=== PATIENT | female | born 1945 | race Caucasian/White ===

== ENCOUNTER 2019-09-16 10:27 | Emergency (ER) | payer MEDICARE ==
[~2019-09-16] VITALS: Ht 157.5 cm; Wt 59.1 kg
[2019-09-16 11:07] LABS: BASOPHILS % (AUTO) 0.6 % (0-1); EOSINOPHILS % (AUTO) 0.3 % (0-6); HEMATOCRIT 36.7 % (35.0-45.0); HEMOGLOBIN 12.6 g/dl (12.0-16.0); LYMPHOCYTES % (AUTO) 20.8 % (21-51); MEAN CORPUSCULAR HEMOGLOBIN 32.3 PG (27.0-31.0); MEAN CORPUSCULAR HGB CONC 34.3 g/dL (33.0-36.5); MEAN CORPUSCULAR VOLUME 94.1 FL (78-98); MEAN PLATELET VOLUME 8.9 FL (7.4-10.4); MONOCYTES # (AUTO) 0.7 X10'3 (0-0.9); NEUTROPHILS # (AUTO) 3.2 X10'3 (1.8-7.7); NEUTROPHILS % (AUTO) 64.3 % (42-75); PLATELET COUNT 299 X10'3 (140-440); RED CELL DISTRIBUTION WIDTH 14.9 % (11.5-14.5)
--- NOTE | 2019-09-16 11:15 | NUR ---
SPOKE WITH AVNI LIZAMA, CLINICIAN FOR [facility] REGARDING PT'S 5150. STATED THAT THE FACILITY CARE TAKERS HAVE NOTICED A DECLINE IN THE PT'S WELL BEING OVER THE PAST MTH, PT IS REFUSING TO BATHE, SLEEP IN HER BED, WILL NOT CHANGE HER CLOTHING FOR THE PAST MONTH. MS LIZAMA STATES THAT SHE HAD A MEETING WITH HER CONSERVATOR, FAMILY, STAFF AND IT WAS FELT THAT "PT NEEDED A HIGHTER LEVEL OF CARE". IT WAS MENTIONED THAT PT HAD A UTI OVER A MTH AGO AND WAS TX WITH ABX, A RECHECK WITH HER PMD WAS DONE LAST MTH FOR THE SAME UTI. NO FURTHER VISITS TO THE PT'S PMD HAS BEEN MADE AND IT WAS STATED THAT PT IS EXHIBITING SIMILAR BEHAVIORS NOW WHEN SHE HAD THE PAST UTI.
--- NOTE | 2019-09-16 11:15 | NUR ---
pt is a smoker. gem than a pack a day. pt refused smoking cessation and offered patch.
[2019-09-16 11:19] LABS: ALANINE AMINOTRANSFERASE 24 U/L (12-78); ALBUMIN 3.2 G/DL (3.4-5.0); ALBUMIN/GLOBULIN RATIO 0.7 (1.1-1.5); ALKALINE PHOSPHATASE 69 IU/L (46-116); ANION GAP 5 (8-16); ASPARTATE AMINO TRANSFERASE 18 U/L (10-37); BILIRUBIN,TOTAL 0.3 MG/DL (0.1-1.0); BLOOD UREA NITROGEN 10 MG/DL (7-18); BUN/CREATININE RATIO 17.5 (6.6-38.0); CALCIUM 9.1 MG/DL (8.5-10.1); CHLORIDE 96 MMOL/L (99-107); CREATININE 0.57 MG/DL (0.40-0.90); GLUCOSE 93 MG/DL (70-104); POTASSIUM 3.6 MMOL/L (3.5-5.1); SODIUM 131 MMOL/L (135-145); TOTAL CARBON DIOXIDE 30.3 MMOL/L (24-32); TOTAL PROTEIN 7.6 G/DL (6.4-8.2); eGFR > 90 ML/MIN
[2019-09-16 11:20] VITALS: BP 153/122
[2019-09-16 11:30] LABS: CLARITY,URINE CLEAR (Clear); COLOR,URINE YELLOW (Yellow); GLUCOSE, URINE NEGATIVE (Neg); KETONES,URINE NEGATIVE (Neg); LEUKOCYTE ESTERASE ,URINE NEGATIVE (Neg); NITRITES, URINE NEGATIVE (Neg); OCCULT BLOOD,URINE SMALL (Neg); PH,URINE 7.5 (4.8-8.0); PROTEIN,URINE NEGATIVE (Neg); UROBILINOGEN,URINE 0.2 E.U/dL (0.2-1.0)
[2019-09-16 11:31] LABS: ETHANOL < 0.010 GM/DL (0.0-0.010)
[2019-09-16 11:31] LABS: URINE AMPHETAMINE SCREEN NEGATIVE (Neg); URINE BARBITUATE SCREEN NEGATIVE (Neg); URINE BENZODIAZEPINES SCREEN NEGATIVE (Neg); URINE CANNABINOID SCREEN NEGATIVE (Neg); URINE COCAINE SCREEN NEGATIVE (Neg); URINE METHADONE SCREEN NEGATIVE (Neg); URINE OPIATE SCREEN NEGATIVE (Neg); URINE PHENCYCLIDINE SCREEN NEGATIVE (Neg)
[2019-09-16 11:35] LABS: MUCUS STRANDS MODERATE /LPF (Neg); SQUAMOUS EPITHELIAL CELL,UR MODERATE /LPF (FEW); UA COLLECTION TYPE CLN CATCH MIDSTREAM
[2019-09-16 11:36] LABS: BACTERIA,URINE FEW /HPF (Neg); WBC,URINE 0-4 /HPF (0-4)
--- NOTE | 2019-09-16 12:00 | NUR ---
pt recieved a sandwich, juice, cheese, and milk. pt requested a new brief.
[2019-09-16] MEDS ORDERED: OXYB5TAB16 PO (12:43)
[2019-09-16] MEDS ORDERED: RISP2TAB3 PO (12:43)
[2019-09-16] MEDS ORDERED: LURA40TA3 PO (12:43)
[2019-09-16] MEDS ORDERED: LURA120T PO (12:43)
[2019-09-16] MEDS ORDERED: BENZ1TAB7 PO (12:43)
[2019-09-16] MEDS ORDERED: DIVA-74 PO (12:43)
--- NOTE | 2019-09-16 13:14 | NUR ---
PACKET FAXED TO [facility]
--- NOTE | 2019-09-16 13:34 | NUR ---
Recieved conservator paperwook. Placed in chart.
--- NOTE | 2019-09-16 14:05 | NUR ---
pt eat a whole tray for lunch in addition to the snack earlier
--- NOTE | 2019-09-16 15:02 | NUR ---
Called [facility]. I was informed all calls should be made to public guardian not them. Medications were administered at 0730 this am.
[2019-09-16] MEDS ORDERED: benztropine 1mg tablet PO SCH (15:30)
[2019-09-16] MEDS ORDERED: OLANZapine 2.5MG tablet PO SCH (15:35)
--- NOTE | 2019-09-16 15:38 | NUR ---
SPOKE TO SAMIR SWANN ON THE [facility] FLOOR. PT IS GETTING INCREASINGLY MORE AGITATED. HUE GROSSMAN ORDERED ZYPREXA 5 MG ONCE WHICH MAY BE REPEATED IN ONE HOUR IF INEFFECTIVE. Spoke to IVAN Rodriguez on [facility]. Pt is accepted up on the floor. Michael reports that he spoke to Public Guardian who states that Pt's bed will be held for one month.
[2019-09-16] MEDS ORDERED: oxybutynin 5mg tablet PO SCH (16:00)
[2019-09-16] MEDS ORDERED: lurasidone 20mg tablet PO SCH (16:00)
[2019-09-16] MEDS ORDERED: risperiDONE 2mg tablet PO SCH (20:00)
[2019-09-16] MEDS ORDERED: divalproex sodium 250mg tablet PO SCH (20:00)
[2019-09-17] MEDS ORDERED: lurasidone 60mg tablet PO SCH (07:30)
== END 2019-09-16 16:39 ==
LOC: ER 10:27
DX: F88 Other disorders of psychological development (principal); R62.7 Adult failure to thrive; I10 Essential (primary) hypertension; Z88.0 Allergy status to penicillin; Z88.8 Allergy status to other drugs, medicaments and biological substances; Z79.899 Other long term (current) drug therapy
CPT/HCPCS: 36415; 80053; 80305; 80320; 81001; 84443; 85025; 99285

== ENCOUNTER 2019-09-16 15:50 | Inpatient (IN) | payer MEDICARE, MEDICAID ==
[~2019-09-16] VITALS: Ht 152.4 cm; Wt 60.2 kg
[~2019-09-16 15:50] MED LIST: BENZ1TAB7 PO; DIVA-74 PO; LURA120T PO; LURA40TA3 PO; OXYB5TAB16 PO; RISP2TAB3 PO
[2019-09-16] MEDS ORDERED: acetaminophen 325mg tablet PO PRN ×2 (16:35)
[2019-09-16] MEDS ORDERED: LORazepam 1 MG tablet PO PRN (16:35)
[2019-09-16] MEDS ORDERED: NICOTINE POLACRILEX 2 MG LOZENGE BC PRN (16:35)
[2019-09-16] MEDS ORDERED: mag hydrox/Alum hydrox/simeth 30ml oral suspension PO PRN (16:35)
[2019-09-16] MEDS ORDERED: loperamide 2mg capsule PO PRN (16:35)
[2019-09-16] MEDS ORDERED: magnesium hydroxide 30ml (MOM) UD suspension PO PRN (16:35)
--- NOTE | 2019-09-16 18:16 | NUR ---
NURSING ADMIT NOTE Patient resides at [facility] and is LPS Conserved. As reported from B/C over the past month patients health has been declining. She has been refusing to go on outings, refusing to bath, eat, and refusing to sleep in her bed. Patient reported that her brain is not working right. Patient placed on 5150 for GD on 09/16/19 and brought to [facility]. Patient admitted to unit 1650, brought up by Apolinar Rodriguez. This RN and RN Shabnam Campos attempted to do a skin check and get patient into shower. Patient refused both and requested to be taken to her room. Patient demanded her belongings and was fixated on her coke bottle that she had to have to drink water. Patient escorted to her room. MRSA swab collected and taken to the lab. Med rec completed.
[2019-09-16 20:00] VITALS: BP 119/66
[2019-09-16 21:54] VITALS: BP 119/66
[2019-09-16] MEDS: divalproex sodium 250mg tablet PO SCH (21:59)
[2019-09-16] MEDS: risperiDONE 2mg tablet PO SCH (22:00)
[2019-09-16] MEDS: benztropine 1mg tablet PO SCH (22:00)
--- NOTE | 2019-09-17 00:05 | NUR ---
Nurse note: Patient allowed staff to get vitals signs this shift and do a physical assessment, but towards the end of the assessment became irritable and declined rest of assessment. Patient stated "Are you fucking kidding me, I just want to sleep." and asked staff to leave. She refused to answer questions, refused 2 RN Skin Assessment and refused to sign paperwork. She remained irritable and asked staff to leave her alone so she could sleep. She remained in her room in bed refusing to work with staff the remainder of the shift.
[2019-09-17 08:00] VITALS: BP 154/73
[2019-09-17] MEDS ORDERED: lurasidone 60mg tablet PO SCH (08:00)
[2019-09-17] MEDS: nicotine 21mg patch - 24 hr TD SCH (08:00)
[2019-09-17] MEDS: benztropine 1mg tablet PO SCH ×2 (08:13→20:00)
[2019-09-17] MEDS: divalproex sodium 250mg tablet PO SCH ×2 (08:13→20:00)
[2019-09-17] MEDS: oxybutynin 5mg tablet PO SCH (08:14)
[2019-09-17] MEDS: risperiDONE 2mg tablet PO SCH ×2 (08:14→20:00)
[2019-09-17] MEDS: lurasidone 20mg tablet PO SCH (08:15)
--- NOTE | 2019-09-17 13:15 | NUR ---
Met with Adriane to complete Psychosocial Assessment. She reported she has been living at [facility] and wants to return there. She identified that she has been paranoid and has not wanted to go on outings. Per 5150 evaluation, Adriane had been reusing to bathe, refusing to sleep in her bed, wore the same clothes for the past month, only eating one meal a day and has lost 10 lbs since March. She has also been refusing to go on outings. Adriane has a long history of conservatorship and has been at [facility] since 2016 without any hospitalizations. DELMA Roldan Addendum: 09/17/19 at 1321 by Miriam Quigley Amended: Links added.
--- NOTE | 2019-09-17 13:21 | NUR ---
DISCHARGE PLANNING Called [facility] office to inquire if Ct is able to return to [facility] upon discharge. TRENT Marina, reported Ct is able to return to [facility] once she is stabilized. DELMA Roldan
--- NOTE | 2019-09-17 17:17 | NUR ---
Nursing Progress Note Legal hold:LPS Client on voluntary/involuntary status for . Report received from Charity with use of SBAR Why are they here: Lives at [facility], decompensated. Assessment What has happened this shift: The patient was up at change of shift. Upset that routine is different her regarding meals and medication times. She was able to adapt today to new environment without much trouble. Interacted with others. Paranoid about medications, "they don't look like my meds." S/I, H/I:[] A/VH: [] Sleep:[] ADL's:[] Group attendance:[] Were meds taken:[] Any med S/E[] Mental Status Exam Appearance: disheveled, wearing a wig, makeup messy Eye contact: direct Behavior: paranoid, argumentative Speech:clear Mood:labile Affect: constricted Thought process: delusional Thought Content: medications Cognition: alert Insight: impaired Judgment: impaired Interventions PRN's used:None Therapeutic interventions:[] Restraints/seclusion/emergency medication:[] Justification of Continued Inpatient Treatment:[]
--- NOTE | 2019-09-18 01:20 | NUR ---
Nursing Progress Note Legal hold:LPS Client on voluntary/involuntary status for . Report received from Kilo with use of SBAR Why are they here: 73 year old female with history of schizophrenia. [facility] Patient was brought from [facility] because she her health has been steadily declining over the past six weeks and clinician at this facility established that patient needed a higher level of care. Worsening paranoid delusions. Patient has lost weight, is not engaging in any activities outside of her home, is refusing to wash her clothing, or take showers. She becomes irritable when confronted about her hygiene. She has been having decreased energy levels. Patient is not able to take care of basic needs by herself, [facility] evaluated the patient and placed her on a 5150 hold for gravely disabled. Assessment What has happened this shift: Patient is observed sitting in in chair outside of tv room during shift change. When this writer editor introduced self to patient, she seemed a little agitated and stated that she did not want to have physical assessment done. " I just want my night time meds because they knock me out anyway". Later on patient resumed to her room and allowed this writer editor to perform 1:1 physical assessment. Was very cooperative and even smiling, stating that she loves nurses and trust everybody here. Took all her medications without any issues. Pt remained isolative in her room most of the evening and slept for most of the night. S/I, H/I: Denies A/VH: Denies Sleep: See sleep assessment ADL's: Independent with some prompting Group attendance: None during fast food shift supervisor Were meds taken: Yes Any med S/E: None noted or observed Mental Status Exam Appearance: disheveled, wearing a wig, makeup messy Eye contact: direct Behavior: paranoid, Speech:clear Mood:labile Affect: constricted Thought process: delusional Thought Content: medications Cognition: alert and oriented x3 Insight: impaired Judgment: impaired Interventions PRN's used:None Therapeutic interventions: 1:1 therapeutic assessment, maintained safe therapeutic milieu, provided active listening with positive reinforcement, provided medication administration/education/monitoring as needed; Q15 safety checks. Restraints/seclusion/emergency medication: None Justification of Continued Inpatient Treatment: Patient is gravely disabled and is unable to take care of basic needs. Continued therapeutic support and medication management needed to provide stabilization, prevent decompensation, improve coping mechanisms decreasing risk to patient and re-admittance
[2019-09-18] MEDS: nicotine 21mg patch - 24 hr TD SCH (08:00)
[2019-09-18 08:12] LABS: CHOL/HDL RATIO 2.8 (0.00-4.99); CHOLESTEROL 144 MG/DL (0-200); HDL CHOLESTEROL 51 MG/DL (35-60); LDL CHOLESTEROL 88 MG/DL (50-100); TRIGLYCERIDES 64 MG/DL (20-135)
[2019-09-18] MEDS: oxybutynin 5mg tablet PO SCH (08:19)
[2019-09-18] MEDS: divalproex sodium 250mg tablet PO SCH ×2 (08:19→19:47)
[2019-09-18] MEDS: benztropine 1mg tablet PO SCH ×2 (08:19→19:47)
[2019-09-18] MEDS: lurasidone 20mg tablet PO SCH (08:19)
[2019-09-18] MEDS: risperiDONE 2mg tablet PO SCH ×2 (08:19→19:47)
--- NOTE | 2019-09-18 11:47 | NUR ---
Malnutrition Consult: Pt BMI low for age at 19.4. Pt has no reliable weight hx to determine for weight loss. BLE edema, +1 trace. PO intake 75-100%, meeting nutrient needs. Patient appears to have good appetite. Last BM 09/17. Pt does not have minimum of 2 criteria for malnutrition. Will continue to monitor. Addendum: 09/18/19 at 1148 by Wing Layton SABILLON Amended: Links added. Addendum: 09/18/19 at [address] RD agree with cad intern note
--- NOTE | 2019-09-18 16:52 | NUR ---
Nursing Progress Note Legal hold:LPS Client on voluntary/involuntary status for . Report received from ARPIT Roe with use of SBAR Why are they here: 73 year old female with history of schizophrenia. Lives at [facility]. Patient was brought from [facility] because she her health has been steadily declining over the past six weeks and clinician at this facility established that patient needed a higher level of care. Worsening paranoid delusions. Patient has lost weight, is not engaging in any activities outside of her home, is refusing to wash her clothing, or take showers. She becomes irritable when confronted about her hygiene. She has been having decreased energy levels. Patient is not able to take care of basic needs by herself, [facility] evaluated the patient and placed her on a 5150 hold for gravely disabled. Assessment What has happened this shift: The patient was asleep at change of shift. She was up in the group room before breakfast. Paranoid thoughts regarding staff, the water faucet and her roommate at about 1600. She became agitated and loud and could not be consoled. Tried to give prn Ativan but patient was too suspicious. she was told she would have to clam down and stop yelling which she was able to do. Reported feeling tired. No other issues. S/I, H/I: Denies A/VH: Denies Sleep: None ADL's: Independent with some prompting Group attendance: yes Were meds taken: Yes Any med S/E: None noted or observed Mental Status Exam Appearance: disheveled, wearing a wig, makeup messy Eye contact: direct Behavior: paranoid, Speech:clear Mood:labile Affect: constricted Thought process: delusional Thought Content: medications, staff, roommate, water faucet Cognition: alert Insight: impaired Judgment: impaired Interventions PRN's used:None Therapeutic interventions: 1:1 therapeutic assessment, maintained safe therapeutic milieu, provided active listening with positive reinforcement, provided medication administration/education/monitoring as needed; Q15 safety checks. Restraints/seclusion/emergency medication: None Justification of Continued Inpatient Treatment: Patient is gravely disabled and is unable to take care of basic needs. Continued therapeutic support and medication management needed to provide stabilization, prevent decompensation, improve coping mechanisms decreasing risk to patient and re-admittance
[2019-09-18] MEDS: lurasidone 60mg tablet PO SCH (17:58)
--- NOTE | 2019-09-18 19:29 | NUR ---
Nursing note: Pt refused all vital signs Addendum: 09/18/19 at 1930 by Isabel Nicole RN Amended: Links added.
--- NOTE | 2019-09-19 01:40 | NUR ---
Nursing Progress Note Legal hold:LPS Client on voluntary/involuntary status for . Report received from ARPIT Boateng with use of SBAR Why are they here: 73 year old female with history of schizophrenia. Lives at [facility], decompensated. Patient was brought from [facility] because she her health has been steadily declining over the past six weeks and clinician at this facility established that patient needed a higher level of care. Worsening paranoid delusions. Patient has lost weight, is not engaging in any activities outside of her home, is refusing to wash her clothing, or take showers. She becomes irritable when confronted about her hygiene. She has been having decreased energy levels. Patient is not able to take care of basic needs by herself, [facility] evaluated the patient and placed her on a 5150 hold for gravely disabled. Assessment What has happened this shift: Pt was observed sitting in chair outside of TV room during shift change. Guarded and agitated when this software writer introduce self. She was upset at first, not wanting to talk at all to this software writer but having a conversation with self. Reluctant to care but allowed this software writer to perform 1:1 physial assessment and took all her medications without any issues. Patient did refuse all vital signs. She kept repeating that she took a shower and stated that she wanted to go back to [facility]. She became very agitated later on, arguing with roommate because she did not want to go to sleep or turn the light off. She was also upset because she didn't have the right size of clothing. Tried to give patient Ativan but patient refused. After telling patient that if she didn't cooperate and calm down, she would have to be given a shot. She eventually agreed to lay down. Remained in her room for most of the night. Internally occupied. S/I, H/I: Denies A/VH: Denies Sleep: None ADL's: Independent with some prompting Group attendance: none during rn shift mgr Were meds taken: Yes Any med S/E: None noted or observed Mental Status Exam Appearance: disheveled, wearing a wig, makeup messy Eye contact: direct Behavior: paranoid, agitated, uncooperative Speech:clear, mumbled Mood:labile Affect: constricted Thought process: delusional Thought Content: medications, staff, roommate, water faucet Cognition: alert Insight: impaired Judgment: impaired Interventions PRN's used:None Therapeutic interventions: 1:1 therapeutic assessment, maintained safe therapeutic milieu, provided active listening with positive reinforcement, provided medication administration/education/monitoring as needed; Q15 safety checks. Restraints/seclusion/emergency medication: None Justification of Continued Inpatient Treatment: Patient is gravely disabled and is unable to take care of basic needs. Continued therapeutic support and medication management needed to provide stabilization, prevent decompensation, improve coping mechanisms decreasing risk to patient and re-admittance
[2019-09-19 08:00] VITALS: BP 170/84
[2019-09-19] MEDS: nicotine 21mg patch - 24 hr TD SCH (08:00)
[2019-09-19] MEDS: divalproex sodium 250mg tablet PO SCH ×2 (08:18→20:00)
[2019-09-19] MEDS: lurasidone 20mg tablet PO SCH (08:18)
[2019-09-19] MEDS: benztropine 1mg tablet PO SCH ×2 (08:18→21:44)
[2019-09-19] MEDS: risperiDONE 2mg tablet PO SCH ×2 (08:19→21:45)
[2019-09-19] MEDS: oxybutynin 5mg tablet PO SCH (08:19)
[2019-09-19 15:00] VITALS: BP 142/79
--- NOTE | 2019-09-19 15:01 | NUR ---
Nursing Progress Note Legal hold:LPS Client on voluntary/involuntary status for . Report received from ARPIT Roe with use of SBAR Why are they here: 73 year old female with history of schizophrenia. [facility] Patient was brought from [facility] because she her health has been steadily declining over the past six weeks and clinician at this facility established that patient needed a higher level of care. Worsening paranoid delusions. Patient has lost weight, is not engaging in any activities outside of her home, is refusing to wash her clothing, or take showers. She becomes irritable when confronted about her hygiene. She has been having decreased energy levels. Patient is not able to take care of basic needs by herself, [facility] evaluated the patient and placed her on a 5150 hold for gravely disabled. Assessment What has happened this shift: The patient was asleep at change of shift. She was up in the group room before breakfast. Paranoid thoughts regarding staff, and her roommate in the late morning. Yelling at roommate, calling her names and annoying her while in the bathroom. She was not redirectable. The roommate will have a new bed assignment. Patient slept in the afternoon. S/I, H/I: Denies A/VH: Denies Sleep: None ADL's: needs prompting Group attendance: no Were meds taken: Yes Any med S/E: None noted or observed Mental Status Exam Appearance: disheveled, wearing a wig, makeup messy Eye contact: direct Behavior: paranoid, Speech:clear Mood:labile Affect: constricted Thought process: delusional Thought Content: medications, staff, roommate Cognition: alert Insight: impaired Judgment: impaired Interventions PRN's used:None Therapeutic interventions: 1:1 therapeutic assessment, maintained safe therapeutic milieu, provided active listening with positive reinforcement, provided medication administration/education/monitoring as needed; Q15 safety checks. Restraints/seclusion/emergency medication: None Justification of Continued Inpatient Treatment: Patient is gravely disabled and is unable to take care of basic needs. Continued therapeutic support and medication management needed to provide stabilization, prevent decompensation, improve coping mechanisms decreasing risk to patient and re-admittance
[2019-09-19] MEDS: lurasidone 60mg tablet PO SCH (17:24)
[2019-09-19] MEDS: propranolol 10mg tablet PO SCH (21:43)
[2019-09-19] MEDS: risperiDONE 0.25mg tablet PO SCH (21:45)
--- NOTE | 2019-09-20 00:36 | NUR ---
Nursing Progress Note Legal hold:LPS Client on voluntary/involuntary status for . Report received from ARPIT Boateng with use of SBAR Why are they here: 73 year old female with history of schizophrenia. [facility] Patient was brought from [facility] because she her health has been steadily declining over the past six weeks and clinician at this facility established that patient needed a higher level of care. Worsening paranoid delusions. Patient has lost weight, is not engaging in any activities outside of her home, is refusing to wash her clothing, or take showers. She becomes irritable when confronted about her hygiene. She has been having decreased energy levels. Patient is not able to take care of basic needs by herself, [facility] evaluated the patient and placed her on a 5150 hold for gravely disabled. Assessment What has happened this shift: The patient sitting in group room at start of shift. When approached yelled "leave me alone" Did not answer any questions. Pt is verbally responding to internal stimuli. Refused VS. Refused to take medications on first approach. Second try pt refused again "I don't take medications at night" Patiently explained each medication to pt and finally she did take them. S/I, H/I: Denies A/VH: Denies Sleep: asleep at this time ADL's: refused Were meds taken: Yes Any med S/E: None noted or observed Mental Status Exam Appearance: disheveled, wearing a wig, makeup messy Eye contact: direct Behavior: paranoid, Speech:clear Mood:labile Affect: constricted Thought process: delusional Thought Content: medications, staff, roommate Cognition: alert Insight: impaired Judgment: impaired Interventions PRN's used:None Therapeutic interventions: 1:1 therapeutic assessment, maintained safe therapeutic milieu, provided active listening with positive reinforcement, provided medication administration/education/monitoring as needed; Q15 safety checks. Restraints/seclusion/emergency medication: None Justification of Continued Inpatient Treatment: Patient is gravely disabled and is unable to take care of basic needs. Continued therapeutic support and medication management needed to provide stabilization, prevent decompensation, improve coping mechanisms decreasing risk to patient and re-admittance
[2019-09-20] MEDS: nicotine 21mg patch - 24 hr TD SCH (08:00)
[2019-09-20] MEDS: propranolol 10mg tablet PO SCH ×4 (08:00→20:25)
[2019-09-20] MEDS: lurasidone 20mg tablet PO SCH (08:29)
[2019-09-20] MEDS: benztropine 1mg tablet PO SCH ×2 (08:30→20:25)
[2019-09-20] MEDS: risperiDONE 0.25mg tablet PO SCH ×2 (08:30→20:25)
[2019-09-20] MEDS: divalproex sodium 250mg tablet PO SCH (08:31)
[2019-09-20] MEDS: oxybutynin 5mg tablet PO SCH (08:31)
[2019-09-20] MEDS: risperiDONE 2mg tablet PO SCH ×2 (08:32→20:25)
--- NOTE | 2019-09-20 15:22 | NUR ---
Nursing Progress Note Legal hold:LPS Client on voluntary/involuntary status for . Report received from ARPIT Roe with use of SBAR Why are they here: 73 year old female with history of schizophrenia. [facility] Patient was brought from [facility] because she her health has been steadily declining over the past six weeks and clinician at this facility established that patient needed a higher level of care. Worsening paranoid delusions. Patient has lost weight, is not engaging in any activities outside of her home, is refusing to wash her clothing, or take showers. She becomes irritable when confronted about her hygiene. She has been having decreased energy levels. Patient is not able to take care of basic needs by herself, [facility] evaluated the patient and placed her on a 5150 hold for gravely disabled. Assessment What has happened this shift: The patient was awake at change of shift, up and walking in hallway. She was in the group room before breakfast. Paranoid thoughts regarding medications. Would not take Inderal stating, "I don't need that , I don't take that at [facility]." Paranoid about staff and meds but with reassurance and patience was able to take all other medications. States, "I just want to go home, I don't like it here, it's boring." some swearing and yelling at others but outbursts don't last a long time. Watches TV with others and can settle in and be engaged most of the time. S/I, H/I: Denies A/VH: Denies Sleep: Napped ADL's: needs prompting Group attendance: yes Were meds taken: Yes Any med S/E: None noted or observed Mental Status Exam Appearance: disheveled, wearing a wig Eye contact: direct Behavior: paranoid, Speech:clear Mood:labile Affect: constricted Thought process: delusional Thought Content: medications, staff, wanting to go home Cognition: alert Insight: impaired Judgment: impaired Interventions PRN's used:None Therapeutic interventions: 1:1 therapeutic assessment, maintained safe therapeutic milieu, provided active listening with positive reinforcement, provided medication administration/education/monitoring as needed; Q15 safety checks. Restraints/seclusion/emergency medication: None Justification of Continued Inpatient Treatment: Patient is gravely disabled and is unable to take care of basic needs. Continued therapeutic support and medication management needed to provide stabilization, prevent decompensation, improve coping mechanisms decreasing risk to patient and re-admittance
[2019-09-20] MEDS: lurasidone 60mg tablet PO SCH ×2 (17:14→18:00)
--- NOTE | 2019-09-20 18:21 | NUR ---
PATIENT REFUSED LATUDA 09/20/19 1800 DOSE Patient became agitated when she could not have all HS medications before dinner as they do at [facility]. Became angry and would not take her Latuda with dinner.
[2019-09-20 19:57] VITALS: BP 191/96
[2019-09-20] MEDS: divalproex sod 125mg sprinkle cap PO SCH ×2 (20:25→21:00)
--- NOTE | 2019-09-21 03:25 | NUR ---
Nursing Progress Note Legal hold: LPS Client on involuntary status for GD. Report received from ARPIT Boateng with use of SBAR Why are they here: 73 year old female with history of schizophrenia. Lives at [facility], [facility]. Patient was brought from [facility] because she her health has been steadily declining over the past six weeks and clinician at this facility established that patient needed a higher level of care. Worsening paranoid delusions. Patient has lost weight, is not engaging in any activities outside of her home, is refusing to wash her clothing, or take showers. She becomes irritable when confronted about her hygiene. She has been having decreased energy levels. Patient is not able to take care of basic needs by herself, [facility] evaluated the patient and placed her on a 5150 hold for gravely disabled. Assessment What has happened this shift: The patient was seen in the rec room at shift change. 1:1 completed in rec room. The patient told me to get lost, "and take those other Nurse bitches with you." The patient states that she wants to return to [facility], "I don't want to have to put up with other people somewhere else." The patient spent the evening in the group room. When her HS meds came she said no to Depakote Sandeep. "That's too much for me; it's enough to kill everybody. You people are trying to kill me." She also would only take half of her Cogentin, "I don't take that at [facility]." At 0345 the patient was found to be incontinent of urine that ran down to the floor. The room adn floor was cleaned, but the patient would not let anyone help her change. S/I, H/I: Denies A/VH: Denies Sleep: See sleep hours ADL's: Refusing to do basic ADLs Were meds taken: Yes Any med S/E: None noted or observed Mental Status Exam Appearance: disheveled, wearing a wig, makeup messy all over her face. Eye contact: Avoids Behavior: Paranoid, persecutory. Speech: Normal Mood: Labile Affect: Constricted Thought process: Delusional Thought Content: Medications, staff, roommate Cognition: alert Insight: Impaired Judgment: Impaired Interventions PRN's used:None Therapeutic interventions: 1:1 therapeutic assessment, maintained safe therapeutic milieu, provided active listening with positive reinforcement, provided medication administration/education/monitoring as needed; Q15 safety checks. Restraints/seclusion/emergency medication: None Justification of Continued Inpatient Treatment: Patient is gravely disabled and is unable to take care of basic needs. Continued therapeutic support and medication management needed to provide stabilization, prevent decompensation, improve coping mechanisms decreasing risk to patient and re-admittance
[2019-09-21] MEDS: lurasidone 20mg tablet PO SCH (07:46)
[2019-09-21] MEDS: propranolol 10mg tablet PO SCH ×4 (07:47→20:54)
[2019-09-21] MEDS: divalproex sodium 250mg tablet PO SCH (07:47)
[2019-09-21] MEDS: benztropine 1mg tablet PO SCH ×2 (07:47→20:27)
[2019-09-21] MEDS: risperiDONE 0.25mg tablet PO SCH ×2 (07:47→20:26)
[2019-09-21] MEDS: risperiDONE 2mg tablet PO SCH ×2 (07:47→20:26)
[2019-09-21] MEDS: oxybutynin 5mg tablet PO SCH (07:47)
[2019-09-21 07:48] VITALS: BP 136/106
[2019-09-21] MEDS: nicotine 21mg patch - 24 hr TD SCH (08:00)
--- NOTE | 2019-09-21 09:55 | NUR ---
Initial: Pt admit w/ psychosis currently AOx3 per EMR. A1C <7 PO 75-100% avg regular diet meeting needs. LBM 09/20. No nutrition concerns at this time. Will continue to monitor. Rec: 1. continue regular diet 2. bowel care as needed 3. wt per rx Addendum: 09/21/19 at [address] Amended: Links added.
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
--- NOTE | 2019-09-21 17:14 | NUR ---
Nursing Progress Note Legal hold:LPS Client on voluntary/involuntary status for . Report received from ARPIT Johnson with use of SBAR Why are they here: 73 year old female with history of schizophrenia. Lives at [facility], [facility]. Patient was brought from [facility] because she her health has been steadily declining over the past six weeks and clinician at this facility established that patient needed a higher level of care. Worsening paranoid delusions. Patient has lost weight, is not engaging in any activities outside of her home, is refusing to wash her clothing, or take showers. She becomes irritable when confronted about her hygiene. She has been having decreased energy levels. Patient is not able to take care of basic needs by herself, [facility] evaluated the patient and placed her on a 5150 hold for gravely disabled. Assessment What has happened this shift: Pt very labile today and was very jparanoid r/t medications this morning. Pt would only take one miligram of cogentin and refused her inderal saying, I knew a lady once who was taking her blood pressure medicine, then stopped, then started again and . . .they killed her Pt was cursing and yelling at others, but as the day went on, she became more agreeable and went on patio walk. Pt refused to answer questions r/t aud. Hallucinations, but did state she did not have suicidal thoughts and was not depressed, but did want to get back to [facility]. Pt incontinent of urine x 1. Pt changed and cleaned herself. S/I, H/I: Denies A/VH: Denies Sleep: Napped ADL's: needs prompting Group attendance: yes Were meds taken: Yes Any med S/E: None noted or observed Mental Status Exam Appearance: disheveled, wearing a wig Eye contact: direct Behavior: paranoid, Speech:clear Mood:labile Affect: constricted Thought process: delusional Thought Content: medications, staff, wanting to go home Cognition: alert Insight: impaired Judgment: impaired Interventions PRN's used:None Therapeutic interventions: 1:1 therapeutic assessment, maintained safe therapeutic milieu, provided active listening with positive reinforcement, provided medication administration/education/monitoring as needed; Q15 safety checks. Restraints/seclusion/emergency medication: None Justification of Continued Inpatient Treatment: Patient is gravely disabled and is unable to take care of basic needs. Continued therapeutic support and medication management needed to provide stabilization, prevent decompensation, improve coping mechanisms decreasing risk to patient and re-admittance
[2019-09-21] MEDS: lurasidone 60mg tablet PO SCH (18:19)
[2019-09-21] MEDS: divalproex sod 125mg sprinkle cap PO SCH (20:55)
--- NOTE | 2019-09-22 03:18 | NUR ---
Nursing Progress Note Legal hold: LPS Client on involuntary status for GD. Report received from ARPIT Boateng with use of SBAR Why are they here: 73 year old female with history of schizophrenia. Lives at [facility], [facility]. Patient was brought from [facility] because she her health has been steadily declining over the past six weeks and clinician at this facility established that patient needed a higher level of care. Worsening paranoid delusions. Patient has lost weight, is not engaging in any activities outside of her home, is refusing to wash her clothing, or take showers. She becomes irritable when confronted about her hygiene. She has been having decreased energy levels. Patient is not able to take care of basic needs by herself, [facility] evaluated the patient and placed her on a 5150 hold for gravely disabled. Assessment What has happened this shift: The patient was on the unit shuffling down the smith at shift change. She was seen in her room for 1:1, but the patient was not feeling too cooperative. She told me to get the fk out of here. She could be heard in her room yelling about staff for a while. The patient again would not take Depakote sprinkles, Inderal, and only 1mg of Cogentin. S/I, H/I: Denies A/VH: Denies Sleep: See sleep hours ADL's: Refusing to do basic ADLs Were meds taken: Yes Any med S/E: None noted or observed Mental Status Exam Appearance: disheveled, wearing a wig, makeup messy all over her face. Eye contact: Avoids Behavior: Paranoid, persecutory. Speech: Normal Mood: Labile Affect: Constricted Thought process: Delusional, paranoid, persecutory. Thought Content: Medications, staff. Cognition: alert Insight: Impaired Judgment: Impaired Interventions PRN's used:None Therapeutic interventions: 1:1 therapeutic assessment, maintained safe therapeutic milieu, provided active listening with positive reinforcement, provided medication administration/education/monitoring as needed; Q15 safety checks. Restraints/seclusion/emergency medication: None Justification of Continued Inpatient Treatment: Patient is gravely disabled and is unable to take care of basic needs. Continued therapeutic support and medication management needed to provide stabilization, prevent decompensation, improve coping mechanisms decreasing risk to patient and re-admittance
[2019-09-22] MEDS: benztropine 1mg tablet PO SCH ×2 (07:26→20:00)
[2019-09-22] MEDS: propranolol 10mg tablet PO SCH ×4 (07:27→21:00)
[2019-09-22] MEDS: oxybutynin 5mg tablet PO SCH ×2 (07:27→21:00)
[2019-09-22] MEDS: risperiDONE 0.25mg tablet PO SCH ×2 (07:27→20:19)
[2019-09-22] MEDS: lurasidone 20mg tablet PO SCH (07:27)
[2019-09-22] MEDS: risperiDONE 2mg tablet PO SCH ×2 (07:27→20:19)
[2019-09-22] MEDS: divalproex sodium 250mg tablet PO SCH (07:27)
[2019-09-22 08:00] VITALS: BP 190/112
[2019-09-22] MEDS: nicotine 21mg patch - 24 hr TD SCH (08:00)
--- NOTE | 2019-09-22 17:11 | NUR ---
Nursing Progress Note Legal hold:LPS Client on voluntary/involuntary status for . Report received from ARPIT Johnson with use of SBAR Why are they here: 73 year old female with history of schizophrenia. [facility] was brought from [facility] because she her health has been steadily declining over the past six weeks and clinician at this facility established that patient needed a higher level of care. Worsening paranoid delusions. Patient has lost weight, is not engaging in any activities outside of her home, is refusing to wash her clothing, or take showers. She becomes irritable when confronted about her hygiene. She has been having decreased energy levels. Patient is not able to take care of basic needs by herself, [facility][1] evaluated the patient and placed her on a 5150 hold for gravely disabled. Assessment What has happened this shift: Pt less labile today but continues to be paranoid r/t medications. Pt still would only take one miligram of cogentin and refused her inderal. Pt states that she doesnt want that. PA and pillowcase maker both attempted to convince her that she needs it and that she may have a stroke if it remains this high and pt states, I dont care. I dont want it Pt did generally remain pleasant today and pillowcase maker says she is getting closer to her basline and is way better than upon admit. Pt did not shower today, but states shell take one tomorrow. S/I, H/I: Denies A/VH: Denies Sleep: Napped ADL's: needs prompting Group attendance: yes, partial Were meds taken: Yes Any med S/E: None noted or observed Mental Status Exam Appearance: disheveled, wearing a wig Eye contact: direct Behavior: paranoid, Speech:clear Mood:labile Affect: constricted Thought process: delusional Thought Content: medications, staff, wanting to go home Cognition: alert Insight: impaired Judgment: impaired Interventions PRN's used:None Therapeutic interventions: 1:1 therapeutic assessment, maintained safe therapeutic milieu, provided active listening with positive reinforcement, provided medication administration/education/monitoring as needed; Q15 safety checks. Restraints/seclusion/emergency medication: None Justification of Continued Inpatient Treatment: Patient is gravely disabled and is unable to take care of basic needs. Continued therapeutic support and medication management needed to provide stabilization, prevent decompensation, improve coping mechanisms decreasing risk to patient and re-admittance
[2019-09-22] MEDS: lurasidone 60mg tablet PO SCH (18:01)
--- NOTE | 2019-09-22 19:49 | NUR ---
Nurse Note: Vital Signs Patient refused vital signs this evening. At first she agreed to have them taken but when Tech attempted to obtain them, patient stated "Don't fucking touch me." then told staff "Just get out of my room." When attempted to take vitals again later patient denied again and stated " They don't take them at home like this." Addendum: 09/22/19 at 1951 by Mallory Cortez RN Amended: Links added.
[2019-09-22] MEDS: divalproex sod 125mg sprinkle cap PO SCH (21:00)
--- NOTE | 2019-09-22 22:19 | NUR ---
Nursing Progress Note Legal hold: LPS Client on voluntary/involuntary status for . Report received from ARPIT Boateng with use of SBAR Why are they here: 73 year old female with history of schizophrenia. [facility] was brought from [facility] because she her health has been steadily declining over the past six weeks and clinician at this facility established that patient needed a higher level of care. Worsening paranoid delusions. Patient has lost weight, is not engaging in any activities outside of her home, is refusing to wash her clothing, or take showers. She becomes irritable when confronted about her hygiene. She has been having decreased energy levels. Patient is not able to take care of basic needs by herself, [facility] evaluated the patient and placed her on a 5150 hold for gravely disabled. Assessment What has happened this shift: Patient in the group room at change of shift talking with others. Who mood changes rapidly, she is very friendly then angry and telling people what to do the next minute and then cussing under breath. She presents as labile this evening. She refuses her vital signs this evening and only allows for a minimal physical assessment to be done. She refuses most of her evening medications picking and choosing what she wants to take. She spends time in the hallways cussing at people under her breath and telling people what to do "Get me my water." "Stand here." "I want another cup, get me another cup." After doing this for sometime she does take her evening medications and then makes her way to her room and to bed. S/I, H/I: Denies A/VH: Denies Sleep: See sleep assessment ADL's: Needs prompting/resistive Group attendance: No groups this shift Were meds taken: Patient picks and chooses what medications she takes Any med S/E: None noted or observed Mental Status Exam Appearance: Disheveled, wearing a wig that is not brushed or washed Eye contact: Direct Behavior: Labile, paranoid Speech: Clear Mood: Labile Affect: Constricted Thought process: Delusional Thought Content: Medications not being correct, staff, wanting to go home Cognition: Alert Insight: impaired Judgment: Impaired Interventions PRN's used: None Therapeutic interventions: 1:1 therapeutic assessment, maintained safe therapeutic milieu, provided active listening with positive reinforcement, provided medication administration/education/monitoring as needed; Q15 safety checks. Restraints/seclusion/emergency medication: None Justification of Continued Inpatient Treatment: Patient is gravely disabled and is unable to take care of basic needs. Continued therapeutic support and medication management needed to provide stabilization, prevent decompensation, improve coping mechanisms decreasing risk to patient and re-admittance
[2019-09-23 08:00] VITALS: BP 192/96
[2019-09-23] MEDS: risperiDONE 0.25mg tablet PO SCH ×3 (08:00→21:24)
[2019-09-23] MEDS: benztropine 1mg tablet PO SCH ×3 (08:00→21:25)
[2019-09-23] MEDS: nicotine 21mg patch - 24 hr TD SCH (08:00)
[2019-09-23] MEDS: lurasidone 20mg tablet PO SCH ×2 (08:00→08:36)
[2019-09-23] MEDS: risperiDONE 2mg tablet PO SCH ×3 (08:00→21:24)
[2019-09-23] MEDS: propranolol 10mg tablet PO SCH ×4 (08:00→21:00)
[2019-09-23] MEDS: divalproex sod 125mg sprinkle cap PO SCH ×3 (08:00→21:00)
--- NOTE | 2019-09-23 15:02 | NUR ---
Nursing Progress Note Legal hold: LPS Client on voluntary/involuntary status for : N/A Report received from ARPIT Nash with use of SBAR Why are they here: 73 year old female with history of schizophrenia. Lives at [facility], [facility]. Patient was brought from [facility] because she her health has been steadily declining over the past six weeks and clinician at this facility established that patient needed a higher level of care. Worsening paranoid delusions. Patient has lost weight, is not engaging in any activities outside of her home, is refusing to wash her clothing, or take showers. She becomes irritable when confronted about her hygiene. She has been having decreased energy levels. Patient is not able to take care of basic needs by herself, [facility] evaluated the patient and placed her on a 5150 hold for gravely disabled. Assessment What has happened this shift: Patient is asleep at change of shift. Came to group room for breakfast with peers. B/P taken on calf which was high, refused a retake and/or different location. Labile and paranoid during med pass. First agreed to take medications, then started dictating what she would and would not take which did not match MD orders. She became argumentative and unreasonable and ultimately refusing all medications despite nursing's best efforts. She is up and about on unit and also naps frequently throughout day. Eating and drinking well. Refuses all other attempts to retake blood pressure. S/I, H/I: Denies A/VH: Denies Sleep: Naps ADL's: Needs prompting/resistive Group attendance: yes Were meds taken: No, refused Any med S/E: None noted or observed Mental Status Exam Appearance: Disheveled, wearing a wig that is not brushed or washed Eye contact: Direct Behavior: Labile, paranoid Speech: Clear Mood: Labile Affect: Constricted Thought process: Delusional Thought Content: Medications not being correct, staff, wanting to go home Cognition: Alert Insight: impaired Judgment: Impaired Interventions PRN's used: None Therapeutic interventions: 1:1 therapeutic assessment, maintained safe therapeutic milieu, provided active listening with positive reinforcement, provided medication administration/education/monitoring as needed; Q15 safety checks. Restraints/seclusion/emergency medication: None Justification of Continued Inpatient Treatment: Patient is gravely disabled and is unable to take care of basic needs. Continued therapeutic support and medication management needed to provide stabilization, prevent decompensation, improve coping mechanisms decreasing risk to patient and re-admittance
[2019-09-23] MEDS: lurasidone 60mg tablet PO SCH (18:00)
[2019-09-23] MEDS: oxybutynin 5mg tablet PO SCH (21:27)
[2019-09-23 21:41] VITALS: BP 179/65
--- NOTE | 2019-09-23 23:03 | NUR ---
Nursing Progress Note Legal hold: LPS Client on voluntary/involuntary status for . Report received from IVAN Rivera with use of SBAR Why are they here: 73 year old female with history of schizophrenia. Lives at [facility], [facility]. Patient was brought from [facility] because she her health has been steadily declining over the past six weeks and clinician at this facility established that patient needed a higher level of care. Worsening paranoid delusions. Patient has lost weight, is not engaging in any activities outside of her home, is refusing to wash her clothing, or take showers. She becomes irritable when confronted about her hygiene. She has been having decreased energy levels. Patient is not able to take care of basic needs by herself, [facility] evaluated the patient and placed her on a 5150 hold for gravely disabled. Assessment What has happened this shift: Pt sleeping in chair during shift change. Pt refused to have all vital signs taken at first but agreed this bid writer to take them. Was somewhat cooperative with 1:1 physical assessment and only agreed to take some of her medications. Very resistive to care and guarded. States that she doesn't want to take her blood pressure medication, even though it is high (179/65) because she doesn't want anything controlling her heart and she also states that she didn't take it at [facility]. This bid writer informed her of the consequences of having a high BP and not taking her medication but she still refused. She is labile but refuses any A/VH. She also refused her Depakote stating that she already took it in the morning and that at [facility] she took it in the morning and in the evening with dinner. eMar indicated that she did not actually take this medication. Pt remained sleeping in the chair and even when asked if she wanted to go to sleep in her bed she denied. S/I, H/I: Denies A/VH: Denies Sleep: See sleep assessment ADL's: Needs prompting/resistive Group attendance: No groups this shift Were meds taken: yes but not as prescribed Any med S/E: None noted or observed Mental Status Exam Appearance: Disheveled, wearing a wig that is not brushed or washed Eye contact: Direct Behavior: Agitated, paranoid Speech: Clear Mood: Labile Affect: Constricted, flat Thought process: Delusional Thought Content: Medications not being correct, staff, [facility] Cognition: Alert and oriented x3 Insight: impaired Judgment: Poor Interventions PRN's used: None Therapeutic interventions: 1:1 therapeutic assessment, maintained safe therapeutic milieu, provided active listening with positive reinforcement, provided medication administration/education/monitoring as needed; Q15 safety checks. Restraints/seclusion/emergency medication: None Justification of Continued Inpatient Treatment: Patient is gravely disabled and is unable to take care of basic needs. Continued therapeutic support and medication management needed to provide stabilization, prevent decompensation, improve coping mechanisms decreasing risk to patient and re-admittance
[2019-09-24] MEDS: propranolol 10mg tablet PO SCH ×3 (08:00→21:00)
[2019-09-24] MEDS: divalproex sod 125mg sprinkle cap PO SCH ×2 (08:00→21:00)
[2019-09-24] MEDS: nicotine 21mg patch - 24 hr TD SCH (08:00)
[2019-09-24] MEDS: risperiDONE 0.25mg tablet PO SCH ×2 (08:53→21:22)
[2019-09-24] MEDS: risperiDONE 2mg tablet PO SCH ×2 (08:53→21:22)
[2019-09-24] MEDS: lurasidone 20mg tablet PO SCH (08:54)
[2019-09-24] MEDS: benztropine 1mg tablet PO SCH ×2 (08:54→21:25)
--- NOTE | 2019-09-24 16:40 | NUR ---
Nursing Progress Note Legal hold:LPS Client on voluntary/involuntary status for . Report received from ARPIT Johnson with use of SBAR Why are they here: 73 year old female with history of schizophrenia. [facility] Patient was brought from [facility] because she her health has been steadily declining over the past six weeks and clinician at this facility established that patient needed a higher level of care. Worsening paranoid delusions. Patient has lost weight, is not engaging in any activities outside of her home, is refusing to wash her clothing, or take showers. She becomes irritable when confronted about her hygiene. She has been having decreased energy levels. Patient is not able to take care of basic needs by herself, [facility] evaluated the patient and placed her on a 5150 hold for gravely disabled. Assessment What has happened this shift: Patient was up at change of shift and in the hallway. Patient has been calm and no outbursts today. Patient refused her Inderal, her vital signs and her Depakote. RN advised patient that she needs to take her medication to be able to go home. But said she can go home anyway. But was not rude about refusing her medication. In [facility] today it was discussed that patient is conserved and cannot refuse medication. Patient was seen by the Hospitalist today. Patient sits in her room and sometimes in the hallway. Patient denies SI, hearing voices. S/I, H/I: Denies A/VH: Denies Sleep: Napped ADL's: needs prompting Group attendance: yes, partial Were meds taken: Yes, partial Any med S/E: None noted or observed Mental Status Exam Appearance: disheveled, wearing a wig Eye contact: direct Behavior: paranoid, Speech:clear Mood: calm but guarded Affect: constricted Thought process: delusional Thought Content: medications, staff, wanting to go home Cognition: alert Insight: impaired Judgment: impaired Interventions PRN's used:None Therapeutic interventions: 1:1 therapeutic assessment, maintained safe therapeutic milieu, provided active listening with positive reinforcement, provided medication administration/education/monitoring as needed; Q15 safety checks. Restraints/seclusion/emergency medication: None Justification of Continued Inpatient Treatment: Patient is gravely disabled and is unable to take care of basic needs. Continued therapeutic support and medication management needed to provide stabilization, prevent decompensation, improve coping mechanisms decreasing risk to patient and re-admittance
[2019-09-24] MEDS: lurasidone 60mg tablet PO SCH (17:43)
--- NOTE | 2019-09-24 20:00 | NUR ---
Pt refused vitals Addendum: 09/24/19 at 2257 by Silvia Brush RN Amended: Links added.
[2019-09-24] MEDS: oxybutynin 5mg tablet PO SCH (21:34)
--- NOTE | 2019-09-25 01:27 | NUR ---
Nursing Progress Note Legal hold: LPS Client on involuntary status for GD . Report received from ARPIT Rivera with use of SBAR Why are they here: 73 year old female with history of schizophrenia. [facility] Patient was brought from [facility] because she her health has been steadily declining over the past six weeks and clinician at this facility established that patient needed a higher level of care. Worsening paranoid delusions. Patient has lost weight, is not engaging in any activities outside of her home, is refusing to wash her clothing, or take showers. She becomes irritable when confronted about her hygiene. She has been having decreased energy levels. Patient is not able to take care of basic needs by herself, [facility] evaluated the patient and placed her on a 5150 hold for gravely disabled. Assessment What has happened this shift: Pt is sleeping her chair in her room. Pt remains in her room all of shift. Pt refused to have vitals taken, but was able to get a physical assessment. Erythema, edema and warmth noted on LE. Pt denies pain. Pt refused some of her medications, states 2mg of Cogentin is too much for her and threw on of the pills on the ground. Pt refused her beta janessa "I don't have high blood pressure." Pt misses her home the [facility] "they know what medications I need and springer I need them." "I am being discharged on Saturday." Pt is labile at first because pt didn't get her HS medications when she wanted. Pt later apologized "you know it doesn't feel good when your conserved it feels like you have no rights." Pt's conversation and thought process was linear. Pt remained in her chair for sleeping. S/I, H/I: None reported or observed A/VH: None reported or observed Sleep: Refer to Sleep Assessment ADL's: Needs prompting/resistive Group attendance: production supervisor off shift, no group Were meds taken: Pt refused Depakote and Inderal Any med S/E: None noted or observed Mental Status Exam Appearance: Disheveled, wearing a black wig that is not brushed or washed, lipstick all around her lips Eye contact: Direct Behavior: Agitated, paranoid Speech: Clear, spontaneous Mood: Labile Affect: Restricted Thought process: Linear Thought Content: Medications not correct, wanting to go home Cognition: A&O x3 Insight: Fair Judgment: Fair Interventions PRN's used: None Therapeutic interventions: 1:1 therapeutic assessment, maintained safe therapeutic milieu, provided active listening with positive reinforcement, provided medication administration/education/monitoring as needed; Q15 safety checks. Restraints/seclusion/emergency medication: None Justification of Continued Inpatient Treatment: Patient is gravely disabled and is unable to take care of basic needs. Continued therapeutic support and medication management needed to provide stabilization, prevent decompensation, improve coping mechanisms decreasing risk to patient and re-admittance
[2019-09-25 06:06] LABS: ALANINE AMINOTRANSFERASE 43 U/L (12-78); ALBUMIN 2.8 G/DL (3.4-5.0); ALBUMIN/GLOBULIN RATIO 0.8 (1.1-1.5); ALKALINE PHOSPHATASE 65 IU/L (46-116); ANION GAP 4 (8-16); ASPARTATE AMINO TRANSFERASE 27 U/L (10-37); BILIRUBIN,TOTAL 0.3 MG/DL (0.1-1.0); BLOOD UREA NITROGEN 18 MG/DL (7-18); BUN/CREATININE RATIO 27.7 (6.6-38.0); CALCIUM 8.5 MG/DL (8.5-10.1); CHLORIDE 100 MMOL/L (99-107); CREATININE 0.65 MG/DL (0.40-0.90); GLUCOSE 88 MG/DL (70-104); MAGNESIUM 1.9 MG/DL (1.5-2.4); PHOSPHORUS 4.2 MG/DL (2.3-4.5); POTASSIUM 4.2 MMOL/L (3.5-5.1); SODIUM 135 MMOL/L (135-145); TOTAL CARBON DIOXIDE 31.1 MMOL/L (24-32); TOTAL PROTEIN 6.3 G/DL (6.4-8.2); eGFR 89 ML/MIN
[2019-09-25 06:13] LABS: VALPROATE < 3.0 UG/ML (50-100)
[2019-09-25] MEDS: lurasidone 20mg tablet PO SCH (07:33)
--- NOTE | 2019-09-25 07:33 | NUR ---
DISCHARGE PLANNING Called [facility] office to inquire about Ct's ability to return to [facility]. They directed me to Madeline, flatbed owner operator of [facility]. Called Madeline (ph# [phone]) and she reported that she is not sure what the plan is and expressed concern about Ct's ability to maintain at the board and care level of care. She directed typewriter assembly and parts inspector to call Public Guardian, Syl. Called Syl (ph# [phone]) and left a message requesting a call back. Also, called and left a message with Deena (ph# [phone]) requesting a call back. DELMA Roldan
[2019-09-25] MEDS: benztropine 1mg tablet PO SCH ×2 (07:34→19:56)
[2019-09-25] MEDS: risperiDONE 2mg tablet PO SCH (07:35)
[2019-09-25] MEDS: propranolol 10mg tablet PO SCH ×3 (07:37→19:56)
[2019-09-25] MEDS: furosemide 20MG tablet PO SCH (07:39)
[2019-09-25] MEDS: divalproex sod 125mg sprinkle cap PO SCH ×2 (07:43→19:56)
[2019-09-25] MEDS: risperiDONE 0.25mg tablet PO SCH (08:00)
[2019-09-25] MEDS: nicotine 21mg patch - 24 hr TD SCH (08:00)
--- NOTE | 2019-09-25 11:07 | NUR ---
DISCHARGE PLANNING Spoke with Syl, Public Guardian (ph# [phone]), who reported Ct needs a higher level of care. She asked that we let her know when Ct is completely med compliant and then they will look for placement. She indicated there is a place in [facility] that may take Ct. DELMA Roldan
[2019-09-25] MEDS ORDERED: paliperidone palmitate 156 mg/ml inj.**IM only IM ONE (12:15)
--- NOTE | 2019-09-25 15:33 | NUR ---
Nursing Progress Note: [facility] Legal hold: LPS Client on involuntary status for GD Report received from ARPIT Arizmendi with use of SBAR Why are they here: 73 year old female with history of Schizophrenia. Lives at [facility], decompensated. Patient was brought from [facility] because she her health has been steadily declining over the past six weeks and clinician at this facility established that patient needed a higher level of care. Worsening paranoid delusions. Patient has lost weight, is not engaging in any activities outside of her home, is refusing to wash her clothing, or take showers. She becomes irritable when confronted about her hygiene. She has been having decreased energy levels. Patient is not able to take care of basic needs by herself, [facility] evaluated the patient and placed her on a 5150 hold for gravely disabled. Assessment What has happened this shift: Pt is sitting in day room during change of shift. Pt refused to have vitals taken and physical assessment performed. Pt denies pain. Pt requested to have her medications before breakfast. Pt was very particular with her medications and would only take partial doses of her medications. She refused Risperdal 0.25mg, Nicotine patch, Cogentin 1mg, Lasix 20mg, Propranolol 10mg, and Depakote 125mg. When consumer loan underwriter attempted to discern the reasoning for why she was unwilling to take said medications she reports, Thats too much Risperdal, I dont need the Nicotine patch, I dont have tremors so 1mg of Cogentin is working fine, I dont want to take any new medication [Lasix], I dont have high blood pressure so I dont need Propranolol, and I only take 250mg of Depakote and thats all I need. Pt is unable to be persuaded in any manner. Charge nurse Nicole notified. Conservator was contacted about the issue. Pt misses her home the [facility] and her routine there. Pt was confronted by this nurse, IVAN Rivera & HUE Diaz about her requirement to take all of her medications and the necessity to do so. She was very obstinate and verbally aggressive with all individuals and took all of her medications that she refused this AM. HUE Diaz reports that she will order injectable to ensure that pt is medicated appropriately. 156mg Invega Sustenna was administered in right deltoid. Pt was angry and irritable reporting, Im going to start calling you a downer you pig bitch! Shortly after injection pt got into a brief altercation with her roommate. After that pt was found isolating for the rest of the day. S/I, H/I: None reported or observed A/VH: None reported or observed Sleep: 8hrs NOC ADL's: Needs prompting/resistive Group attendance: Were meds taken: Pt refused multiple meds, see above Any med S/E: None noted or observed Mental Status Exam Appearance: Disheveled, wearing a black wig that is not brushed or washed, worn/old lipstick all around her lips Eye contact: Direct Behavior: Agitated, yelling, aggravated Speech: Clear, spontaneous Mood: Labile Affect: Restricted Thought process: Linear Thought Content: Medications not correct, wanting to go home Cognition: A&O x3 Insight: Fair Judgment: Fair Interventions PRN's used: None Therapeutic interventions: 1:1 therapeutic assessment, maintained safe therapeutic milieu, provided active listening with positive reinforcement, provided medication administration/education/monitoring as needed; Q15 safety checks. Restraints/seclusion/emergency medication: None Justification of Continued Inpatient Treatment: Patient is gravely disabled and is unable to take care of basic needs. Continued therapeutic support and medication management needed to provide stabilization, prevent decompensation, and improve coping mechanisms decreasing risk to patient and re-admittance. Pt started on Invega Sustenna 156mg on 09/25 since she has been routinely refusing PO medications.
[2019-09-25] MEDS: lurasidone 60mg tablet PO SCH (18:39)
[2019-09-25] MEDS: oxybutynin 5mg tablet PO SCH (19:56)
--- NOTE | 2019-09-25 23:03 | NUR ---
Pt refused vitals Addendum: 09/25/19 at 2305 by Silvia Brush RN Amended: Links added.
--- NOTE | 2019-09-26 00:30 | NUR ---
Nursing Progress Note Legal hold: LPS Client on involuntary status for GD . Report received from ARPIT Rivera with use of SBAR Why are they here: 73 year old female with history of schizophrenia. [facility] Patient was brought from [facility] because she her health has been steadily declining over the past six weeks and clinician at this facility established that patient needed a higher level of care. Worsening paranoid delusions. Patient has lost weight, is not engaging in any activities outside of her home, is refusing to wash her clothing, or take showers. She becomes irritable when confronted about her hygiene. She has been having decreased energy levels. Patient is not able to take care of basic needs by herself, [facility] evaluated the patient and placed her on a 5150 hold for gravely disabled. Assessment What has happened this shift: Pt again was observed sitting in the chair in her room. Pt is encouraged to get up and move around, pt states "leave me alone, I don't want to talk about it!" Pt refused her vitals, but did allow a quick assessment. Pt refused this racebook writer to listen to BM, "don't get close to me, you know I am !" Pt's LE are not as red as they were last night. Pt refused her AM Lasix. Pt at first refused her HS medications, but after explaining she was required to take her med, pt called this racebook writer "vinita bitch, now I am going to overdose", but took all her medications. Pt didn't want to here the risks and benefits of her med. This racebook writer attempted to perform a skin assessment and look under her wig - pt refused and shouted some profanities. Labs drawn on 09/25 indicated: PBNP 273, Albumin 2.8, Valproic Acid < 3.0. Pt isolated to her room the entire shift. S/I, H/I: None reported or observed A/VH: None reported or observed Sleep: Refer to Sleep Assessment ADL's: Needs prompting/resistive to care Group attendance: shift stacker, no group Were meds taken: Medication compliant, pt resistive at first. Any med S/E: None noted or observed Mental Status Exam Appearance: Disheveled, wearing a black wig that is not brushed or washed, lipstick all around her lips Eye contact: Direct Behavior: Agitated, paranoid, isolative Speech: Clear, spontaneous Mood: Labile Affect: Restricted Thought process: Circumstantial, still paranoid Thought Content: Medications not correct, wanting to go home Cognition: A&O x3 Insight: Fair Judgment: Fair Interventions PRN's used: None Therapeutic interventions: 1:1 therapeutic assessment, maintained safe therapeutic milieu, provided active listening with positive reinforcement, provided medication administration/education/monitoring as needed; Q15 safety checks. Restraints/seclusion/emergency medication: None Justification of Continued Inpatient Treatment: Patient is gravely disabled and is unable to take care of basic needs. Continued therapeutic support and medication management needed to provide stabilization, prevent decompensation, improve coping mechanisms decreasing risk to patient and re-admittance
[2019-09-26 07:00] VITALS: BP 182/112
[2019-09-26] MEDS: lurasidone 20mg tablet PO SCH (07:38)
[2019-09-26] MEDS: furosemide 20MG tablet PO SCH (07:38)
[2019-09-26] MEDS: propranolol 10mg tablet PO SCH ×3 (07:38→21:35)
[2019-09-26] MEDS: benztropine 1mg tablet PO SCH ×2 (07:38→21:35)
[2019-09-26] MEDS: divalproex sod 125mg sprinkle cap PO SCH ×2 (07:39→21:35)
[2019-09-26] MEDS: nicotine 21mg patch - 24 hr TD SCH (07:46)
[2019-09-26] MEDS ORDERED: cloNIDine 0.1 mg tablet PO ONE (13:50)
[2019-09-26] MEDS: lisinopril 20mg tablet PO SCH (14:06)
[2019-09-26 14:10] VITALS: BP 217/105
--- NOTE | 2019-09-26 15:23 | NUR ---
Nursing Progress Note: [facility] Legal hold: LPS Client on involuntary status for GD Report received from Sue Ayala RN with use of SBAR Why are they here: 73 year old female with history of Schizophrenia. Lives at [facility], decompensated. Patient was brought from [facility] because she her health has been steadily declining over the past six weeks and clinician at this facility established that patient needed a higher level of care. Worsening paranoid delusions. Patient has lost weight, is not engaging in any activities outside of her home, is refusing to wash her clothing, or take showers. She becomes irritable when confronted about her hygiene. She has been having decreased energy levels. Patient is not able to take care of basic needs by herself, [facility] evaluated the patient and placed her on a 5150 hold for gravely disabled. Assessment What has happened this shift: Pt is sleeping in the chair in her room at change of shift. Pt continues to be resistive to care and needed coaxing to take her medications this morning. Pt denies pain. Business Continuity Specialist was unable to perform a complete physical assessment on the pt. Pt was angry and irritable reporting, You need to leave me alone now! Pt received Invega Sustenna 156mg inj yesterday, she believes that staff is trying to overdose her. Pt isolates most of the day and does not talk with peers or staff without much persuasion. S/I, H/I: None reported or observed A/VH: None reported or observed Sleep: 8.75hrs NOC ADL's: Needs prompting/resistive Group attendance: no Were meds taken: Pt resistive but did take them with reminders that she is conserved. Any med S/E: None noted or observed Mental Status Exam Appearance: Disheveled, wearing a black wig that is not brushed or washed, worn/old lipstick all around her lips as well as worn eye liner Eye contact: stares at the ground Behavior: Agitated, guarded Speech: Clear, spontaneous Mood: Angry Affect: Restricted Thought process: Linear Thought Content: Feeling overdosed and wanting to go home to [facility] Cognition: A&O x3 Insight: poor Judgment: poor Interventions PRN's used: None Therapeutic interventions: 1:1 therapeutic assessment, maintained safe therapeutic milieu, provided active listening with positive reinforcement, provided medication administration/education/monitoring as needed; Q15 safety checks. Restraints/seclusion/emergency medication: None Justification of Continued Inpatient Treatment: Patient is gravely disabled and is unable to take care of basic needs. Continued therapeutic support and medication management needed to provide stabilization, prevent decompensation, and improve coping mechanisms decreasing risk to patient and re-admittance. Pt started on Invega Sustenna 156mg on 09/25 since she routinely refused PO medications. Addendum: 09/26/19 at 1535 by Shabnam Gee RN After lunch pts BP was 217/105, Pulse 68. Joe SWANN was notified, verbal order given for Clonidine & Lisinopril.
[2019-09-26 15:30] VITALS: BP 233/111
[2019-09-26] MEDS: cloNIDine 0.1 mg tablet PO SCH ×2 (16:58→21:35)
[2019-09-26] MEDS: lurasidone 60mg tablet PO SCH (17:47)
[2019-09-26 20:00] VITALS: BP 187/94
[2019-09-26] MEDS: oxybutynin 5mg tablet PO SCH (21:35)
--- NOTE | 2019-09-26 21:40 | NUR ---
BP: 187/94, HR 63
--- NOTE | 2019-09-27 00:44 | NUR ---
Nursing Progress Note: Legal hold: LPS Client on involuntary status for GD Report received from ARPIT Rodriguez with use of SBAR Why are they here: 73 year old female with history of Schizophrenia. Lives at [facility], decompensated. Patient was brought from [facility] because she her health has been steadily declining over the past six weeks and clinician at this facility established that patient needed a higher level of care. Worsening paranoid delusions. Patient has lost weight, is not engaging in any activities outside of her home, is refusing to wash her clothing, or take showers. She becomes irritable when confronted about her hygiene. She has been having decreased energy levels. Patient is not able to take care of basic needs by herself, [facility] evaluated the patient and placed her on a 5150 hold for gravely disabled. Assessment What has happened this shift: Pt sitting in room chair at change of shift. Pt continues to be resistive to care; pt refused vitals from tech at beginning of shift, and physical assessment from this RN. Pt became very irritable when asked mental health/ADL related questions, stating, "I do what I need to do! I'm fine. Leave me alone." Pt isolated to room the entire shift; this RN asked another RN to attempt BP and HR reading --Pt receptive to this assessment from RN peer. This RN had RN peer administer all HS medications successfully. This RN pulled, scanned, and reviewed all medications with RN peer prior to administration. Pt then used the restroom and went to sleep. S/I, H/I: None reported nor observed A/VH: None reported nor observed Sleep: See Sleep Assessment ADL's: Needs prompting/resistive Group attendance: N/A Were meds taken: Pt resistive with this RN, but compliant with RN peer Any med S/E: None reported nor observed Mental Status Exam Appearance: Disheveled, wearing a black, dreaded wig that is not brushed or washed, gaudy makeup of lipstick and eyeliner Eye contact: Intermittent Behavior: Agitated, guarded Speech: Clear Mood: Irritable Affect: Blunted Thought process: Unable to assess Thought Content: Not wanting care Cognition: Impaired Insight: Poor Judgment: Poor Interventions PRN's used: None Therapeutic interventions: 1:1 attempted therapeutic assessment, maintained safe therapeutic milieu, obtained BP and HR, provided medication administration/education/monitoring as needed; Q15 safety checks. Restraints/seclusion/emergency medication: None Justification of Continued Inpatient Treatment: Patient is gravely disabled and is unable to take care of basic needs. Continued therapeutic support and medication management needed to provide stabilization, prevent decompensation, and improve coping mechanisms decreasing risk to patient and re-admittance. Pt started on Invega Sustenna 156mg on 09/25 since she routinely refused PO medications; pt is unable to return to former housing; awaiting placement.
[2019-09-27 07:00] VITALS: BP 214/103
[2019-09-27] MEDS: cloNIDine 0.1 mg tablet PO SCH ×2 (07:20→20:22)
[2019-09-27] MEDS: benztropine 1mg tablet PO SCH ×2 (07:20→20:21)
[2019-09-27] MEDS: propranolol 10mg tablet PO SCH ×3 (07:20→20:21)
[2019-09-27] MEDS: lurasidone 20mg tablet PO SCH (07:21)
[2019-09-27] MEDS: furosemide 20MG tablet PO SCH (07:21)
[2019-09-27] MEDS: divalproex sod 125mg sprinkle cap PO SCH ×2 (07:22→20:21)
[2019-09-27] MEDS: nicotine 21mg patch - 24 hr TD SCH (07:26)
[2019-09-27] MEDS: lisinopril 20mg tablet PO SCH (08:01)
[2019-09-27] MEDS ORDERED: hyDRALAzine 10mg tablet PO PRN (08:10)
[2019-09-27] MEDS ORDERED: amLODIPine 5mg tablet PO ONE (08:10)
[2019-09-27 09:58] VITALS: BP 186/119
--- NOTE | 2019-09-27 10:02 | NUR ---
Nursing Progress Note: [facility] Legal hold: LPS Client on involuntary status for GD Report received from Sue Ayala RN with use of SBAR Why are they here: 73 year old female with history of Schizophrenia. Lives at [facility], decompensated. Patient was brought from [facility] because she her health has been steadily declining over the past six weeks and clinician at this facility established that patient needed a higher level of care. Worsening paranoid delusions. Patient has lost weight, is not engaging in any activities outside of her home, is refusing to wash her clothing, or take showers. She becomes irritable when confronted about her hygiene. She has been having decreased energy levels. Patient is not able to take care of basic needs by herself, [facility] evaluated the patient and placed her on a 5150 hold for gravely disabled. Assessment What has happened this shift: Pt sleeping in room chair at change of shift. She is guarded and somewhat resistive to care initally but took all of her medications when offered. She continues to have high BP (214/103) despite lisinopril and clonidine. Hospitalist notified and verbal orders for Norvasc & Hydralazine given. VS were taken again at 1000 and lowered to BP 186/119, P 74. Pt is irascible in nature and easily annoyed by writers requests and questions. She did take all of her medications offered when told that they were court ordered. S/I, H/I: None reported nor observed A/VH: None reported nor observed Sleep: 9hrs NOC ADL's: Needs prompting/resistive, has not showered since he's been here Group attendance: No Were meds taken: Pt intially resistive but did take her medications after prompting Any med S/E: None reported nor observed Mental Status Exam Appearance: Disheveled, wearing a black, dreaded wig that is not brushed or washed, smeared makeup (lipstick and eyeliner) Eye contact: Intermittent Behavior: Agitated, guarded Speech: Clear Mood: Irritable Affect: Blunted Thought process: Unable to assess Thought Content: annoyed Cognition: Impaired Insight: Poor Judgment: Poor Interventions PRN's used: Hydralazine X1 Therapeutic interventions: 1:1 attempted therapeutic assessment, maintained safe therapeutic milieu, obtained BP and HR, provided medication administration/education/monitoring as needed; Q15 safety checks. Restraints/seclusion/emergency medication: None Justification of Continued Inpatient Treatment: Patient is gravely disabled and is unable to take care of basic needs. Continued therapeutic support and medication management needed to provide stabilization, prevent decompensation, and improve coping mechanisms decreasing risk to patient and re-admittance. Pt started on Invega Sustenna 156mg on 09/25 since she routinely refused PO medications; pt is unable to return to former housing; awaiting placement. Addendum: 09/27/19 at 1800 by Enma Fish RN Amend: Pt was cooperative with medication administration. She requested that her Latuda be given to her in her room before she went to the group room for dinner. She willingly took her medications. Will continue to monitor.
--- NOTE | 2019-09-27 10:07 | NUR ---
reassessment: Pt PO 100% avg meals meeting needs. LBM 09/24. No nutrition concerns at this time. Will continue to monitor. Rec: 1. continue regular diet 2. bowel care as needed 3. wt per rx Addendum: 09/27/19 at [address] Amended: Links added.
--- NOTE | 2019-09-27 13:37 | NUR ---
Nursing Note: Pt's BP taken on R calf, pt supine, leg at the level of the heart, and laying still for 5 minutes before BP assessed. Pt's BP 127/64 and HR 72. Of note, NA reports calf blood pressures have been taken with patient sitting in chair with calf in a dependent position, which have possibly led to higher blood pressure readings. Will continue to monitor.
[2019-09-27 13:44] VITALS: BP 127/64
[2019-09-27] MEDS: lurasidone 60mg tablet PO SCH (17:39)
[2019-09-27 20:00] VITALS: BP 115/58
[2019-09-27] MEDS: oxybutynin 5mg tablet PO SCH (20:21)
--- NOTE | 2019-09-28 00:03 | NUR ---
Nursing Progress Note Legal hold: LPS Client on involuntary status for GD Report received from Kaylene Campos RN with use of SBAR Why are they here: 73 year old female with history of Schizophrenia. [facility]. [facility] was brought from [facility] because she her health has been steadily declining over the past six weeks and clinician at this facility established that patient needed a higher level of care. Worsening paranoid delusions. Patient has lost weight, is not engaging in any activities outside of her home, is refusing to wash her clothing, or take showers. She becomes irritable when confronted about her hygiene. She has been having decreased energy levels. Patient is not able to take care of basic needs by herself, [facility] evaluated the patient and placed her on a 5150 hold for gravely disabled. Assessment What has happened this shift: Pt was sitting in her chair at shift change. Pt was much more cooperative then a couple of nights ago. Pt states if I continue to do what I am told I will be discharged soon. Pt held a calm conversation with this underwriter solicitation director. Pt is feeling sad because she wants to go home (back to [facility]). Pts vitals were taken and BP was taken on left leg, pt in supine position 115/58. Observed bilateral hands shaking when taking medications this happens when I get nervous, pt couldnt tell underwriter solicitation director why she was nervous. Was able to assess skin under pts wig no skin breakdown was noted. Pt on Lasix 20mg unable to assess pts output, pt is wearing depends and wasnt sure how many she goes through. Will endorse to day shift springer she is awake. Pt took HS med then went back to sleep. S/I, H/I: None reported nor observed A/VH: None reported nor observed Sleep: Refer to Sleep Assessment ADL's: Needs prompting/resistive to care Group attendance: cover remover, no group Were meds taken: Medication compliant Any med S/E: Bilateral hand shaking. Pt states it just happens when I am nervous Mental Status Exam Appearance: Disheveled, wearing a black, dreaded wig that is not brushed or washed, smeared makeup (lipstick and eyeliner) Eye contact: Intermittent Behavior: Cooperative, guarded, sad Speech: A little mumbled, normal rate and rhythm Mood: Irritable, but better Affect: Blunted Thought process: Circumstantial Thought Content: Pt wants to go back to [facility] Cognition: Impaired Insight: Poor Judgment: Poor Interventions PRN's used: None Therapeutic interventions: 1:1 attempted therapeutic assessment, maintained safe therapeutic milieu, obtained BP and HR, provided medication administration/education/monitoring as needed; Q15 safety checks. Restraints/seclusion/emergency medication: None Justification of Continued Inpatient Treatment: Patient is gravely disabled and is unable to take care of basic needs. Continued therapeutic support and medication management needed to provide stabilization, prevent decompensation, and improve coping mechanisms decreasing risk to patient and re-admittance. Pt started on Invega Sustenna 156mg on 09/25 since she routinely refused PO medications; pt is unable to return to former housing; awaiting placement.
[2019-09-28 07:43] VITALS: BP 120/98
[2019-09-28] MEDS: nicotine 21mg patch - 24 hr TD SCH (08:00)
[2019-09-28] MEDS: propranolol 10mg tablet PO SCH ×3 (08:00→20:39)
[2019-09-28] MEDS ORDERED: amLODIPine 5mg tablet PO SCH (08:00)
[2019-09-28] MEDS: cloNIDine 0.1 mg tablet PO SCH ×2 (08:07→20:39)
[2019-09-28] MEDS: lurasidone 20mg tablet PO SCH (08:07)
[2019-09-28] MEDS: benztropine 1mg tablet PO SCH ×2 (08:08→20:39)
[2019-09-28] MEDS: lisinopril 20mg tablet PO SCH (08:08)
[2019-09-28] MEDS: divalproex sod 125mg sprinkle cap PO SCH ×2 (08:08→20:38)
[2019-09-28] MEDS: furosemide 20MG tablet PO SCH (08:09)
--- NOTE | 2019-09-28 11:08 | NUR ---
DISCHARGE PLANNING Spoke to Adriane Mahoney's Public Guardian (ph# [phone]) to inform her that Ct is completely medication compliant, is showering, and eating. She reported she needs to check in with mental health to find out what the plan is. Informed her that poem writer was informed that Ct is not able to return to [facility]. Maru reported she will call poem writer back. DELMA Roldan
[2019-09-28] MEDS: lurasidone 60mg tablet PO SCH (17:15)
--- NOTE | 2019-09-28 17:29 | NUR ---
Nursing Progress Note: [facility] Legal hold: LPS Client on involuntary status for GD Report received from ARPIT Rey with use of SBAR Why are they here: 73 year old female with history of Schizophrenia. Lives at [facility], decompensated. Patient was brought from [facility] because she her health has been steadily declining over the past six weeks and clinician at this facility established that patient needed a higher level of care. Worsening paranoid delusions. Patient has lost weight, is not engaging in any activities outside of her home, is refusing to wash her clothing, or take showers. She becomes irritable when confronted about her hygiene. She has been having decreased energy levels. Patient is not able to take care of basic needs by herself, [facility] evaluated the patient and placed her on a 5150 hold for gravely disabled. Assessment What has happened this shift: Patient was asleep at change of shift and up for breakfast. Patient is pleasant and then becaume bossy and then apologized for being bossy. Patient denies suicidal ideation. Patient is mostly med compliant. Patient is on a lot of meds for HTN and was taken off one of them today. Patient has a little increase in her bilateral edema and Shira stated the Ca++ channel janessa might be to blame. Patient does nto elevate her feet during the day. Patient did take a shower today and took her wig off for her shower. Her scalp is intact. Patient might not be able to go back to [facility]. Cad Design Engineer is going to ask if they can come evaluate her because patient is doing really well. Patient wants to go back to [facility]. S/I, H/I: None A/VH: None Sleep: cat naps in chair ADL's: Needs prompting Group attendance: No Were meds taken: Most Any med S/E: None reported nor observed Mental Status Exam Appearance: Disheveled, wearing a black, dreaded wig that is not brushed or washed, smeared makeup (lipstick and eyeliner) Eye contact: Intermittent Behavior: slightly agitated but mostly pleasant Speech: Clear Mood: pleasant Affect: Blunted Thought process: Unable to assess Thought Content: patient believes she takes too many meds Cognition: Impaired Insight: Poor Judgment: Poor Interventions PRN's used: none Therapeutic interventions: 1:1 attempted therapeutic assessment, maintained safe therapeutic milieu, obtained BP and HR, provided medication administration/education/monitoring as needed; Q15 safety checks. Restraints/seclusion/emergency medication: None Justification of Continued Inpatient Treatment: Patient is gravely disabled and is unable to take care of basic needs. Continued therapeutic support and medication management needed to provide stabilization, prevent decompensation, and improve coping mechanisms decreasing risk to patient and re-admittance. Pt started on Invega Sustenna 156mg on 09/25 since she routinely refused PO medications; pt is unable to return to former housing; awaiting placement.
[2019-09-28 20:13] VITALS: BP 122/75
[2019-09-28] MEDS: oxybutynin 5mg tablet PO SCH (20:38)
[2019-09-28 20:42] VITALS: BP 125/63
--- NOTE | 2019-09-28 22:25 | NUR ---
adriane Progress Note Legal hold: LPS Client on involuntary status for GD Report received from ARPIT Joy with use of SBAR Why are they here: 73 year old female with history of Schizophrenia. [facility] Patient was brought from [facility] because she her health has been steadily declining over the past six weeks and clinician at this facility established that patient needed a higher level of care. Worsening paranoid delusions. Patient has lost weight, is not engaging in any activities outside of her home, is refusing to wash her clothing, or take showers. She becomes irritable when confronted about her hygiene. She has been having decreased energy levels. Patient is not able to take care of basic needs by herself, [facility] evaluated the patient and placed her on a 5150 hold for gravely disabled. Assessment What has happened this shift: Pt is observed sitting in bedroom at shift change. Pt is encouraged to lie in bad to elevated her legs. Pt refuses. Pt's initial BP was 175/75, but when retaken an hour later was 125/63. Pt adamantly refuses to have BP taken on left calf as ordered. Pt got agitated when the 2nd BP was taken "they don't take my blood pressure two times at night, don't you know that!" Pt was medication compliant. Pt was up to group room for HS snack and remained there for and hour. Pt did apologize to this freelance writer "sorry for yelling at you." Pt states she is unable to lie in bed because it "makes me wet the bed." Again encouraged pt to elevate legs, "I don't have high blood pressure, I never did at [facility]." S/I, H/I: None reported nor observed A/VH: None reported nor observed Sleep: Refer to Sleep Assessment ADL's: Needs prompting/resistive to care Group attendance: neurophysiologist, no group Were meds taken: Medication compliant Any med S/E: Bilateral hand tremors. Pt taking 2mg Cogentin BID Mental Status Exam Appearance: Disheveled, wearing a black, dreaded wig that is not brushed or washed, smeared makeup (lipstick and eyeliner) Eye contact: Intermittent Behavior: Irritable Speech: A little mumbled, normal rate and rhythm Mood: Irritable, but better Affect: Constricted Thought process: Circumstantial/Tangential Thought Content: Taking blood pressure to many times. Doesn't believe she has high blood pressure Cognition: Impaired Insight: Poor Judgment: Poor Interventions PRN's used: None Therapeutic interventions: 1:1 attempted therapeutic assessment, maintained safe therapeutic milieu, obtained BP and HR, provided medication administration/education/monitoring as needed; Q15 safety checks. Restraints/seclusion/emergency medication: None Justification of Continued Inpatient Treatment: Patient is gravely disabled and is unable to take care of basic needs. Continued therapeutic support and medication management needed to provide stabilization, prevent decompensation, and improve coping mechanisms decreasing risk to patient and re-admittance. Pt started on Invega Sustenna 156mg on 09/25 since she routinely refused PO medications; pt is unable to return to former housing; awaiting placement.
[2019-09-29 08:00] VITALS: BP 120/98
[2019-09-29] MEDS: nicotine 21mg patch - 24 hr TD SCH (08:00)
[2019-09-29] MEDS: lurasidone 20mg tablet PO SCH (08:03)
[2019-09-29] MEDS: benztropine 1mg tablet PO SCH ×2 (08:03→20:06)
[2019-09-29] MEDS: propranolol 10mg tablet PO SCH ×4 (08:03→20:06)
[2019-09-29] MEDS: furosemide 20MG tablet PO SCH (08:03)
[2019-09-29] MEDS: cloNIDine 0.1 mg tablet PO SCH ×2 (08:04→20:06)
[2019-09-29] MEDS: lisinopril 20mg tablet PO SCH (08:25)
[2019-09-29] MEDS: divalproex sod 125mg sprinkle cap PO SCH ×2 (08:26→20:06)
--- NOTE | 2019-09-29 16:18 | NUR ---
Nursing Progress Note: [facility] Legal hold: LPS Client on involuntary status for GD Report received from IVAN Nash with use of SBAR Why are they here: 73 year old female with history of Schizophrenia. Lives at [facility], decompensated. Patient was brought from [facility] because she her health has been steadily declining over the past six weeks and clinician at this facility established that patient needed a higher level of care. Worsening paranoid delusions. Patient has lost weight, is not engaging in any activities outside of her home, is refusing to wash her clothing, or take showers. She becomes irritable when confronted about her hygiene. She has been having decreased energy levels. Patient is not able to take care of basic needs by herself, [facility] evaluated the patient and placed her on a 5150 hold for gravely disabled. Assessment What has happened this shift: Patient sleeping at change of shift and up before breakfast. Patient was pleasant and took all her medication today. Patient napped in her chair during morning group. Patient was pleasant for most of the morning. Patient played a ring toss game in the hallway with other patients. The patient's cheered for her when she threw the ring and made it. She smiled and gave RN a very soft high 5. Later in the afternoon Patient told RN that she is taking the medication here because she has too, "but when I go back to [facility] I'm only taking the 4 medications that I took there." RN explained to patient that she is doing real well here and [facility] will want her to take the medication like she is taking here. Patient got angry at RN and said "that's not true! I don't know what is wrong with you but the other nurses are not like you." RN left patient alone. Patient took a shower today without prompting. S/I, H/I: None A/VH: None Sleep: cat naps in chair ADL's: No prompting meeting today Group attendance: No Were meds taken: Yes Any med S/E: None reported Mental Status Exam Appearance: Disheveled, wearing a black, dreaded wig that is not brushed or washed, smeared makeup (lipstick and eyeliner) Eye contact: Intermittent Behavior: slightly agitated but mostly pleasant Speech: Clear Mood: pleasant, labile Affect: Flat Thought process: Unable to assess Thought Content: patient believes she takes too many meds Cognition: Impaired Insight: Poor Judgment: Poor Interventions PRN's used: none Therapeutic interventions: 1:1 attempted therapeutic assessment, maintained safe therapeutic milieu, obtained BP and HR, provided medication administration/education/monitoring as needed; Q15 safety checks. Restraints/seclusion/emergency medication: None Justification of Continued Inpatient Treatment: Patient is gravely disabled and is unable to take care of basic needs. Continued therapeutic support and medication management needed to provide stabilization, prevent decompensation, and improve coping mechanisms decreasing risk to patient and re-admittance. Pt started on Invega Sustenna 156mg on 09/25 since she routinely refused PO medications; pt is unable to return to former housing; awaiting placement.
[2019-09-29] MEDS: lurasidone 60mg tablet PO SCH (17:45)
[2019-09-29] MEDS: oxybutynin 5mg tablet PO SCH (20:06)
--- NOTE | 2019-09-29 20:16 | NUR ---
Pt adamantly refused blood pressure.
--- NOTE | 2019-09-29 22:10 | NUR ---
Nursing Progress Note Legal hold: LPS Client on involuntary status for GD Report received from ARPIT Rivera with use of SBAR Why are they here: 73 year old female with history of Schizophrenia. [facility] Patient was brought from [facility] because she her health has been steadily declining over the past six weeks and clinician at this facility established that patient needed a higher level of care. Worsening paranoid delusions. Patient has lost weight, is not engaging in any activities outside of her home, is refusing to wash her clothing, or take showers. She becomes irritable when confronted about her hygiene. She has been having decreased energy levels. Patient is not able to take care of basic needs by herself, [facility] evaluated the patient and placed her on a 5150 hold for gravely disabled. Assessment What has happened this shift: Pt was observed lying on her bed with eyes open at shift change. Pt didn't respond when this television script writer engaged in conversation. Pt later was up to observation room asking for her night time meds. Pt refused her vitals "You are not taking my blood pressure, they never take my blood pressure at night!!" Was able to get HR, O2 at med pass. Pt still refused blood pressure. Pt was very agiated "you don't know what your doing!" Pt was compliant with medication and 1:1 assessment. S/I, H/I: None reported nor observed A/VH: None reported nor observed Sleep: Refer to Sleep Assessment ADL's: Needs prompting/resistive to care Group attendance: material handler 2nd shift, no group Were meds taken: Medication compliant Any med S/E: Bilateral hand tremors. Pt taking 2mg Cogentin BID Mental Status Exam Appearance: Disheveled, wearing a black, dreaded wig that is not brushed or washed, smeared makeup (lipstick and eyeliner) Eye contact: Intermittent Behavior: Irritable, agitated, resistive to care Speech: A little mumbled, normal rate and rhythm Mood: Irritable Affect: Constricted Thought process: Circumstantial/Tangential Thought Content: Taking blood pressure to many times. Doesn't believe she has high blood pressure Cognition: Impaired Insight: Poor Judgment: Poor Interventions PRN's used: None Therapeutic interventions: 1:1 attempted therapeutic assessment, maintained safe therapeutic milieu, obtained BP and HR, provided medication administration/education/monitoring as needed; Q15 safety checks. Restraints/seclusion/emergency medication: None Justification of Continued Inpatient Treatment: Patient is gravely disabled and is unable to take care of basic needs. Continued therapeutic support and medication management needed to provide stabilization, prevent decompensation, and improve coping mechanisms decreasing risk to patient and re-admittance. Pt started on Invega Sustenna 156mg on 09/25 since she routinely refused PO medications; pt is unable to return to former housing; awaiting placement. Addendum: 09/29/19 at 2320 by Silvia Brush RN Observed pt sleeping in her bed. Pt's norm is sleeping upright in her chair.
[2019-09-30 07:33] VITALS: BP 118/64
[2019-09-30] MEDS: propranolol 10mg tablet PO SCH ×3 (07:40→20:41)
[2019-09-30] MEDS: lurasidone 20mg tablet PO SCH (07:40)
[2019-09-30] MEDS: divalproex sod 125mg sprinkle cap PO SCH ×2 (07:40→20:43)
[2019-09-30] MEDS: furosemide 20MG tablet PO SCH (07:40)
[2019-09-30] MEDS: cloNIDine 0.1 mg tablet PO SCH ×2 (07:40→20:40)
[2019-09-30] MEDS: lisinopril 20mg tablet PO SCH (07:40)
[2019-09-30] MEDS: benztropine 1mg tablet PO SCH ×2 (07:41→20:40)
[2019-09-30] MEDS: nicotine 21mg patch - 24 hr TD SCH (07:45)
--- NOTE | 2019-09-30 16:06 | NUR ---
Nursing Progress Note: [facility] Legal hold: LPS Client on involuntary status for GD Report received from IVAN Nash with use of SBAR Why are they here: 73 year old female with history of Schizophrenia. Lives at [facility], decompensated. Patient was brought from [facility] because she her health has been steadily declining over the past six weeks and clinician at this facility established that patient needed a higher level of care. Worsening paranoid delusions. Patient has lost weight, is not engaging in any activities outside of her home, is refusing to wash her clothing, or take showers. She becomes irritable when confronted about her hygiene. She has been having decreased energy levels. Patient is not able to take care of basic needs by herself, [facility] evaluated the patient and placed her on a 5150 hold for gravely disabled. Assessment What has happened this shift: Pt was observed lying on her bed with eyes closed at shift change. Pt was compliant with medication and 1:1 assessment at bedside. She spoke lovingly of [facility] and her time spent there. She denies any SE's to medications. Pt has tremors of hands and right foot, MD aware. She has smeared makeup on her face and her bedside table has multiple used cup on it. Pt prefers to not throw things away. Pt was offered her 1300 propranolol and was resistive to taking it but did so with minimal education of the medication. *Pts BP should be taken on the calf with pt laying supine and cuff should be at the level of the heart* S/I, H/I: None reported nor observed A/VH: None reported nor observed Sleep: 9.25hrs NOC ADL's: Needs prompting/resistive to care, unknown last shower Group attendance: yes Were meds taken: Medication compliant Any med S/E: Bilateral hand tremors & right foot. Pt taking 2mg Cogentin BID Mental Status Exam Appearance: Disheveled, wearing a black, dreaded wig that is not brushed or washed, smeared makeup (lipstick and eyeliner) Eye contact: Intermittent Behavior: Irritable, resistive to care Speech: Soft, normal rate and rhythm Mood: Irritable Affect: Constricted Thought process: Circumstantial/Tangential Thought Content: Pt doesnt believe she has HTN, questions medications Cognition: Impaired Insight: Poor Judgment: Poor Interventions PRN's used: None Therapeutic interventions: 1:1 attempted therapeutic assessment, maintained safe therapeutic milieu, obtained BP and HR, provided medication administration/education/monitoring as needed; Q15 safety checks. Restraints/seclusion/emergency medication: None Justification of Continued Inpatient Treatment: Patient is gravely disabled and is unable to take care of basic needs. Continued therapeutic support and medication management needed to provide stabilization, prevent decompensation, and improve coping mechanisms decreasing risk to patient and re-admittance. Pt started on Invega Sustenna 156mg on 09/25 since she routinely refused PO medications; pt is unable to return to former housing; awaiting placement.
[2019-09-30] MEDS: lurasidone 60mg tablet PO SCH (17:32)
[2019-09-30] MEDS: oxybutynin 5mg tablet PO SCH (20:41)
--- NOTE | 2019-10-01 02:05 | NUR ---
Nursing Progress Note Legal hold: LPS Client on involuntary status for GD Report received from Nicole MUNSON with use of SBAR Why are they here: 73 year old female with history of Schizophrenia. [facility] Patient was brought from [facility] because she her health has been steadily declining over the past six weeks and clinician at this facility established that patient needed a higher level of care. Worsening paranoid delusions. Patient has lost weight, is not engaging in any activities outside of her home, is refusing to wash her clothing, or take showers. She becomes irritable when confronted about her hygiene. She has been having decreased energy levels. Patient is not able to take care of basic needs by herself, [facility] evaluated the patient and placed her on a 5150 hold for gravely disabled. Assessment What has happened this shift: Pt is observed walking in the smith at change of shift. She approaches technical publications writer smiling and very pleasant. She has lipstick smeared on and around her lips and eyeliner caked around her eyes. She happily tells technical publications writer she showered today and she has been showing "everyday now" so that she can get back to [facility]. She says, "I go to all my groups and participate." She is medication compliant. S/I, H/I: None reported nor observed A/VH: None reported nor observed Sleep: Refer to Sleep Assessment ADL's: Needs prompting/resistive to care Group attendance: road grader operator, no group Were meds taken: Medication compliant Any med S/E: Bilateral hand tremors. Pt taking 2mg Cogentin BID Mental Status Exam Appearance: Disheveled,stated she showered today Eye contact: Intermittent Behavior: pleasant, cooperative Speech: A little mumbled, normal rate and rhythm Mood: happy Affect: Constricted Thought process: Circumstantial/Tangential Thought Content: Taking blood pressure to many times. Doesn't believe she has high blood pressure Cognition: Impaired Insight: Poor Judgment: Poor Interventions PRN's used: None Therapeutic interventions: 1:1 attempted therapeutic assessment, maintained safe therapeutic milieu, obtained BP and HR, provided medication administration/education/monitoring as needed; Q15 safety checks. Restraints/seclusion/emergency medication: None Justification of Continued Inpatient Treatment: Patient is gravely disabled and is unable to take care of basic needs. Continued therapeutic support and medication management needed to provide stabilization, prevent decompensation, and improve coping mechanisms decreasing risk to patient and re-admittance. Pt started on Invega Sustenna 156mg on 09/25 since she routinely refused PO medications; pt is unable to return to former housing; awaiting placement.
[2019-10-01] MEDS: propranolol 10mg tablet PO SCH ×3 (07:42→20:11)
[2019-10-01] MEDS: furosemide 20MG tablet PO SCH (07:42)
[2019-10-01] MEDS: cloNIDine 0.1 mg tablet PO SCH ×2 (07:42→20:11)
[2019-10-01] MEDS: divalproex sod 125mg sprinkle cap PO SCH ×2 (07:42→20:11)
[2019-10-01] MEDS: lisinopril 20mg tablet PO SCH (07:43)
[2019-10-01] MEDS: benztropine 1mg tablet PO SCH ×2 (07:43→20:12)
[2019-10-01] MEDS: lurasidone 20mg tablet PO SCH (07:44)
[2019-10-01 08:00] VITALS: BP 147/65
[2019-10-01] MEDS: nicotine 21mg patch - 24 hr TD SCH (08:00)
--- NOTE | 2019-10-01 16:36 | NUR ---
Nursing Progress Note Legal hold: LPS Client on involuntary status for GD Report received from Charity MUNSON with use of SBAR Why are they here: 73 year old female with history of Schizophrenia. [facility]. [facility] was brought from [facility] because she her health has been steadily declining over the past six weeks and clinician at this facility established that patient needed a higher level of care. Worsening paranoid delusions. Patient has lost weight, is not engaging in any activities outside of her home, is refusing to wash her clothing, or take showers. She becomes irritable when confronted about her hygiene. She has been having decreased energy levels. Patient is not able to take care of basic needs by herself, [facility] evaluated the patient and placed her on a 5150 hold for gravely disabled. Assessment What has happened this shift: Pt is observed sleeping at change of shift. When she wakes she approaches RN and kindly asks for her medications. She states I would like to have my medications and can you bring them to my room? She takes all of her meds without issue and states that she plans to join others in the group room for breakfast. Patient attends all groups and meals. Her demeanor remains pleasant throughout the day. She talks about going home and states that she feels a lot better and cant wait to discharge. S/I, H/I: None reported nor observed A/VH: None reported nor observed Sleep: 8hrs NOC ADL's: Needs prompting Group attendance: yes Were meds taken: yes Any med S/E: Bilateral hand tremors. Pt taking 2mg Cogentin BID Mental Status Exam Appearance: base line, heavy smeared make-up Eye contact: direct Behavior: pleasant, cooperative Speech: soft tone, normal rate and rhythm Mood: happy Affect: restricted Thought process: linear Thought Content: focused on going home Cognition: A/O x3 Insight: fair to good Judgment: fair to good Interventions PRN's used: None Therapeutic interventions: 1:1 attempted therapeutic assessment, maintained safe therapeutic milieu, obtained BP and HR, provided medication administration/education/monitoring as needed; Q15 safety checks. Restraints/seclusion/emergency medication: None Justification of Continued Inpatient Treatment: Patient is gravely disabled and is unable to take care of basic needs. Continued therapeutic support and medication management needed to provide stabilization, prevent decompensation, and improve coping mechanisms decreasing risk to patient and re-admittance. Pt started on Invega Sustenna 156mg on 09/25 since she routinely refused PO medications; pt is unable to return to former housing; awaiting placement.
[2019-10-01] MEDS: lurasidone 60mg tablet PO SCH (17:27)
[2019-10-01 19:47] VITALS: BP 152/80
[2019-10-01] MEDS: oxybutynin 5mg tablet PO SCH (20:12)
--- NOTE | 2019-10-02 03:43 | NUR ---
Nursing Progress Note Legal hold: LPS Client on involuntary status for GD Report received from Nicole MUNSON with use of SBAR Why are they here: 73 year old female with history of Schizophrenia. Lives at [facility], decompensated. Patient was brought from [facility] because she her health has been steadily declining over the past six weeks and clinician at this facility established that patient needed a higher level of care. Worsening paranoid delusions. Patient has lost weight, is not engaging in any activities outside of her home, is refusing to wash her clothing, or take showers. She becomes irritable when confronted about her hygiene. She has been having decreased energy levels. Patient is not able to take care of basic needs by herself, [facility] evaluated the patient and placed her on a 5150 hold for gravely disabled. Assessment What has happened this shift: Patient observed sitting her bedside chair looking at a magazine appropriate to the unit. Patient is pleasant and cooperative with all care. Compliant with all medication. Patient denies SI, HI, A/VH and stating "I'm doing much better since being here, you guys've taken such good care of me." She's smiling and engaging in conversation. Voiced enthusiasm r/t not wetting the bed when she laid down on the previous shift. Patient explained while living at [facility] she has difficulty wetting the bed when she lays down for bed so she sleeps "in a big comfy chair." Patient went to group room for HS snack and went back to her room shortly after and observed sleeping in her bed. S/I, H/I: Denies A/VH: Denies Sleep: Refer to sleep assessment ADL's: Needs prompting Group attendance: No groups this shift Were meds taken: yes Any med S/E: Bilateral hand tremors. Pt taking 2mg Cogentin BID Mental Status Exam Appearance: base line, heavy smeared make-up, dreaded wig Eye contact: direct Behavior: pleasant, cooperative Speech: soft tone, normal rate and rhythm Mood: happy Affect: bright Thought process: linear Thought Content: focused on going home Cognition: A/O x3 Insight: fair to good Judgment: fair to good Interventions PRN's used: None Therapeutic interventions: 1:1 attempted therapeutic assessment, maintained safe therapeutic milieu, obtained BP and HR, provided medication administration/education/monitoring as needed; Q15 safety checks. Restraints/seclusion/emergency medication: None Justification of Continued Inpatient Treatment: Patient is gravely disabled and is unable to take care of basic needs. Continued therapeutic support and medication management needed to provide stabilization, prevent decompensation, and improve coping mechanisms decreasing risk to patient and re-admittance. Pt started on Invega Sustenna 156mg on 09/25 since she routinely refused PO medications; pt is unable to return to former housing; awaiting placement.
[2019-10-02] MEDS: benztropine 1mg tablet PO SCH ×2 (07:27→20:15)
[2019-10-02] MEDS: lurasidone 20mg tablet PO SCH (07:28)
[2019-10-02] MEDS: furosemide 20MG tablet PO SCH (07:28)
[2019-10-02] MEDS: propranolol 10mg tablet PO SCH ×3 (07:28→20:15)
[2019-10-02] MEDS: lisinopril 20mg tablet PO SCH (07:28)
[2019-10-02] MEDS: cloNIDine 0.1 mg tablet PO SCH ×2 (07:28→20:15)
[2019-10-02] MEDS: divalproex sod 125mg sprinkle cap PO SCH ×2 (07:28→20:15)
[2019-10-02] MEDS: nicotine 21mg patch - 24 hr TD SCH (08:00)
[2019-10-02 08:06] VITALS: BP 166/103
[2019-10-02] MEDS: lurasidone 60mg tablet PO SCH (17:46)
--- NOTE | 2019-10-02 18:06 | NUR ---
Nursing Progress Note Legal hold: LPS Client on involuntary status for GD Report received from Lee MUNSON with use of SBAR Why are they here: 73 year old female with history of Schizophrenia. [facility] was brought from [facility] because she her health has been steadily declining over the past six weeks and clinician at this facility established that patient needed a higher level of care. Worsening paranoid delusions. Patient has lost weight, is not engaging in any activities outside of her home, is refusing to wash her clothing, or take showers. She becomes irritable when confronted about her hygiene. She has been having decreased energy levels. Patient is not able to take care of basic needs by herself, [facility] evaluated the patient and placed her on a 5150 hold for gravely disabled. Assessment What has happened this shift: Pt is observed sleeping at change of shift. Patient again approaches staff asking for her medications. She takes all of her meds without any issue. She eats her meals with others in the group room and shuffles around during the day. Her demeanor remains the same throughout the day. No changes from previous shift worked. S/I, H/I: None reported nor observed A/VH: None reported nor observed Sleep: 6.5hrs NOC ADL's: Needs prompting Group attendance: yes Were meds taken: yes Any med S/E: Bilateral hand tremors. Pt taking 2mg Cogentin BID, shuffling gate Mental Status Exam Appearance: base line, heavy smeared make-up Eye contact: direct Behavior: pleasant, cooperative Speech: soft tone, normal rate and rhythm Mood: happy Affect: restricted Thought process: linear Thought Content: focused on going home Cognition: A/O x3 Insight: fair to good Judgment: fair to good Interventions PRN's used: None Therapeutic interventions: 1:1 attempted therapeutic assessment, maintained safe therapeutic milieu, obtained BP and HR, provided medication administration/education/monitoring as needed; Q15 safety checks. Restraints/seclusion/emergency medication: None Justification of Continued Inpatient Treatment: Patient is gravely disabled and is unable to take care of basic needs. Continued therapeutic support and medication management needed to provide stabilization, prevent decompensation, and improve coping mechanisms decreasing risk to patient and re-admittance. Pt started on Invega Sustenna 156mg on 09/25 since she routinely refused PO medications; pt is unable to return to former housing; awaiting placement.
[2019-10-02 19:36] VITALS: BP 181/76
[2019-10-02] MEDS: oxybutynin 5mg tablet PO SCH (20:15)
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
[2019-10-03] MEDS: lurasidone 20mg tablet PO SCH (07:54)
[2019-10-03] MEDS: divalproex sod 125mg sprinkle cap PO SCH ×2 (07:54→20:24)
[2019-10-03] MEDS: propranolol 10mg tablet PO SCH ×3 (07:55→20:24)
[2019-10-03] MEDS: cloNIDine 0.1 mg tablet PO SCH ×2 (07:55→20:24)
[2019-10-03] MEDS: furosemide 20MG tablet PO SCH (07:55)
[2019-10-03] MEDS: benztropine 1mg tablet PO SCH ×2 (07:55→20:24)
[2019-10-03] MEDS: lisinopril 20mg tablet PO SCH (07:55)
[2019-10-03] MEDS: nicotine 21mg patch - 24 hr TD SCH (08:00)
[2019-10-03 08:01] VITALS: BP 165/64
--- NOTE | 2019-10-03 16:36 | NUR ---
Nursing Progress Note Legal hold: LPS Client on involuntary status for GD Report received from Sandhya MUNSON with use of SBAR Why are they here: 73 year old female with history of Schizophrenia. [facility] Patient was brought from [facility] because she her health has been steadily declining over the past six weeks and clinician at this facility established that patient needed a higher level of care. Worsening paranoid delusions. Patient has lost weight, is not engaging in any activities outside of her home, is refusing to wash her clothing, or take showers. She becomes irritable when confronted about her hygiene. She has been having decreased energy levels. Patient is not able to take care of basic needs by herself, [facility] evaluated the patient and placed her on a 5150 hold for gravely disabled. Assessment What has happened this shift: Pt is observed up and about the unit at change of shift. Patient again approaches staff asking for her medications. She takes all of her meds without any issue. She eats her meals with others in the group room and shuffles around during the day. She states that she is ready to discharge and would like to leave. Each time medications are due during the day patient requests to have them. No changes from previous shift worked. S/I, H/I: None reported nor observed A/VH: None reported nor observed Sleep: 6.5hrs NOC ADL's: Needs prompting Group attendance: yes Were meds taken: yes Any med S/E: Bilateral hand tremors. Pt taking 2mg Cogentin BID, shuffling gate Mental Status Exam Appearance: base line, heavy smeared make-up Eye contact: direct Behavior: pleasant, cooperative Speech: soft tone, normal rate and rhythm Mood: content Affect: restricted with occasional brightening Thought process: linear Thought Content: focused on going home Cognition: A/O x3 Insight: fair to good Judgment: fair to good Interventions PRN's used: None Therapeutic interventions: 1:1 attempted therapeutic assessment, maintained safe therapeutic milieu, obtained BP and HR, provided medication administration/education/monitoring as needed; Q15 safety checks. Restraints/seclusion/emergency medication: None Justification of Continued Inpatient Treatment: Patient is gravely disabled and is unable to take care of basic needs. Continued therapeutic support and medication management needed to provide stabilization, prevent decompensation, and improve coping mechanisms decreasing risk to patient and re-admittance. Pt started on Invega Sustenna 156mg on 09/25 since she routinely refused PO medications; pt is unable to return to former housing; awaiting placement.
[2019-10-03] MEDS: lurasidone 60mg tablet PO SCH (17:29)
[2019-10-03 19:38] VITALS: BP 148/72
[2019-10-03] MEDS: oxybutynin 5mg tablet PO SCH (20:24)
--- NOTE | 2019-10-04 05:17 | NUR ---
Nursing Progress Note Legal hold: LPS Client on involuntary status for GD Report received from Kilo LOVE with use of SBAR Why are they here: 73 year old female with history of Schizophrenia. Lives at [facility], decompensated. Patient was brought from [facility] because she her health has been steadily declining over the past six weeks and clinician at this facility established that patient needed a higher level of care. Worsening paranoid delusions. Patient has lost weight, is not engaging in any activities outside of her home, is refusing to wash her clothing, or take showers. She becomes irritable when confronted about her hygiene. She has been having decreased energy levels. Patient is not able to take care of basic needs by herself, [facility] evaluated the patient and placed her on a 5150 hold for gravely disabled. Assessment What has happened this shift: Patient in the group room watching tv with peers at the beginning of shift. Patient pleasant and cooperative with all care. Compliant with all medications. Patient offered many compliments to this expert medical writer while visiting with patient. Patient denies SI, HI, A/VH. No delusional thought content provided this shift. Patient reported "not doing good" and expressed boredom and dislike for being "stuck" on the unit. Patient continues to express wanting to "go back home" talking about Katie. Patient observed briefly sleeping in her bed and later moved to bedside chair. S/I, H/I: Denies A/VH: Denies Sleep: Refer to sleep assessment ADL's: Needs prompting Group attendance: No groups this shift Were meds taken: yes Any med S/E: Bilateral hand tremors. Pt taking 2mg Cogentin BID Mental Status Exam Appearance: base line, heavy smeared make-up, dreaded wig, green scrubs Eye contact: direct Behavior: pleasant and cooperative Speech: soft tone, normal rate and rhythm Mood: "not doing good" Affect: incongruent Thought process: linear Thought Content: discharge Cognition: A/O x3 Insight: poor Judgment: poor Interventions PRN's used: None Therapeutic interventions: 1:1 attempted therapeutic assessment, maintained safe therapeutic milieu, obtained BP and HR, provided medication administration/education/monitoring as needed; Q15 safety checks. Restraints/seclusion/emergency medication: None Justification of Continued Inpatient Treatment: Patient is gravely disabled and is unable to take care of basic needs. Continued therapeutic support and medication management needed to provide stabilization, prevent decompensation, and improve coping mechanisms decreasing risk to patient and re-admittance. Pt started on Invega Sustenna 156mg on 09/25 since she routinely refused PO medications; pt is unable to return to former housing; awaiting placement.
[2019-10-04 07:41] VITALS: BP 152/76
[2019-10-04] MEDS: lurasidone 20mg tablet PO SCH (07:51)
[2019-10-04] MEDS: divalproex sod 125mg sprinkle cap PO SCH ×2 (07:51→20:15)
[2019-10-04] MEDS: furosemide 20MG tablet PO SCH (07:51)
[2019-10-04] MEDS: benztropine 1mg tablet PO SCH ×2 (07:51→20:15)
[2019-10-04] MEDS: propranolol 10mg tablet PO SCH ×3 (07:52→20:15)
[2019-10-04] MEDS: lisinopril 20mg tablet PO SCH (07:52)
[2019-10-04] MEDS: cloNIDine 0.1 mg tablet PO SCH ×2 (07:52→20:14)
[2019-10-04] MEDS: nicotine 21mg patch - 24 hr TD SCH (08:00)
--- NOTE | 2019-10-04 10:04 | NUR ---
reassessment: Pt PO 75-100% avg meals meeting needs. LBM 10/03. No nutrition concerns at this time. Will continue to monitor. Rec: 1. continue regular diet 2. bowel care as needed 3. wt per rx Addendum: 10/04/19 at [address] Amended: Links added.
[2019-10-04 12:35] VITALS: BP 131/59
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
[2019-10-04] MEDS: lurasidone 60mg tablet PO SCH (17:28)
[2019-10-04 19:48] VITALS: BP 134/83
[2019-10-04] MEDS: oxybutynin 5mg tablet PO SCH (20:14)
--- NOTE | 2019-10-04 21:00 | NUR ---
Nursing Progress Note Legal hold: LPS Client on involuntary status for GD Report received from Michael MUNSON with use of SBAR Why are they here: 73 year old female with history of Schizophrenia. [facility] Patient was brought from [facility] because she her health has been steadily declining over the past six weeks and clinician at this facility established that patient needed a higher level of care. Worsening paranoid delusions. Patient has lost weight, is not engaging in any activities outside of her home, is refusing to wash her clothing, or take showers. She becomes irritable when confronted about her hygiene. She has been having decreased energy levels. Patient is not able to take care of basic needs by herself, [facility] evaluated the patient and placed her on a 5150 hold for gravely disabled. Assessment What has happened this shift: PT is sitting in rec room watching TV with peers. She is pleasant on approach and compliments staff. Pt smiles and makes good eye contact. Pt is wearing smeared red lipstick and black eyeliner. Pt talks about people she used to know and living in [place]. Pt is cooperative with 1:1 assessment and medication compliant. S/I, H/I: Denies A/VH: Denies Sleep: Refer to sleep assessment ADL's: Needs prompting Group attendance: No groups this shift Were meds taken: yes Any med S/E: Bilateral hand tremors. Pt taking 2mg Cogentin BID Mental Status Exam Appearance: base line, heavy smeared make-up, uncombed wig, green scrubs Eye contact: direct Behavior: pleasant and cooperative Speech: soft tone, normal rate and rhythm Mood: "not doing good" Affect: incongruent Thought process: linear Thought Content: discharge Cognition: A/O x3 Insight: poor Judgment: poor Interventions PRN's used: None Therapeutic interventions: 1:1 attempted therapeutic assessment, maintained safe therapeutic milieu, obtained BP and HR, provided medication administration/education/monitoring as needed; Q15 safety checks. Restraints/seclusion/emergency medication: None Justification of Continued Inpatient Treatment: Patient is gravely disabled and is unable to take care of basic needs. Continued therapeutic support and medication management needed to provide stabilization, prevent decompensation, and improve coping mechanisms decreasing risk to patient and re-admittance. Pt started on Invega Sustenna 156mg on 09/25 since she routinely refused PO medications; pt is unable to return to former housing; awaiting placement.
[2019-10-05] MEDS: divalproex sod 125mg sprinkle cap PO SCH ×2 (07:32→20:02)
[2019-10-05] MEDS: lurasidone 20mg tablet PO SCH (07:32)
[2019-10-05] MEDS: cloNIDine 0.1 mg tablet PO SCH ×2 (07:33→20:03)
[2019-10-05] MEDS: furosemide 20MG tablet PO SCH (07:33)
[2019-10-05] MEDS: benztropine 1mg tablet PO SCH ×2 (07:33→20:03)
[2019-10-05] MEDS: lisinopril 20mg tablet PO SCH (07:34)
[2019-10-05] MEDS: propranolol 10mg tablet PO SCH ×3 (07:35→20:03)
[2019-10-05 08:00] VITALS: BP 134/64
[2019-10-05] MEDS: nicotine 21mg patch - 24 hr TD SCH (08:00)
--- NOTE | 2019-10-05 08:19 | NUR ---
DISCHARGE PLANNING Faxed packet (Dr's notes, nurses notes, labs) to [facility] office. Public Guardian wants to place Ct at a higher lever of care and she is unable to return to [facility]. DELMA Roldan
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
[2019-10-05] MEDS: lurasidone 60mg tablet PO SCH (18:10)
[2019-10-05 20:00] VITALS: BP 168/75
[2019-10-05] MEDS: oxybutynin 5mg tablet PO SCH (20:02)
--- NOTE | 2019-10-05 23:11 | NUR ---
Nursing Progress Note Legal hold: LPS Client on involuntary status for GD Report received from Nicole MUNSON with use of SBAR Why are they here: 73 year old female with history of Schizophrenia. Lived at [facility], decompensated. Patient was brought from [facility] because she her health has been steadily declining over the past six weeks and clinician at this facility established that patient needed a higher level of care. Worsening paranoid delusions. Patient has lost weight, is not engaging in any activities outside of her home, is refusing to wash her clothing, or take showers. She becomes irritable when confronted about her hygiene. She has been having decreased energy levels. Patient is not able to take care of basic needs by herself, [facility] evaluated the patient and placed her on a 5150 hold for gravely disabled. Assessment What has happened this shift: PT is pleasant on approach but becomes tearful and anxious talking about how long she has been here. "I just want to go back to [facility] that is my home." "They told me I need some kind of higher level of care but I don't I need to go back to [facility]." I shower and take my medications." Compliance Mgr redirects pt and eventually she becomes cheerful again. She is medication compliant and cooperative with 1:1 assessment. S/I, H/I: Denies A/VH: Denies Sleep: Refer to sleep assessment ADL's: Needs prompting Group attendance: No groups this shift Were meds taken: yes Any med S/E: Bilateral hand tremors. Pt taking 2mg Cogentin BID Mental Status Exam Appearance: base line, heavy smeared make-up, uncombed wig, green scrubs Eye contact: direct Behavior: pleasant and cooperative Speech: soft tone, normal rate and rhythm Mood: "not doing good" Affect: incongruent Thought process: linear Thought Content: discharge Cognition: A/O x3 Insight: poor Judgment: poor Interventions PRN's used: None Therapeutic interventions: 1:1 attempted therapeutic assessment, maintained safe therapeutic milieu, obtained BP and HR, provided medication administration/education/monitoring as needed; Q15 safety checks. Restraints/seclusion/emergency medication: None Justification of Continued Inpatient Treatment: Patient is gravely disabled and is unable to take care of basic needs. Continued therapeutic support and medication management needed to provide stabilization, prevent decompensation, and improve coping mechanisms decreasing risk to patient and re-admittance. Pt started on Invega Sustenna 156mg on 09/25 since she routinely refused PO medications; pt is unable to return to former housing; awaiting placement.
[2019-10-06 07:24] VITALS: BP 148/65
[2019-10-06] MEDS: furosemide 20MG tablet PO SCH (07:26)
[2019-10-06] MEDS: cloNIDine 0.1 mg tablet PO SCH ×2 (07:26→20:24)
[2019-10-06] MEDS: propranolol 10mg tablet PO SCH ×3 (07:27→20:24)
[2019-10-06] MEDS: lurasidone 20mg tablet PO SCH (07:27)
[2019-10-06] MEDS: divalproex sod 125mg sprinkle cap PO SCH ×2 (07:27→20:24)
[2019-10-06] MEDS: lisinopril 20mg tablet PO SCH (07:27)
[2019-10-06] MEDS: benztropine 1mg tablet PO SCH ×2 (07:27→20:24)
[2019-10-06] MEDS: nicotine 21mg patch - 24 hr TD SCH (08:00)
--- NOTE | 2019-10-06 11:21 | NUR ---
PUBLIC GUARDIAN Spoke to Adriane Mahoney's Public Guardian (ph# [phone]), regarding how they would like Ct to find out that she is not returning to [facility]. Informed her that the treatment team is concerned that Ct may decompensate once she finds this out. She reported she will find out what is going on with her placement and call press writer back. DELMA Roldan
--- NOTE | 2019-10-06 13:22 | NUR ---
Nursing Progress Note Legal hold: LPS Client on involuntary status for GD Report received from ARPIT Nash with use of SBAR Why are they here: 73 year old female with history of Schizophrenia. [facility] Patient was brought from [facility] because she her health has been steadily declining over the past six weeks and clinician at this facility established that patient needed a higher level of care. Worsening paranoid delusions. Patient has lost weight, is not engaging in any activities outside of her home, is refusing to wash her clothing, or take showers. She becomes irritable when confronted about her hygiene. She has been having decreased energy levels. Patient is not able to take care of basic needs by herself, [facility] evaluated the patient and placed her on a 5150 hold for gravely disabled. Assessment What has happened this shift: The patient was asleep at change of shift. Compliant with morning medications, however was irritable at administration of noon meds telling nurse, "why didn't you bring it to me sooner and you didn't bring water!! Are you stupid?" Attends groups and sits with others. Mostly cooperative, at times isolates to room and sits in chair. S/I, H/I: Denies A/VH: Denies Sleep: Naps ADL's: Needs prompting Group attendance: Yes Were meds taken: yes Any med S/E: None Mental Status Exam Appearance: disheveled Eye contact: direct Behavior: cooperative with some irritability Speech: soft tone, normal rate and rhythm Mood: depressed/irritable Affect: Congruent to mood Thought process: goal oriented Thought Content: "I want to go home" Cognition: Alert Insight: poor Judgment: poor Interventions PRN's used: None Therapeutic interventions: 1:1 attempted therapeutic assessment, maintained safe therapeutic milieu, obtained BP and HR, provided medication administration/education/monitoring as needed; Q15 safety checks. Restraints/seclusion/emergency medication: None Justification of Continued Inpatient Treatment: Patient is gravely disabled and is unable to take care of basic needs. Continued therapeutic support and medication management needed to provide stabilization, prevent decompensation, and improve coping mechanisms decreasing risk to patient and re-admittance. Pt started on Invega Sustenna 156mg on 09/25 since she routinely refused PO medications; pt is unable to return to former housing; awaiting placement.
[2019-10-06] MEDS: lurasidone 60mg tablet PO SCH (17:55)
[2019-10-06 19:27] VITALS: BP 133/64
[2019-10-06] MEDS: oxybutynin 5mg tablet PO SCH (20:24)
--- NOTE | 2019-10-06 23:58 | NUR ---
Nursing Progress Note Legal hold: LPS Client on involuntary status for GD Report received from ARPIT Rivera with use of SBAR Why are they here: 73 year old female with history of Schizophrenia. [facility] Patient was brought from [facility] because she her health has been steadily declining over the past six weeks and clinician at this facility established that patient needed a higher level of care. Worsening paranoid delusions. Patient has lost weight, is not engaging in any activities outside of her home, is refusing to wash her clothing, or take showers. She becomes irritable when confronted about her hygiene. She has been having decreased energy levels. Patient is not able to take care of basic needs by herself, [facility] evaluated the patient and placed her on a 5150 hold for gravely disabled. Assessment What has happened this shift: The patient was up in the dining room watching TV with peers. She was seen for the evening assessment. She stated that she does not want to be here and that she wants to go back to [facility]. "I don't like it here. They keep getting my vital signs." She quickly became irritable during the assessment and stated, "I can't stand all of this medical bullshit!" She is walking with a stiff gait and was drooling. She is on Cogentin. Her moods were labile and at times she was pleasant but then quickly becomes frustrated and irritable. She was focused on getting coffee. "If I get real coffee it takes the pain away" She is easily redirected with change of topics. S/I, H/I: Denies A/VH: Denies Sleep: ADL's: Needs prompting Group attendance: Were meds taken: yes Any med S/E: stiff gait, drooling Mental Status Exam Appearance: disheveled, Bizarre with costume black wig and smeared exaggerated makeup Eye contact: direct Behavior: cooperative with some irritability Speech: soft tone, normal rate and rhythm Mood: depressed/irritable, Labile Affect: Congruent to mood Thought process: goal oriented Thought Content: "I want to go home" Cognition: Alert Insight: poor Judgment: poor Interventions PRN's used: None Therapeutic interventions: 1:1 attempted therapeutic assessment, maintained safe therapeutic milieu, obtained BP and HR, provided medication administration/education/monitoring as needed; Q15 safety checks. Restraints/seclusion/emergency medication: None Justification of Continued Inpatient Treatment: Patient is gravely disabled and is unable to take care of basic needs. Continued therapeutic support and medication management needed to provide stabilization, prevent decompensation, and improve coping mechanisms decreasing risk to patient and re-admittance. Pt started on Invega Sustenna 156mg on 09/25 since she routinely refused PO medications; pt is unable to return to former housing; awaiting placement.
[2019-10-07] MEDS: divalproex sod 125mg sprinkle cap PO SCH ×2 (07:26→20:57)
[2019-10-07] MEDS: lurasidone 20mg tablet PO SCH (07:26)
[2019-10-07] MEDS: cloNIDine 0.1 mg tablet PO SCH ×2 (07:26→20:55)
[2019-10-07] MEDS: propranolol 10mg tablet PO SCH ×3 (07:27→20:56)
[2019-10-07] MEDS: benztropine 1mg tablet PO SCH ×2 (07:27→20:55)
[2019-10-07] MEDS: lisinopril 20mg tablet PO SCH (07:27)
[2019-10-07] MEDS: furosemide 20MG tablet PO SCH (07:27)
--- NOTE | 2019-10-07 07:45 | NUR ---
DISCHARGE PLANNING Called [facility] office to inquire about Ct's placement. Was informed that Ct's packet has NOT been sent out yet. Logistics Supervisor faxed over a packet on Saturday. Called Ct's PG, Maru (ph# [phone]), and left message informing her that Ct is doing much better and is ready for placement. Requested a call back and asked again how she would like us to handle telling Ct she is not able to return to [facility]. DELMA Roldan
[2019-10-07 08:00] VITALS: BP 143/54
--- NOTE | 2019-10-07 11:03 | NUR ---
PUBLIC GUARDIAN Called Ct's PG, Maru (ph# [phone]) again to tell her that HUE Silva, is going to inform Ct today that she is unable to return to [facility]. Maru reported that Ct is welcome to call her anytime. DELMA Roldan
--- NOTE | 2019-10-07 13:10 | NUR ---
Nursing Progress Note Legal hold: LPS Client on involuntary status for GD Report received from ARPIT Nash with use of SBAR Why are they here: 73 year old female with history of Schizophrenia. [facility] Patient was brought from [facility] because she her health has been steadily declining over the past six weeks and clinician at this facility established that patient needed a higher level of care. Worsening paranoid delusions. Patient has lost weight, is not engaging in any activities outside of her home, is refusing to wash her clothing, or take showers. She becomes irritable when confronted about her hygiene. She has been having decreased energy levels. Patient is not able to take care of basic needs by herself, [facility] evaluated the patient and placed her on a 5150 hold for gravely disabled. Assessment What has happened this shift: The patient was asleep at change of shift. Compliant with medications. Patient aware she will not be returning to [facility]. Upset at first but calmed quickly. Attends groups and sits with others. Mostly cooperative, at times isolates to room and sits in chair. S/I, H/I: Denies A/VH: Denies Sleep: Naps ADL's: Needs prompting Group attendance: Yes Were meds taken: yes Any med S/E: None Mental Status Exam Appearance: disheveled Eye contact: direct Behavior: cooperative with some irritability Speech: soft tone, normal rate and rhythm Mood: depressed/irritable Affect: Congruent to mood Thought process: goal oriented Thought Content: "I want to go home" Cognition: Alert Insight: poor Judgment: poor Interventions PRN's used: None Therapeutic interventions: 1:1 attempted therapeutic assessment, maintained safe therapeutic milieu, obtained BP and HR, provided medication administration/education/monitoring as needed; Q15 safety checks. Restraints/seclusion/emergency medication: None Justification of Continued Inpatient Treatment: Patient is gravely disabled and is unable to take care of basic needs. Continued therapeutic support and medication management needed to provide stabilization, prevent decompensation, and improve coping mechanisms decreasing risk to patient and re-admittance. Pt started on Invega Sustenna 156mg on 09/25 since she routinely refused PO medications; pt is unable to return to former housing; awaiting placement.
[2019-10-07] MEDS: lurasidone 60mg tablet PO SCH (17:24)
[2019-10-07 20:00] VITALS: BP 154/67
[2019-10-07] MEDS: oxybutynin 5mg tablet PO SCH (20:56)
--- NOTE | 2019-10-08 01:49 | NUR ---
Nursing Progress Note Legal hold: LPS Client on involuntary status for GD Report received from ARPIT Boateng with use of SBAR Why are they here: 73 year old female with history of Schizophrenia. [facility] Patient was brought from [facility] because she her health has been steadily declining over the past six weeks and clinician at this facility established that patient needed a higher level of care. Worsening paranoid delusions. Patient has lost weight, is not engaging in any activities outside of her home, is refusing to wash her clothing, or take showers. She becomes irritable when confronted about her hygiene. She has been having decreased energy levels. Patient is not able to take care of basic needs by herself, [facility] evaluated the patient and placed her on a 5150 hold for gravely disabled. Assessment What has happened this shift: Patient up and visible on the unit at change of shift. She is pleasant and interact with others. She reports being upset about not being able to go back to [facility] and how she wants to talk to her public guardian about her placement. Michael is complaint wit her HS medications this evening and remains in a pleasant mood all shift. S/I, H/I: Denies A/VH: Denies Sleep: See sleep assessment ADL's: Needs prompting Group attendance: No groups this shift Were meds taken: Yes Any med S/E: None Mental Status Exam Appearance: Disheveled Eye contact: Direct Behavior: Cooperative Speech: Soft tone, normal rate and rhythm Mood: Upset (about not going back to [facility]) Affect: Congruent to mood Thought process: Goal oriented Thought Content: "I want to go home" Cognition: Alert Insight: Poor Judgment: Poor Interventions PRN's used: None Therapeutic interventions: 1:1 attempted therapeutic assessment, maintained safe therapeutic milieu, obtained BP and HR, provided medication administration/education/monitoring as needed; Q15 safety checks. Restraints/seclusion/emergency medication: None Justification of Continued Inpatient Treatment: Patient is gravely disabled and is unable to take care of basic needs. Continued therapeutic support and medication management needed to provide stabilization, prevent decompensation, and improve coping mechanisms decreasing risk to patient and re-admittance. Pt started on Invega Sustenna 156mg on 09/25 since she routinely refused PO medications; pt is unable to return to former housing; awaiting placement.
[2019-10-08] MEDS: propranolol 10mg tablet PO SCH ×3 (07:44→20:27)
[2019-10-08] MEDS: cloNIDine 0.1 mg tablet PO SCH ×2 (07:44→20:27)
[2019-10-08] MEDS: furosemide 20MG tablet PO SCH (07:44)
[2019-10-08] MEDS: divalproex sod 125mg sprinkle cap PO SCH ×2 (07:45→20:27)
[2019-10-08] MEDS: lisinopril 20mg tablet PO SCH (07:45)
[2019-10-08] MEDS: benztropine 1mg tablet PO SCH ×2 (07:45→20:27)
[2019-10-08] MEDS: lurasidone 20mg tablet PO SCH (07:45)
[2019-10-08 08:07] VITALS: BP 140/77
--- NOTE | 2019-10-08 16:31 | NUR ---
Nursing Progress Note: [facility] Legal hold: LPS Client on involuntary status for GD Report received from IVAN Nash with use of SBAR Why are they here: 73 year old female with history of Schizophrenia. Lived at [facility], decompensated. Patient was brought from [facility] because she her health has been steadily declining over the past six weeks and clinician at this facility established that patient needed a higher level of care. Worsening paranoid delusions. Patient has lost weight, is not engaging in any activities outside of her home, is refusing to wash her clothing, or take showers. She becomes irritable when confronted about her hygiene. She has been having decreased energy levels. Patient is not able to take care of basic needs by herself, [facility] evaluated the patient and placed her on a 5150 hold for gravely disabled. Assessment What has happened this shift: Patient up and visible on the unit at change of shift. She is pleasant and interact with others. She reports being upset about not being able to go back to [facility] and how she wants to talk to her new public guardian Maru about this. She is compliant with morning medications and requests to have them in a smaller cup as they are easier for her to manipulate that way. After breakfast pt became angry because tech informed her she is not allowed to have food/drink in her room, pt became irate and grabbed a cup of coffee and went ot her room arguing down the hallway. When questioned if she wanted to talk the pt yelled, Leave me alone you bitch! Pt later apologized for her bx. She denies any SEs to medications, none were objectively observed. S/I, H/I: Denies A/VH: Denies Sleep: 3hrs NOC ADL's: Needs prompting Group attendance: Yes Were meds taken: Yes Any med S/E: None Mental Status Exam Appearance: Disheveled Eye contact: Direct Behavior: Cooperative Speech: Soft tone, normal rate and rhythm Mood: Upset, Labile (about not going back to [facility] & unit food/drink policies) Affect: Congruent to mood Thought process: Goal oriented Thought Content: "I want to go back to [facility]" Cognition: A & O X4 Insight: Poor Judgment: Poor Interventions PRN's used: Therapeutic interventions: 1:1 attempted therapeutic assessment, maintained safe therapeutic milieu, obtained BP and HR, provided medication administration/education/monitoring as needed; Q15 safety checks. Restraints/seclusion/emergency medication: None Justification of Continued Inpatient Treatment: Patient is gravely disabled and is unable to take care of basic needs. Continued therapeutic support and medication management needed to provide stabilization, prevent decompensation, and improve coping mechanisms decreasing risk to patient and re-admittance. Pt started on Invega Sustenna 156mg on 09/25 since she routinely refused PO medications; pt is unable to return to former housing; awaiting placement.
[2019-10-08] MEDS: lurasidone 60mg tablet PO SCH (17:45)
[2019-10-08 20:00] VITALS: BP 167/69
[2019-10-08] MEDS: oxybutynin 5mg tablet PO SCH (20:27)
--- NOTE | 2019-10-09 03:41 | NUR ---
Nursing Progress Note Legal hold: LPS Client on involuntary status for GD Report received from IVAN Boateng with use of SBAR Why are they here: 73 year old female with history of Schizophrenia. Lived at [facility], decompensated. Patient was brought from [facility] because she her health has been steadily declining over the past six weeks and clinician at this facility established that patient needed a higher level of care. Worsening paranoid delusions. Patient has lost weight, is not engaging in any activities outside of her home, is refusing to wash her clothing, or take showers. She becomes irritable when confronted about her hygiene. She has been having decreased energy levels. Patient is not able to take care of basic needs by herself, [facility] evaluated the patient and placed her on a 5150 hold for gravely disabled. Assessment What has happened this shift: Patient sitting in bedside chair at the beginning of shift. Patient irritable but cooperative with all care. Patient became upset while VS were being done claiming they only needed done in the morning. Patient didn't want to listen to explanation of why VS were needed but allowed this nurse to take them, stating, "I don't want to argue with you. If you're going to take them, take them." Compliant with all medications. Patient didn't want to engage in conversation, stating, "I don't need to talk to all you nurses. You can get out now." Patient observed sleeping in her bedside chair this shift. S/I, H/I: Denies A/VH: Denies Sleep: See sleep assessment ADL's: Needs prompting Group attendance: No groups this shift Were meds taken: Yes Any med S/E: None reported or observed Mental Status Exam Appearance: Disheveled Eye contact: Direct Behavior: Irritable but cooperative Speech: Soft tone, normal rate and rhythm Mood: Upset (about not going back to [facility]) Affect: Congruent to mood Thought process: Goal oriented Thought Content: "I want to go home" Cognition: Alert Insight: Poor Judgment: Poor Interventions PRN's used: None Therapeutic interventions: 1:1 attempted therapeutic assessment, maintained safe therapeutic milieu, obtained BP and HR, provided medication administration/education/monitoring as needed; Q15 safety checks. Restraints/seclusion/emergency medication: None Justification of Continued Inpatient Treatment: Patient is gravely disabled and is unable to take care of basic needs. Continued therapeutic support and medication management needed to provide stabilization, prevent decompensation, and improve coping mechanisms decreasing risk to patient and re-admittance. Pt started on Invega Sustenna 156mg on 09/25 since she routinely refused PO medications; pt is unable to return to former housing; awaiting placement.
[2019-10-09 07:00] VITALS: BP 156/70
[2019-10-09] MEDS: cloNIDine 0.1 mg tablet PO SCH ×2 (07:39→21:16)
[2019-10-09] MEDS: propranolol 10mg tablet PO SCH ×3 (07:39→21:16)
[2019-10-09] MEDS: furosemide 20MG tablet PO SCH (07:39)
[2019-10-09] MEDS: lurasidone 20mg tablet PO SCH (07:39)
[2019-10-09] MEDS: benztropine 1mg tablet PO SCH ×2 (07:39→21:17)
[2019-10-09] MEDS: lisinopril 20mg tablet PO SCH (07:39)
[2019-10-09] MEDS: divalproex sod 125mg sprinkle cap PO SCH ×2 (07:39→21:17)
--- NOTE | 2019-10-09 13:33 | NUR ---
Nursing Progress Note Legal hold: LPS Client on involuntary status for GD Report received from ARPIT Howard with use of SBAR Why are they here: 73 year old female with history of Schizophrenia. [facility] Patient was brought from [facility] because she her health has been steadily declining over the past six weeks and clinician at this facility established that patient needed a higher level of care. Worsening paranoid delusions. Patient has lost weight, is not engaging in any activities outside of her home, is refusing to wash her clothing, or take showers. She becomes irritable when confronted about her hygiene. She has been having decreased energy levels. Patient is not able to take care of basic needs by herself, [facility] evaluated the patient and placed her on a 5150 hold for gravely disabled. Assessment What has happened this shift: The patient was awake at change of shift sitting in a chair in the hallway. She is eating well and taking in plenty of fluids. She is moderately irritable today due to not being able to "go home to [facility]." she attends groups and meals and then retreats to room for a nap in her chair. Depressed mood, no suicidal thoughts and a constricted affect. S/I, H/I: Denies A/VH: Denies Sleep: Naps ADL's: Needs prompting Group attendance: yes Were meds taken: Yes Any med S/E: None reported or observed Mental Status Exam Appearance: Disheveled Eye contact: Direct Behavior: Irritable but cooperative Speech: Soft tone, normal rate and rhythm Mood: Depressed (about not going back to [facility]) Affect: Constricted Thought process: Goal oriented Thought Content: "I want to go home" Cognition: Alert Insight: Poor Judgment: Poor Interventions PRN's used: None Therapeutic interventions: 1:1 attempted therapeutic assessment, maintained safe therapeutic milieu, obtained BP and HR, provided medication administration/education/monitoring as needed; Q15 safety checks. Restraints/seclusion/emergency medication: None Justification of Continued Inpatient Treatment: Patient is gravely disabled and is unable to take care of basic needs. Continued therapeutic support and medication management needed to provide stabilization, prevent decompensation, and improve coping mechanisms decreasing risk to patient and re-admittance. Pt started on Invega Sustenna 156mg on 09/25 since she routinely refused PO medications; pt is unable to return to former housing; awaiting placement.
[2019-10-09] MEDS: lurasidone 60mg tablet PO SCH (17:24)
[2019-10-09 20:00] VITALS: BP 152/60
[2019-10-09] MEDS: oxybutynin 5mg tablet PO SCH (21:16)
--- NOTE | 2019-10-10 04:10 | NUR ---
Nursing Progress Note Legal hold: LPS Client on involuntary status for GD Report received from IVAN Boateng with use of SBAR Why are they here: 73 year old female with history of Schizophrenia. [facility] Patient was brought from [facility] because she her health has been steadily declining over the past six weeks and clinician at this facility established that patient needed a higher level of care. Worsening paranoid delusions. Patient has lost weight, is not engaging in any activities outside of her home, is refusing to wash her clothing, or take showers. She becomes irritable when confronted about her hygiene. She has been having decreased energy levels. Patient is not able to take care of basic needs by herself, [facility] evaluated the patient and placed her on a 5150 hold for gravely disabled. Assessment What has happened this shift: Patient watching TV in recreation room at the beginning of shift. Patient is pleasant and cooperative. Compliant with all medications. Patient questioned the dosage of Depakote and showed understanding with explanation. Patient, however, politely explained she does better on Risperdal than she does on Depakote. Patient offered many compliments to nursing staff this shift. Patient continues to explain her desire to go back to [facility] and when this writer editor explained finding other placement options she strongly expressed not wanting "to be locked away to never see daylight." Patient was easily redirected when explained to that other facilities will not be like current unit and she will have plenty of opportunity to see daylight. She accompanied peers during HS snack and went back to the rec room to watch TV until approx 2200 and went to her room where she was observed sleeping in her bedside chair. S/I, H/I: Denies A/VH: Denies Sleep: See sleep assessment ADL's: Needs prompting Group attendance: No groups this shift Were meds taken: Yes Any med S/E: None reported or observed Mental Status Exam Appearance: Disheveled Eye contact: Direct Behavior: sociable, pleasant and cooperative Speech: Soft tone, normal rate and rhythm Mood: "good" Affect: Congruent to mood Thought process: Goal oriented Thought Content: Wanting a place to live where she is able to go outside Cognition: Alert Insight: Poor Judgment: Poor Interventions PRN's used: None Therapeutic interventions: 1:1 attempted therapeutic assessment, maintained safe therapeutic milieu, obtained BP and HR, provided medication administration/education/monitoring as needed; Q15 safety checks. Restraints/seclusion/emergency medication: None Justification of Continued Inpatient Treatment: Patient is gravely disabled and is unable to take care of basic needs. Continued therapeutic support and medication management needed to provide stabilization, prevent decompensation, and improve coping mechanisms decreasing risk to patient and re-admittance. Pt started on Invega Sustenna 156mg on 09/25 since she routinely refused PO medications; pt is unable to return to former housing; awaiting placement.
[2019-10-10 07:36] VITALS: BP 150/57
[2019-10-10] MEDS: benztropine 1mg tablet PO SCH ×2 (07:49→20:45)
[2019-10-10] MEDS: cloNIDine 0.1 mg tablet PO SCH ×2 (07:49→20:42)
[2019-10-10] MEDS: divalproex sod 125mg sprinkle cap PO SCH ×3 (07:52→20:43)
[2019-10-10] MEDS: lurasidone 20mg tablet PO SCH (07:53)
[2019-10-10] MEDS: furosemide 20MG tablet PO SCH (07:53)
[2019-10-10] MEDS: lisinopril 20mg tablet PO SCH (07:55)
[2019-10-10] MEDS: propranolol 10mg tablet PO SCH ×3 (07:58→20:43)
[2019-10-10 13:37] VITALS: BP 141/66
[2019-10-10] MEDS: lurasidone 60mg tablet PO SCH (17:39)
--- NOTE | 2019-10-10 17:44 | NUR ---
Nursing Progress Note Legal hold: LPS Client on involuntary status for GD Report received from noc nurse with use of SBAR Why are they here: 73 year old female with history of Schizophrenia. [facility] Patient was brought from [facility] because she her health has been steadily declining over the past six weeks and clinician at this facility established that patient needed a higher level of care. Worsening paranoid delusions. Patient has lost weight, is not engaging in any activities outside of her home, is refusing to wash her clothing, or take showers. She becomes irritable when confronted about her hygiene. She has been having decreased energy levels. Patient is not able to take care of basic needs by herself, [facility] evaluated the patient and placed her on a 5150 hold for gravely disabled. Assessment What has happened this shift: Patient up walking around at the beginning of shift asking for medications. She would not go to breakfast without meds first. Patient is cooperative and compliant with all medications. PT sat in chair listening to music and sleeping most of the day. Pt states I had enough diarrhea to fill up the toilet last night 2x. That has not happened in 7 years S/I, H/I: Denies A/VH: Denies Sleep: 4.75 h last noc. Naps throughout day ADL's: Needs prompting Group attendance: No groups this shift Were meds taken: Yes Any med S/E: None reported or observed Mental Status Exam Appearance: Disheveled Eye contact: Direct Behavior: sociable, pleasant and cooperative Speech: Soft tone, normal rate and rhythm Mood: "good" Affect: Congruent to mood Thought process: Goal oriented Thought Content: Wanting a place to live where she is able to go outside Cognition: Alert Insight: Poor Judgment: Poor Interventions PRN's used: None Therapeutic interventions: 1:1 attempted therapeutic assessment, maintained safe therapeutic milieu, obtained BP and HR, provided medication administration/education/monitoring as needed; Q15 safety checks. Restraints/seclusion/emergency medication: None Justification of Continued Inpatient Treatment: Patient is gravely disabled and is unable to take care of basic needs. Continued therapeutic support and medication management needed to provide stabilization, prevent decompensation, and improve coping mechanisms decreasing risk to patient and re-admittance. Pt started on Invega Sustenna 156mg on 09/25 since she routinely refused PO medications; pt is unable to return to former housing; awaiting placement.
[2019-10-10 20:00] VITALS: BP 151/71
[2019-10-10] MEDS: oxybutynin 5mg tablet PO SCH (20:43)
--- NOTE | 2019-10-11 05:20 | NUR ---
Nursing Progress Note Legal hold: LPS Client on involuntary status for GD Report received from IVAN Boateng with use of SBAR Why are they here: 73 year old female with history of Schizophrenia. Lived at [facility], [facility]. Patient was brought from [facility] because she her health has been steadily declining over the past six weeks and clinician at this facility established that patient needed a higher level of care. Worsening paranoid delusions. Patient has lost weight, is not engaging in any activities outside of her home, is refusing to wash her clothing, or take showers. She becomes irritable when confronted about her hygiene. She has been having decreased energy levels. Patient is not able to take care of basic needs by herself, [facility] evaluated the patient and placed her on a 5150 hold for gravely disabled. Assessment What has happened this shift: Patient observed utilizing headphones while sitting in the hallway chair at the beginning of shift. Patient later met by this pattern chart writer in her room and she asked, "what?" This pattern chart writer replied, "just saying hi," and she said, "too many people around her just want to say hi, I don't have to." This pattern chart writer nodded head in agreement and she shuffled away out into the smith. Later on in the shift she approached this pattern chart writer politely and started making pleasant comments about staff, thanking everyone helping her and smiling. She was observed staying up late in the shift but denied feeling tired and just wanted to sit in the smith and listen to music. No delusional thought content provided this shift. No SI, HI, A/VH reported this shift. Compliant with all medications. S/I, H/I: Denies A/VH: Denies Sleep: See sleep assessment ADL's: Needs prompting Group attendance: No groups this shift Were meds taken: Yes Any med S/E: None reported or observed Mental Status Exam Appearance: Disheveled Eye contact: Direct Behavior: sociable, pleasant and cooperative Speech: Soft tone, normal rate and rhythm Mood: "good" Affect: Congruent to mood Thought process: Goal oriented Thought Content: Wanting a place to live where she is able to go outside Cognition: Alert Insight: Poor Judgment: Poor Interventions PRN's used: None Therapeutic interventions: 1:1 attempted therapeutic assessment, maintained safe therapeutic milieu, obtained BP and HR, provided medication administration/education/monitoring as needed; Q15 safety checks. Restraints/seclusion/emergency medication: None Justification of Continued Inpatient Treatment: Patient is gravely disabled and is unable to take care of basic needs. Continued therapeutic support and medication management needed to provide stabilization, prevent decompensation, and improve coping mechanisms decreasing risk to patient and re-admittance. Pt started on Invega Sustenna 156mg on 09/25 since she routinely refused PO medications; pt is unable to return to former housing; awaiting placement.
[2019-10-11] MEDS: furosemide 20MG tablet PO SCH (07:28)
[2019-10-11] MEDS: lurasidone 20mg tablet PO SCH (07:28)
[2019-10-11] MEDS: divalproex sod 125mg sprinkle cap PO SCH ×2 (07:28→20:50)
[2019-10-11] MEDS: benztropine 1mg tablet PO SCH ×2 (07:28→20:49)
[2019-10-11] MEDS: propranolol 10mg tablet PO SCH ×3 (07:29→20:51)
[2019-10-11] MEDS: cloNIDine 0.1 mg tablet PO SCH ×2 (07:29→20:49)
[2019-10-11] MEDS: lisinopril 20mg tablet PO SCH (07:29)
[2019-10-11 07:35] VITALS: BP 161/75
--- NOTE | 2019-10-11 10:00 | NUR ---
reassessment: Pt PO 75-100% avg meals meeting needs. LBM 10/09. No nutrition concerns at this time. Will continue to monitor. Rec: 1. continue regular diet 2. bowel care as needed 3. wt per rx Addendum: 10/11/19 at [address] Amended: Links added.
[2019-10-11 11:43] VITALS: BP 180/73
--- NOTE | 2019-10-11 13:34 | NUR ---
Nursing Progress Note Legal hold: LPS Client on involuntary status for GD Report received from IVAN Elliott with use of SBAR Why are they here: 73 year old female with history of Schizophrenia. [facility] Patient was brought from [facility] because she her health has been steadily declining over the past six weeks and clinician at this facility established that patient needed a higher level of care. Worsening paranoid delusions. Patient has lost weight, is not engaging in any activities outside of her home, is refusing to wash her clothing, or take showers. She becomes irritable when confronted about her hygiene. She has been having decreased energy levels. Patient is not able to take care of basic needs by herself, [facility] evaluated the patient and placed her on a 5150 hold for gravely disabled. Assessment What has happened this shift: Pt requested her medications before breakfast in "a small" med cup. Pt prefers to take her Depakote sprinkles whole instead of sprinkled in applesauce or other food. Pt denied depression, anxiety, SI/HI/AH/VH. Pt's BP before 1300 dose of propranolol was 180/73. Pt reluctantly allowed BP to be taken and reluctantly took the med stating, "I can't wait until all of this is done, I shouldn't have to worry about my blood pressure, my heart's healthy." Education provided on the risk of uncontrolled hypertension. Pt replied, "I don't care if I have a stroke! I hope all these people have a stroke so I won't have to see them anymore!" S/I, H/I: Pt denies A/VH: Pt denies Sleep: Did not sleep at all last night, 0 hours of sleep per noc shift report ADL's: Independent with prompts and encouragement. Group attendance: Yes Were meds taken: Yes Any med S/E: None reported or observed Mental Status Exam Appearance: Disheveled, wears a long black dread lock wig and 1970's style jeans, has heavy dark eye makeup and smudged dark red lipstick. Eye contact: Good Behavior: Cooperative though reluctantly so with BP monitoring and BP medication, frequently uses radio headphones. Speech: Clear, audible, minimal today Mood: Irritable Affect: Congruent Thought process: Reality distortion Thought Content: Does not believe she should have to worry about her blood pressure or take blood pressure medication, not concerned about risk of stroke. Cognition: A/O X 4 Insight: Poor Judgment: Poor Interventions PRN's used: None Therapeutic interventions: 1:1 assessment, active listening, reality orientation, positive reinforcement, maintained safe therapeutic milieu, BP monitoring and education, medication administration/education/monitoring, Q15 min safety checks. Restraints/seclusion/emergency medication: None Justification of Continued Inpatient Treatment: Patient is gravely disabled, she is LPS conserved, she cannot return to [facility], she is awaiting placement by the public guardian. Addendum: 10/11/19 at 1806 by Linda Marquez RN (Lee) Pt's mood improved throughout the day, pt is now pleasant cooperative, and sociable. She was receptive to medication education on Latuda. Pt requested the medication around 1645. She again requested it at 1710. Pt agreed to wait until 1730 then was back at nurses' station asking for it again at 1725. She states that she has taken it for sometime and usually takes it 1/2 an hour before meals and this has worked for her. Pt aware that medication is absorbed better if taken with food.
[2019-10-11] MEDS: lurasidone 60mg tablet PO SCH ×2 (17:07→17:25)
[2019-10-11 19:57] VITALS: BP 169/73
[2019-10-11] MEDS: LORazepam 1 MG tablet PO SCH (20:51)
[2019-10-11] MEDS: oxybutynin 5mg tablet PO SCH (20:51)
--- NOTE | 2019-10-12 03:37 | NUR ---
Nursing Progress Note Legal hold: LPS Client on involuntary status for GD Report received from IVAN Boateng with use of SBAR Why are they here: 73 year old female with history of Schizophrenia. [facility] Patient was brought from [facility] because she her health has been steadily declining over the past six weeks and clinician at this facility established that patient needed a higher level of care. Worsening paranoid delusions. Patient has lost weight, is not engaging in any activities outside of her home, is refusing to wash her clothing, or take showers. She becomes irritable when confronted about her hygiene. She has been having decreased energy levels. Patient is not able to take care of basic needs by herself, [facility] evaluated the patient and placed her on a 5150 hold for gravely disabled. Assessment What has happened this shift: Pt up on unit listening to headphones at start of shift. Pt interacts with staff and other pts at times. Continues to have disorganized thinking. Pt pleasant and cooperative with care this shift. Took all meds. S/I, H/I: Pt denies A/VH: Pt denies Sleep: pt sleeping at this time ADL's: Independent with prompts and encouragement. Group attendance: Yes Were meds taken: Yes Any med S/E: None reported or observed Mental Status Exam Appearance: Disheveled, wears a long black dread lock wig and 1970's style jeans, has heavy dark eye makeup and smudged dark red lipstick. Eye contact: Good Behavior: Cooperative frequently uses radio headphones. Speech: Clear, audible, Mood: Irritable Affect: Congruent Thought process: Reality distortion Thought Content: varies tangential . Cognition: A/O X 4 Insight: Poor Judgment: Poor Interventions PRN's used: None Therapeutic interventions: 1:1 assessment, active listening, reality orientation, positive reinforcement, maintained safe therapeutic milieu, BP monitoring and education, medication administration/education/monitoring, Q15 min safety checks. Restraints/seclusion/emergency medication: None Justification of Continued Inpatient Treatment: Patient is gravely disabled, she is LPS conserved, she cannot return to [facility], she is awaiting placement by the public guardian.
[2019-10-12] MEDS: furosemide 20MG tablet PO SCH (07:31)
[2019-10-12] MEDS: benztropine 1mg tablet PO SCH ×2 (07:31→21:05)
[2019-10-12] MEDS: lisinopril 20mg tablet PO SCH (07:31)
[2019-10-12] MEDS: lurasidone 20mg tablet PO SCH (07:32)
[2019-10-12] MEDS: cloNIDine 0.1 mg tablet PO SCH ×2 (07:32→21:04)
[2019-10-12] MEDS: divalproex sod 125mg sprinkle cap PO SCH ×2 (07:32→21:03)
[2019-10-12] MEDS: propranolol 10mg tablet PO SCH ×3 (07:32→21:04)
--- NOTE | 2019-10-12 07:39 | NUR ---
PLACEMENT Called [facility]AD office to inquire about placement. Ct's packet is currently at [facility] in [facility]. DELMA Roldan
[2019-10-12 08:00] VITALS: BP 189/82
--- NOTE | 2019-10-12 11:42 | NUR ---
Nursing Progress Note Legal hold: LPS Client on involuntary status for GD Report received from ARPIT Elliott with use of SBAR Why are they here: 73 year old female with history of Schizophrenia. [facility] Patient was brought from [facility] because she her health has been steadily declining over the past six weeks and clinician at this facility established that patient needed a higher level of care. Worsening paranoid delusions. Patient has lost weight, is not engaging in any activities outside of her home, is refusing to wash her clothing, or take showers. She becomes irritable when confronted about her hygiene. She has been having decreased energy levels. Patient is not able to take care of basic needs by herself, [facility] evaluated the patient and placed her on a 5150 hold for gravely disabled. Assessment What has happened this shift: The patient was awake at change of shift and asking for her morning medications. She is in good spirits most of the day sometimes perseverating upon not being able to go "back home" to [facility]. She is eating well and taking in plenty of fluids. Awaiting placement at higher level of care. S/I, H/I: Pt denies A/VH: Pt denies Sleep: naps ADL's: Independent with prompts and encouragement. Group attendance: No Were meds taken: Yes Any med S/E: None reported or observed Mental Status Exam Appearance: Disheveled, wears a long black dread lock wig and 1970's style jeans, has heavy dark eye makeup and smudged dark red lipstick. Eye contact: Good Behavior: Cooperative Speech: Clear, audible, Mood: up beat with momentary sadness Affect: Congruent Thought process: Linear Thought Content: where she will live next Cognition: Alert Insight: Fair Judgment: Fair to good Interventions PRN's used: None Therapeutic interventions: 1:1 assessment, active listening, reality orientation, positive reinforcement, maintained safe therapeutic milieu, BP monitoring and education, medication administration/education/monitoring, Q15 min safety checks. Restraints/seclusion/emergency medication: None Justification of Continued Inpatient Treatment: Patient is gravely disabled, she is LPS conserved, she cannot return to [facility], she is awaiting placement by the public guardian.
[2019-10-12] MEDS: lurasidone 60mg tablet PO SCH (17:08)
[2019-10-12 20:00] VITALS: BP 151/81
[2019-10-12] MEDS: LORazepam 1 MG tablet PO SCH (21:04)
[2019-10-12] MEDS: oxybutynin 5mg tablet PO SCH (21:04)
--- NOTE | 2019-10-13 01:57 | NUR ---
Nursing Progress Note Legal hold: LPS Client on involuntary status for GD Report received from ARPIT Elliott with use of SBAR Why are they here: 73 year old female with history of Schizophrenia. [facility] Patient was brought from [facility] because she her health has been steadily declining over the past six weeks and clinician at this facility established that patient needed a higher level of care. Worsening paranoid delusions. Patient has lost weight, is not engaging in any activities outside of her home, is refusing to wash her clothing, or take showers. She becomes irritable when confronted about her hygiene. She has been having decreased energy levels. Patient is not able to take care of basic needs by herself, [facility] evaluated the patient and placed her on a 5150 hold for gravely disabled. Assessment What has happened this shift: Pt active on Unit. Often walking in halls sitting in chair in halls listening to headphones. Mood labile most of the time pleasant and cooperative but can became angry easily. Pt sitting in smith staff has been unable to convince her to go to bed. lAwaiting placement at higher level of care. S/I, H/I: Pt denies A/VH: Pt denies Sleep: naps ADL's: Independent with prompts and encouragement. Group attendance: No Were meds taken: Yes Any med S/E: None reported or observed Mental Status Exam Appearance: Disheveled, wears a long black dread lock wig and 1970's style jeans, has heavy dark eye makeup and smudged dark red lipstick. Eye contact: Good Behavior: Cooperative Speech: Clear, audible, Mood: up beat with momentary sadness Affect: Congruent Thought process: Linear Thought Content: where she will live next Cognition: Alert Insight: Fair Judgment: Fair to good Interventions PRN's used: None Therapeutic interventions: 1:1 assessment, active listening, reality orientation, positive reinforcement, maintained safe therapeutic milieu, BP monitoring and education, medication administration/education/monitoring, Q15 min safety checks. Restraints/seclusion/emergency medication: None Justification of Continued Inpatient Treatment: Patient is gravely disabled, she is LPS conserved, she cannot return to [facility], she is awaiting placement by the public guardian.
[2019-10-13] MEDS: cloNIDine 0.1 mg tablet PO SCH ×2 (07:32→21:01)
[2019-10-13] MEDS: benztropine 1mg tablet PO SCH ×2 (07:33→21:02)
[2019-10-13] MEDS: lisinopril 20mg tablet PO SCH (07:33)
[2019-10-13] MEDS: propranolol 10mg tablet PO SCH ×3 (07:33→21:02)
[2019-10-13] MEDS: furosemide 20MG tablet PO SCH (07:33)
[2019-10-13] MEDS: lurasidone 20mg tablet PO SCH (07:33)
[2019-10-13] MEDS: divalproex sod 125mg sprinkle cap PO SCH ×2 (07:34→21:01)
[2019-10-13 08:01] VITALS: BP 153/72
--- NOTE | 2019-10-13 15:41 | NUR ---
Nursing Progress Note: [facility] Legal hold: LPS Client on involuntary status for GD Report received from IVAN Nash with use of SBAR Why are they here: 73 year old female with history of Schizophrenia. Lived at [facility], decompensated. Patient was brought from [facility] because she her health has been steadily declining over the past six weeks and clinician at this facility established that patient needed a higher level of care. Worsening paranoid delusions. Patient has lost weight, is not engaging in any activities outside of her home, is refusing to wash her clothing, or take showers. She becomes irritable when confronted about her hygiene. She has been having decreased energy levels. Patient is not able to take care of basic needs by herself, [facility] evaluated the patient and placed her on a 5150 hold for gravely disabled. Assessment What has happened this shift: Pt up and talkative at change of shift. She is pleasant and bright, welcoming to oncoming staff. Often walking in halls sitting in chair in halls listening to headphones. After breakfast pt became very angry/yelling/disruptive. She was yelling expletives at this keno writer / runner and angry that she couldnt smoke a cigarette. Pt refuses nicotine samantha and patch. RN administered Ativan PRN X1. Awaiting placement at higher level of care. S/I, H/I: Pt denies A/VH: Pt denies Sleep: .75hrs NOC ADL's: Independent with prompts and encouragement Group attendance: No Were meds taken: Yes Any med S/E: None reported or observed Mental Status Exam Appearance: Disheveled, wears a long black dread lock wig and 1970's style jeans, has heavy dark eye makeup and smudged dark red lipstick Eye contact: Good Behavior: Labile, angry, yelling Speech: Clear, audible Mood: Irritable Affect: Congruent Thought process: wanting cigarettes Thought Content: where she will live & cigarettes Cognition: Alert Insight: poor Judgment: poor-fair Interventions PRN's used: Ativan X1 Therapeutic interventions: 1:1 assessment, active listening, reality orientation, positive reinforcement, maintained safe therapeutic milieu, BP monitoring and education, medication administration/education/monitoring, Q15 min safety checks. Restraints/seclusion/emergency medication: None Justification of Continued Inpatient Treatment: Patient is gravely disabled, she is LPS conserved, she cannot return to [facility], she is awaiting placement by the public guardian.
[2019-10-13] MEDS: lurasidone 60mg tablet PO SCH (18:01)
[2019-10-13 20:00] VITALS: BP 147/84
[2019-10-13] MEDS: LORazepam 1 MG tablet PO SCH (21:01)
[2019-10-13] MEDS: oxybutynin 5mg tablet PO SCH (21:02)
--- NOTE | 2019-10-13 23:36 | NUR ---
Nursing Progress Note: [facility] Legal hold: LPS Client on involuntary status for GD Report received from IVAN Boateng with use of SBAR Why are they here: 73 year old female with history of Schizophrenia. Lived at [facility], decompensated. Patient was brought from [facility] because she her health has been steadily declining over the past six weeks and clinician at this facility established that patient needed a higher level of care. Worsening paranoid delusions. Patient has lost weight, is not engaging in any activities outside of her home, is refusing to wash her clothing, or take showers. She becomes irritable when confronted about her hygiene. She has been having decreased energy levels. Patient is not able to take care of basic needs by herself, [facility] evaluated the patient and placed her on a 5150 hold for gravely disabled. Assessment What has happened this shift: Patient in her room listening to head phones at change of shift. She is labile this evening cussing at the head phones and yelling at staff. She is complaint for her HS medications. Patient in her room yelling after medication pass "I just want to go home." "I just want my radio from home." Patient is visually upset and was unable to be calmed by staff. Patient did eventually calm on her own. Compliant with all HS medications. S/I, H/I: Denies A/VH: Denies Sleep: See sleep assessment ADL's: Independent with prompts and encouragement Group attendance: No groups this shift Were meds taken: Yes Any med S/E: None reported or observed Mental Status Exam Appearance: Disheveled, wears a long black dread lock wig and 1970's style jeans, has heavy dark eye makeup and smudged dark red lipstick Eye contact: Good Behavior: Labile, angry, yelling Speech: Clear, audible Mood: Irritable Affect: Congruent Thought process: Wanting to go "home" Thought Content: Wanting to go "Home" and wanting a radio instead of head phones Cognition: Alert Insight: poor Judgment: poor-fair Interventions PRN's used: None Therapeutic interventions: 1:1 assessment, active listening, reality orientation, positive reinforcement, maintained safe therapeutic milieu, BP monitoring and education, medication administration/education/monitoring, Q15 min safety checks. Restraints/seclusion/emergency medication: None Justification of Continued Inpatient Treatment: Patient is gravely disabled, she is LPS conserved, she cannot return to [facility], she is awaiting placement by the public guardian.
[2019-10-14 07:00] VITALS: BP 149/57
[2019-10-14] MEDS: lisinopril 20mg tablet PO SCH (07:21)
[2019-10-14] MEDS: divalproex sod 125mg sprinkle cap PO SCH ×2 (07:21→20:51)
[2019-10-14] MEDS: benztropine 1mg tablet PO SCH ×2 (07:21→20:51)
[2019-10-14] MEDS: cloNIDine 0.1 mg tablet PO SCH ×2 (07:21→20:51)
[2019-10-14] MEDS: furosemide 20MG tablet PO SCH (07:22)
[2019-10-14] MEDS: propranolol 10mg tablet PO SCH ×3 (07:22→20:51)
[2019-10-14] MEDS: lurasidone 20mg tablet PO SCH (07:22)
[2019-10-14] MEDS: lurasidone 60mg tablet PO SCH (17:26)
--- NOTE | 2019-10-14 17:53 | NUR ---
Nursing Progress Note: [facility] Legal hold: LPS Client on involuntary status for GD Report received from IVAN Nash with use of SBAR Why are they here: 73 year old female with history of Schizophrenia. Lived at [facility], decompensated. Patient was brought from [facility] because she her health has been steadily declining over the past six weeks and clinician at this facility established that patient needed a higher level of care. Worsening paranoid delusions. Patient has lost weight, is not engaging in any activities outside of her home, is refusing to wash her clothing, or take showers. She becomes irritable when confronted about her hygiene. She has been having decreased energy levels. Patient is not able to take care of basic needs by herself, [facility] evaluated the patient and placed her on a 5150 hold for gravely disabled. Assessment What has happened this shift: Pt up sitting in her chair at change of shift. She continues to wear the same clothes and matted black wig. Pt heavily encouraged to shower today. She is guarded and irritable with staff today but does not require PRNs at this time. When offered medications she angrily reports that this resume writer did not bring her medications at the correct time but that she would take them anyways. Pt cantankerous throughout the day and unable to be pleased. S/I, H/I: Pt denies A/VH: Pt denies Sleep: 6.5 hrs NOC ADL's: Independent with prompts and encouragement Group attendance: Yes Were meds taken: Yes Any med S/E: None reported or observed Mental Status Exam Appearance: Disheveled, wears a long black dread lock wig and 1970's style jeans, has heavy dark eye makeup and smudged dark red lipstick Eye contact: Good Behavior: Labile, angry, yelling Speech: Clear, audible Mood: Irritable Affect: Congruent Thought process: wanting cigarettes Thought Content: where she will live & cigarettes Cognition: Alert Insight: poor Judgment: poor-fair Interventions PRN's used: Ativan X1 Therapeutic interventions: 1:1 assessment, active listening, reality orientation, positive reinforcement, maintained safe therapeutic milieu, BP monitoring and education, medication administration/education/monitoring, Q15 min safety checks. Restraints/seclusion/emergency medication: None Justification of Continued Inpatient Treatment: Patient is gravely disabled, she is LPS conserved, she cannot return to [facility], she is awaiting placement by the public guardian.
[2019-10-14 20:00] VITALS: BP 105/69
[2019-10-14] MEDS: LORazepam 1 MG tablet PO SCH (20:51)
[2019-10-14] MEDS: oxybutynin 5mg tablet PO SCH (20:51)
--- NOTE | 2019-10-15 04:51 | NUR ---
Nursing Progress Note: [facility] Legal hold: LPS Client on involuntary status for GD Report received from IVAN Haque, with use of SBAR Why are they here: 73 year old female with history of Schizophrenia. Lived at [facility], decompensated. Patient was brought from [facility] because she her health has been steadily declining over the past six weeks and clinician at this facility established that patient needed a higher level of care. Worsening paranoid delusions. Patient has lost weight, is not engaging in any activities outside of her home, is refusing to wash her clothing, or take showers. She becomes irritable when confronted about her hygiene. She has been having decreased energy levels. Patient is not able to take care of basic needs by herself, [facility] evaluated the patient and placed her on a 5150 hold for gravely disabled. Assessment What has happened this shift: Patient laying in bed asleep at the beginning of shift. She got up for HS snack and medication pass. Patient pleasant and cooperative with all care; compliant with all medication. Patient offered by IVAN and this video game script writer but refused shower this shift. Patient hygiene is poor and clothing soiled from food and drinks. Patient appears drowsy this shift as she needed woken for snack and she continued to fight sleep while in the group room. Shortly after HS medication she went back to bed. S/I, H/I: Denies A/VH: Denies Sleep: See sleep assessment ADL's: Independent with prompting Group attendance: No groups this shift Were meds taken: Yes Any med S/E: None reported or observed Mental Status Exam Appearance: Disheveled, wears a long black dread lock wig and 1970's style jeans, has heavy dark eye makeup and smudged dark red lipstick, soiled green scrubs Eye contact: Good Behavior: Pleasant, tired Speech: Clear, steady, audible Mood: Drowsy Affect: Congruent Thought process: Circumstantial Thought Content: Wanting to go "Home" Cognition: Alert Insight: poor Judgment: poor-fair Interventions PRN's used: None Therapeutic interventions: 1:1 assessment, active listening, reality orientation, positive reinforcement, maintained safe therapeutic milieu, BP monitoring and education, medication administration/education/monitoring, Q15 min safety checks. Restraints/seclusion/emergency medication: None Justification of Continued Inpatient Treatment: Patient is gravely disabled, she is LPS conserved, she cannot return to [facility], she is awaiting placement by the public guardian.
[2019-10-15 07:46] VITALS: BP 144/83
--- NOTE | 2019-10-15 07:47 | NUR ---
PLACEMENT TAD office left message stating Ct has been accepted at [facility]. A 602 was faxed over. Supervisor Dog License Officer will complete it and fax back. TRENT Streeter, did not know when Ct will be transferred. DELMA Roldan
[2019-10-15] MEDS: furosemide 20MG tablet PO SCH (07:56)
[2019-10-15] MEDS: lurasidone 20mg tablet PO SCH (07:56)
[2019-10-15] MEDS: propranolol 10mg tablet PO SCH ×3 (07:56→20:24)
[2019-10-15] MEDS: benztropine 1mg tablet PO SCH ×2 (07:56→20:24)
[2019-10-15] MEDS: lisinopril 20mg tablet PO SCH (07:57)
[2019-10-15] MEDS: divalproex sod 125mg sprinkle cap PO SCH ×2 (07:59→20:23)
[2019-10-15] MEDS: cloNIDine 0.1 mg tablet PO SCH ×3 (08:00→16:09)
[2019-10-15] MEDS ORDERED: tuberculin, purif. prot. deriv. 5 units/0.1ml ID ONE (09:25)
--- NOTE | 2019-10-15 13:47 | NUR ---
PLACEMENT Ct has been accepted at [facility] near [place]. Faxed completed 602 and chest x-ray back to TAD office. DELMA Roldan
--- NOTE | 2019-10-15 16:00 | NUR ---
Nursing Progress Note: Legal hold: LPS Client on involuntary status for GD Report received from IVAN Nash with use of SBAR Why are they here: 73 year old female with history of Schizophrenia. [facility] was brought from [facility] because she her health has been steadily declining over the past six weeks and clinician at this facility established that patient needed a higher level of care. Worsening paranoid delusions. Patient has lost weight, is not engaging in any activities outside of her home, is refusing to wash her clothing, or take showers. She becomes irritable when confronted about her hygiene. She has been having decreased energy levels. Patient is not able to take care of basic needs by herself, [facility] her on [facility] 5150 hold for gravely disabled. Assessment What has happened this shift: Patient up in visible this morning waiting for her morning coffee. Patient was pleasant, and appeared to be less hyper vigilant and suspicious about things. She did not question her medication. Patient remained pleasant for most of the day. At one point after lunch she was in her room interacting with her roommate and when this nurse brought up the difficulty of moving placement from [facility] to someplace else, actually a unit down in [facility], patient became upset and stated it was scary. Patient remained upset for about 20 minutes but pulled it back together pretty quickly. Patient concerned about being able to smoke and drink regular coffee. S/I, H/I: Pt denies A/VH: Pt denies Sleep: no napping today ADL's: Independent with prompts and encouragement Group attendance: Yes Were meds taken: Yes Any med S/E: None reported or observed Mental Status Exam Appearance: Disheveled, wears a long black dread lock wig and 1970's style jeans, has heavy dark eye makeup and smudged dark red lipstick Eye contact: Good Behavior: mostly pleasant today Speech: Clear, audible Mood: pleasant, upset and scared at one point while discussing d/c to [facility] Affect: Congruent Thought process: perseverating: wanting cigarettes and regular coffee Thought Content: where she will live & cigarettes Cognition: Alert Insight: poor Judgment: poor-fair Interventions PRN's used: Therapeutic interventions: 1:1 assessment, active listening, reality orientation, positive reinforcement, maintained safe therapeutic milieu, BP monitoring and education, medication administration/education/monitoring, Q15 min safety checks. Restraints/seclusion/emergency medication: None Justification of Continued Inpatient Treatment: Patient is gravely disabled, she is LPS conserved, she cannot return to [facility], she is awaiting placement by the public guardian.
[2019-10-15] MEDS: lurasidone 60mg tablet PO SCH (17:43)
[2019-10-15 20:00] VITALS: BP 109/74
[2019-10-15] MEDS: LORazepam 1 MG tablet PO SCH (20:24)
[2019-10-15] MEDS: oxybutynin 5mg tablet PO SCH (20:24)
--- NOTE | 2019-10-16 03:34 | NUR ---
Nursing Progress Note: Legal hold: LPS Client on involuntary status for GD Report received from RN, with use of SBAR Why are they here: 73 year old female with history of Schizophrenia. Lived at [facility], decompensated. Patient was brought from [facility] because she her health has been steadily declining over the past six weeks and clinician at this facility established that patient needed a higher level of care. Worsening paranoid delusions. Patient has lost weight, is not engaging in any activities outside of her home, is refusing to wash her clothing, or take showers. She becomes irritable when confronted about her hygiene. She has been having decreased energy levels. Patient is not able to take care of basic needs by herself, [facility] evaluated the patient and placed her on a 5150 hold for gravely disabled. Assessment What has happened this shift: Patient observed socializing appropriately with peers at the beginning of shift. Patient pleasant and cooperative with all care this shift; compliant with all medications. Patient appears fearful of moving to [facility] and stated, "I do not want to be put in seclusion." Pt was easily redirected with reassurance that seclusion is typically last resort to deescalate a situation. Pt mentioned assistive living in [place] that she wanted to try as she is aware she is unable to return to [facility]. Later in the shift patient became fixated on her personal radio and became agitated with the bulkiness of the unit headphones and started yelling provocative comments such as, "stupid nigger." Pt was able to be redirected with explanation that her choice of words were not appropriate for the unit. With each time this typewriter operator automatic visited with the pt she voiced her appreciation for checking on her and spending time to talk with her. Several times this shift the pt described herself as a "loner." She also explained to this typewriter operator automatic that she becomes "easily depressed when people are mean to me." She was assured that staff is here to help her through her emotions and again pt expressed her appreciation with a smile. S/I, H/I: Denies A/VH: Denies Sleep: See sleep assessment ADL's: Independent with prompting Group attendance: No groups this shift Were meds taken: Yes Any med S/E: None reported or observed Mental Status Exam Appearance: Disheveled, wears a long black dread lock wig and 1970's style jeans, has heavy dark eye makeup and smudged dark red lipstick Eye contact: Good Behavior: Pleasant, socializing and listening to headphones Speech: Clear, steady, audible Mood: fearful, anxious Affect: Congruent Thought process: Perseverating Thought Content: Personal radio and not wanting to D/C to [facility] Cognition: Alert Insight: poor Judgment: poor-fair Interventions PRN's used: None Therapeutic interventions: 1:1 assessment, active listening, reality orientation, positive reinforcement, maintained safe therapeutic milieu, BP monitoring and education, medication administration/education/monitoring, Q15 min safety checks. Restraints/seclusion/emergency medication: None Justification of Continued Inpatient Treatment: Patient is gravely disabled, she is LPS conserved, she cannot return to [facility], she is awaiting placement by the public guardian.
[2019-10-16 07:30] VITALS: BP 150/66
[2019-10-16] MEDS: benztropine 1mg tablet PO SCH ×2 (07:45→20:53)
[2019-10-16] MEDS: divalproex sod 125mg sprinkle cap PO SCH ×2 (07:47→20:53)
[2019-10-16] MEDS: lurasidone 20mg tablet PO SCH (07:47)
[2019-10-16] MEDS: furosemide 20MG tablet PO SCH (07:47)
[2019-10-16] MEDS: propranolol 10mg tablet PO SCH ×3 (07:47→20:53)
[2019-10-16] MEDS: cloNIDine 0.1 mg tablet PO SCH ×3 (07:47→16:20)
[2019-10-16] MEDS: lisinopril 20mg tablet PO SCH (07:51)
[2019-10-16] MEDS ORDERED: paliperidone palmitate inj 234 MG/1.5 ML SYRINGE IM ONE (10:55)
--- NOTE | 2019-10-16 14:39 | NUR ---
Nursing Progress Note: [facility] Legal hold:LPS Client on voluntary/involuntary status for GD Report received from nurse with use of AFUA Godoy RN Why are they here: patient reported to have been steadily declining over the past six weeks prior to admission with worsening paranoid delusions. Patient has lost weight, not engaging in any activities outside of her home, not bathing, and refusing to wash her clothing. She would become irritable when confronted about hygiene and strongly encouraged to complete these activities. Assessment What has happened this shift: Patient was in her room, standing by her bed at change of shift. Per PCT, Mehran, patient refused to allow him to take her morning vital signs. Upon first interaction with patient, she states get them in here to do my vital signs, I am not going to wait much longer. Was compliant with VS but then states That Mehran, he caused my leg to swell because he wraps that thing (BP cuff) around my leg. Began to demand her medications at 0730, there was a delay due to low stock on Depakote. When approaching her with meds, she demanded the nurse go into her room and wait for her, when this request was not done, she became very agitated stating Quit invading my space, hurry up, you are the meanest nurse here. Administered medications an then very calmly and politely said thank you. While in room started a verbal escalation with roommate. When confronted, she began yelling, not allowing anyone to speak statingget out of my room, leave me alone. When addressed by her name she replies dont call me that, that is not my name. Invega S[employer] injection given. S/I, H/I: Denies, no symptoms observed A/VH: Denies, appears to be responding to internal stimulus Sleep: 2.25. Sitting in chair throughout the day ADL's: Showered with much encouragement, bed linens changes Group attendance: No Were meds taken: Yes with minimal difficulty Any med S/E: shuffling gait, (no new symptoms) Mental Status Exam Appearance: dishelved, dirty green scrubs, matted wig, smeared make up Eye contact: occasional direct, then looks away Behavior: Restless, gaurded Speech: slurred, normal volume, normal rate Mood: Labile, turned in head phones and stated I turned them in, so when I am ready I want them back when told she would have to share, she became very angry and agitated Affect: congruent with mood Thought process: associative looseness I want my meds, get away from me Thought Content: difficult to determine, circumstantial to events (Headphones, meds, meals) Cognition: Oriented to Person Insight: Poor Judgment: Poor Interventions PRN's used: Therapeutic intervention: Provided a safe and therapeutic environment, encouraged to maintain own ADLs and maintained fall precautions, monitored behaviors and need for intervention, provided clear and simple directions, and maintained Q 15 min safety checks. Restraints/seclusion/emergency medication: N/A Justification of Continued Inpatient Treatment: Patient has been LPS conserved due to grave disability and inability to provide for her own basic needs. Continues to demonstrate poor impulse control, and labile mood.
[2019-10-16] MEDS: lurasidone 60mg tablet PO SCH (17:10)
[2019-10-16 20:00] VITALS: BP 174/67
[2019-10-16] MEDS: LORazepam 1 MG tablet PO SCH (20:53)
[2019-10-16] MEDS: oxybutynin 5mg tablet PO SCH (20:53)
--- NOTE | 2019-10-17 04:53 | NUR ---
Nursing Progress Note: Legal hold: LPS Client on involuntary status for GD Report received from IVAN Rivera, with use of SBAR Why are they here: 73 year old female with history of Schizophrenia. [facility] Patient was brought from [facility] because she her health has been steadily declining over the past six weeks and clinician at this facility established that patient needed a higher level of care. Worsening paranoid delusions. Patient has lost weight, is not engaging in any activities outside of her home, is refusing to wash her clothing, or take showers. She becomes irritable when confronted about her hygiene. She has been having decreased energy levels. Patient is not able to take care of basic needs by herself, [facility] evaluated the patient and placed her on a 5150 hold for gravely disabled. Assessment What has happened this shift: Patient sitting in bedside chair listening to music at the beginning of shift. Pt explains difficult day stating she was sat where she felt she was "mockery." She c/o not being able to eat her dinner due to being upset. She also described herself as "not doing well at all" and continued to ask, "how would you feel if your family just dumped you off at [facility]?" Pt was easily settled by providing 1:1 and this staff writer just listening to her vent in which she expressed gratitude. Later she came out of her room for HS snack and had moments of outbursts because staff taking too long to get what she'd asked for but she was easily redirected when asked to lower her tone and was provided what she'd asked for. Pt went back to her room to listen to her headset and when her midnight dose of clonidine she became escalated once again and refused the medication, stating, "I'm going to talk to Dr. Ponce about this. I am not going to take it. You can go now." Her voice escalated during the conversation and when asked to lower her voice she dismissed this staff writer. Pt continues to voice feelings of [place] Stating "I don't want to go anywhere that they limit my cigarettes; I don't want to live like that." S/I, H/I: Denies A/VH: Denies Sleep: See sleep assessment ADL's: Independent with prompting Group attendance: No groups this shift Were meds taken: Refused Clonidine Any med S/E: None reported or observed Mental Status Exam Appearance: Disheveled, wears a long black dread lock wig and 1970's style jeans, has heavy dark eye makeup and smudged dark red lipstick Eye contact: Good Behavior: Isolating; listening to headphones in her bedroom Speech: Clear, steady, audible Mood: "not good at all" Affect: Labile Thought process: Perseverating Thought Content: Personal radio, not wanting to D/C to [place], where she was sat at dinner time Cognition: Alert Insight: poor Judgment: poor-fair Interventions PRN's used: None Therapeutic interventions: 1:1 assessment, active listening, reality orientation, positive reinforcement, maintained safe therapeutic milieu, BP monitoring and education, medication administration/education/monitoring, Q15 min safety checks. Restraints/seclusion/emergency medication: None Justification of Continued Inpatient Treatment: Patient is gravely disabled, she is LPS conserved, she cannot return to [facility], she is awaiting placement by the public guardian.
[2019-10-17] MEDS: benztropine 1mg tablet PO SCH ×2 (07:47→22:16)
[2019-10-17] MEDS: cloNIDine 0.1 mg tablet PO SCH ×3 (07:47→16:06)
[2019-10-17] MEDS: divalproex sod 125mg sprinkle cap PO SCH ×2 (07:49→22:13)
[2019-10-17] MEDS: furosemide 20MG tablet PO SCH (07:49)
[2019-10-17] MEDS: propranolol 10mg tablet PO SCH ×3 (07:49→22:13)
[2019-10-17 07:50] VITALS: BP 163/76
[2019-10-17] MEDS: lisinopril 20mg tablet PO SCH (07:50)
[2019-10-17] MEDS: lurasidone 20mg tablet PO SCH (07:51)
--- NOTE | 2019-10-17 14:03 | NUR ---
Reassessment: Pt with 25% PO intake at dinner last night however still averaging 75-100% meeting nutrient needs. [facility] 10/16. No nutrition diagnosis at this time. Will continue to follow. Rec: 1. continue regular diet 2. bowel care as needed 3. wt per rx Addendum: 10/17/19 at [address] Amended: Links added.
[2019-10-17 15:55] VITALS: BP 172/92
[2019-10-17 16:28] VITALS: BP_SYST 172
[2019-10-17] MEDS: lurasidone 60mg tablet PO SCH (17:57)
--- NOTE | 2019-10-17 18:02 | NUR ---
Nursing Progress Note: Legal hold: LPS Client on involuntary status for GD Report received from noc RN with use of SBAR Why are they here: 73 year old female with history of Schizophrenia. Lived at [facility], decompensated. Patient was brought from [facility] because she her health has been steadily declining over the past six weeks and clinician at this facility established that patient needed a higher level of care. Worsening paranoid delusions. Patient has lost weight, is not engaging in any activities outside of her home, is refusing to wash her clothing, or take showers. She becomes irritable when confronted about her hygiene. She has been having decreased energy levels. Patient is not able to take care of basic needs by herself, [facility] evaluated the patient and placed her on a 5150 hold for gravely disabled. Assessment What has happened this shift: Pt asked for medicaitons right away this am and took a nap after breakfast. She continues throughout the day with pressing questions about her medications. She sat in hallway chair with headphones and group room watching tv. Pt denies SI/HI/AH/VH. S/I, H/I: Denies A/VH: Denies Sleep: [facility]. Naps during the day. ADL's: Independent with prompting Group attendance: No groups this shift Were meds taken: Yes Any med S/E: None reported or observed Mental Status Exam Appearance: Disheveled, wears a long black dread lock wig and 1970's style jeans, has heavy dark eye makeup and smudged dark red lipstick Eye contact: Good Behavior: Isolating; listening to headphones in her bedroom Speech: Clear, steady, audible Mood: Labile Affect: Flat Thought process: Perseverating Thought Content: Personal radio, not wanting to D/C to [facility], where she was sat at dinner time Cognition: Alert Insight: poor Judgment: poor-fair Interventions PRN's used: None Therapeutic interventions: 1:1 assessment, active listening, reality orientation, positive reinforcement, maintained safe therapeutic milieu, BP monitoring and education, medication administration/education/monitoring, Q15 min safety checks. Restraints/seclusion/emergency medication: None Justification of Continued Inpatient Treatment: Patient is gravely disabled, she is LPS conserved, she cannot return to [facility], she is awaiting placement by the public guardian.
[2019-10-17 20:00] VITALS: BP 122/73
[2019-10-17] MEDS: oxybutynin 5mg tablet PO SCH (22:13)
[2019-10-17] MEDS: LORazepam 1 MG tablet PO SCH (22:14)
[2019-10-18] MEDS: cloNIDine 0.1 mg tablet PO SCH ×3 (01:05→17:09)
--- NOTE | 2019-10-18 05:29 | NUR ---
Nursing Progress Note: Legal hold: LPS Client on involuntary status for GD Report received from IVAN Rivera, with use of SBAR Why are they here: 73 year old female with history of Schizophrenia. Lived at [facility], decompensated. Patient was brought from [facility] because she her health has been steadily declining over the past six weeks and clinician at this facility established that patient needed a higher level of care. Worsening paranoid delusions. Patient has lost weight, is not engaging in any activities outside of her home, is refusing to wash her clothing, or take showers. She becomes irritable when confronted about her hygiene. She has been having decreased energy levels. Patient is not able to take care of basic needs by herself, [facility] evaluated the patient and placed her on a 5150 hold for gravely disabled. Assessment What has happened this shift: Patient in the community room socializing appropriately with peers and coddling baby doll at the beginning of shift. Pt continued to visit with peers and fell asleep in community room before HS snack. Pt encouraged to go into her room to sleep and she was pleasant and cooperative and observed asleep again before HS snack. Pt later woke by this underwriter solicitation director for medications and she remained pleasant and cooperative; compliant with all meds and thankful for the coffee and yogurt provided at this time. She sat out in the hallway chair and briefly listened to music before falling asleep. Pt awoke shortly after midnight and approached this underwriter solicitation director requesting her scheduled clonidine and went back to her room to sleep. S/I, H/I: Denies A/VH: Denies Sleep: See sleep assessment ADL's: Independent with prompting Group attendance: No groups this shift Were meds taken: Yes Any med S/E: None reported or observed Mental Status Exam Appearance: Wears a long black dread lock wig and 1970's style jeans Eye contact: Good Behavior: Pleasant, cooperative and socializing Speech: Clear, steady, audible Mood: "good" Affect: Bright Thought process: Circumstantial Thought Content: Baby doll Cognition: Alert Insight: poor Judgment: poor-fair Interventions PRN's used: None Therapeutic interventions: 1:1 assessment, active listening, reality orientation, positive reinforcement, maintained safe therapeutic milieu, BP monitoring and education, medication administration/education/monitoring, Q15 min safety checks. Restraints/seclusion/emergency medication: None Justification of Continued Inpatient Treatment: Patient is gravely disabled, she is LPS conserved, she cannot return to [facility], she is awaiting placement by the public guardian.
[2019-10-18] MEDS: furosemide 20MG tablet PO SCH (07:34)
[2019-10-18] MEDS: benztropine 1mg tablet PO SCH ×2 (07:35→20:10)
[2019-10-18] MEDS: propranolol 10mg tablet PO SCH ×3 (07:35→20:11)
[2019-10-18] MEDS: lisinopril 20mg tablet PO SCH (07:35)
[2019-10-18] MEDS: divalproex sod 125mg sprinkle cap PO SCH ×2 (07:36→20:11)
[2019-10-18] MEDS: lurasidone 20mg tablet PO SCH (07:36)
[2019-10-18 07:58] VITALS: BP 127/64
--- NOTE | 2019-10-18 15:19 | NUR ---
Nursing Progress Note: Legal hold: LPS Client on involuntary status for GD Report received from CRN with use of SBAR Why are they here: 73 year old female with history of Schizophrenia. Lived at [facility], decompensated. Patient was brought from [facility] because she her health has been steadily declining over the past six weeks and clinician at this facility established that patient needed a higher level of care. Worsening paranoid delusions. Patient has lost weight, is not engaging in any activities outside of her home, is refusing to wash her clothing, or take showers. She becomes irritable when confronted about her hygiene. She has been having decreased energy levels. Patient is not able to take care of basic needs by herself, [facility] evaluated the patient and placed her on a 5150 hold for gravely disabled. Assessment What has happened this shift: Received Pt in bed who appeared to be resting w/o distress at change of shift. Pt awoke and requested meds before breakfast and some snacks. Pt irritable and demanding. Ate breakfast and took AM meds. Pt mildly warmer to this RN as day progressed. Did not have conflict with other Pts today. Enjoys sitting in smith and listening to music with headphones. Sad resting affect and irritable mood throughout day. Has difficulty being around people at times and abrasive speech caused others to avoid her. Enjoyed snack time and complaining today. S/I, H/I: Denies A/VH: Denies Sleep: Short nap in AM ADL's: Independent, needs prompting Group attendance: Yes Were meds taken: Yes Any med S/E: None reported or observed Mental Status Exam Appearance: Green scrub pants, jacket from home. Wearing thick red lip stick that is smudged around her lips as well. Eye contact: Good Behavior: Irritable and demanding Speech: Clear Mood: Labile Affect: Flat Thought process: Perseverating on snacks Thought Content: Snacks being poor and stating opposing opinions Cognition: Alert Insight: poor Judgment: poor Interventions PRN's used: None Therapeutic interventions: 1:1 assessment, active listening, reality orientation, positive reinforcement, maintained safe therapeutic milieu, BP monitoring and education, medication administration/education/monitoring, Q15 min safety checks. Restraints/seclusion/emergency medication: None Justification of Continued Inpatient Treatment: Patient is gravely disabled, she is LPS conserved, she cannot return to [facility], she is awaiting placement by the public guardian.
[2019-10-18] MEDS: lurasidone 60mg tablet PO SCH (17:35)
[2019-10-18 19:33] VITALS: BP 145/65
[2019-10-18] MEDS: oxybutynin 5mg tablet PO SCH (20:10)
[2019-10-18] MEDS: LORazepam 1 MG tablet PO SCH (20:15)
--- NOTE | 2019-10-18 23:49 | NUR ---
Nursing Progress Note: Legal hold: LPS Client on involuntary status for GD Report received from IVAN Boateng, with use of SBAR Why are they here: 73 year old female with history of Schizophrenia. Lived at [facility], decompensated. Patient was brought from [facility] because she her health has been steadily declining over the past six weeks and clinician at this facility established that patient needed a higher level of care. Worsening paranoid delusions. Patient has lost weight, is not engaging in any activities outside of her home, is refusing to wash her clothing, or take showers. She becomes irritable when confronted about her hygiene. She has been having decreased energy levels. Patient is not able to take care of basic needs by herself, [facility] evaluated the patient and placed her on a 5150 hold for gravely disabled. Assessment What has happened this shift: Patient isolated to her room for entire shift. pt was angry and arguing with people who aren't there. pt refused ativan, stating, "I don't need that shit." pt's roommate was switched due to her pt not being able to tolerate her. S/I, H/I: Denies A/VH: Denies Sleep: See sleep assessment ADL's: Independent with prompting Group attendance: No groups this shift Were meds taken: Yes Any med S/E: None reported or observed Mental Status Exam Appearance: dirty wig and jeans Eye contact: poor Behavior: argumentative Speech: mumbled Mood: refused to answer Affect: flat Thought process: Circumstantial Thought Content: anger Cognition: Alert Insight: poor Judgment: poor-fair Interventions PRN's used: None Therapeutic interventions: 1:1 assessment, active listening, reality orientation, positive reinforcement, maintained safe therapeutic milieu, BP monitoring and education, medication administration/education/monitoring, Q15 min safety checks. Restraints/seclusion/emergency medication: None Justification of Continued Inpatient Treatment: Patient is gravely disabled, she is LPS conserved, she cannot return to [facility], she is awaiting placement by the public guardian.
[2019-10-19] MEDS: furosemide 20MG tablet PO SCH (07:32)
[2019-10-19] MEDS: benztropine 1mg tablet PO SCH ×2 (07:33→20:48)
[2019-10-19] MEDS: cloNIDine 0.1 mg tablet PO SCH ×3 (07:33→17:36)
[2019-10-19] MEDS: propranolol 10mg tablet PO SCH ×3 (07:33→20:48)
[2019-10-19] MEDS: lisinopril 20mg tablet PO SCH (07:33)
[2019-10-19] MEDS: lurasidone 20mg tablet PO SCH (07:33)
[2019-10-19] MEDS: divalproex sod 125mg sprinkle cap PO SCH ×2 (07:34→20:48)
[2019-10-19 08:12] VITALS: BP 155/87
--- NOTE | 2019-10-19 10:57 | NUR ---
PLACEMENT Called TAD office to get an update. Ct has been accepted at [facility] and TAD office is waiting to hear about a transport date. DELMA Roldan
[2019-10-19 12:58] VITALS: BP 148/71
--- NOTE | 2019-10-19 15:32 | NUR ---
Nursing Progress Note: Legal hold: LPS Client on involuntary status for GD Report received from Kilo Ellis RN, with use of SBAR Why are they here: 73 year old female with history of Schizophrenia. [facility] Patient was brought from [facility] because she her health has been steadily declining over the past six weeks and clinician at this facility established that patient needed a higher level of care. Worsening paranoid delusions. Patient has lost weight, is not engaging in any activities outside of her home, is refusing to wash her clothing, or take showers. She becomes irritable when confronted about her hygiene. She has been having decreased energy levels. Patient is not able to take care of basic needs by herself, [facility] evaluated the patient and placed her on a 5150 hold for gravely disabled. Assessment What has happened this shift: Pt was pleasant and in a good mood this morning. She expressed appreciation to this RN for being quiet and calm in the morning. Pt states she prefers darkness and quietness when she first gets up. Pt stated this is probably one of the main reasons why her roommate was moved as her previous roommate would get up and turn all of the lights on in the room. Pt states she really likes her new roommate. Pt enjoys drinking coffee all day. Pt has been cooperative with VS/BP monitoring though still expresses some irritation at how frequently we have it check her BP. Wound care nurse came today to trim pt's toenails. Pt was agreeable with some encouragement and allowed toenails to be trimmed. Pt speaks in a little girl-like voice and exhibits some childlike behaviors. Pt needs prompting and encouragement in personal hygiene and ADLs. Pt is perseverative in her thinking at times as well as circumstantial; pt will take a long time to describe something or express a thought, pt repeats things frequently throughout the day. Pt is cooperative with her medications. Pt will be having her Depakote level rechecked this evening at 1800. S/I, H/I: Pt denies A/VH: Pt denies Sleep: Pt slept 7.25 hours per noc shift report ADL's: Independent with prompting and encouragement Group attendance: Yes Were meds taken: Yes Any med S/E: None reported or observed Mental Status Exam Appearance: Long black, dread-lock wig and jeans Eye contact: Good Behavior: Pleasant, cooperative Speech: Clear, audible, high-pitched little girl-like voice Mood: Good Affect: Blunted Thought process: Circumstantial, perseverative Thought Content: Happy she got her meds before breakfast and her nurse was quiet, happy with her new roommate, happy with having her toenails trimmed, her BP is checked to often. Cognition: A/O X 3 Insight: Poor Judgment: Fair Interventions PRN's used: None Therapeutic interventions: 1:1 assessment, active listening, therapeutic conversation, encouragement to shower/perform personal hygiene, positive reinforcement, maintained safe therapeutic milieu, BP monitoring and education, medication administration/education/monitoring, Q15 min safety checks. Restraints/seclusion/emergency medication: None Justification of Continued Inpatient Treatment: Patient is gravely disabled, she is LPS conserved, she cannot return to [facility], she has been accepted at [facility] and awaiting transportation arrangements by public guardian.
[2019-10-19 17:35] VITALS: BP 166/79
[2019-10-19] MEDS: lurasidone 60mg tablet PO SCH (17:36)
[2019-10-19 20:00] VITALS: BP 156/78
[2019-10-19] MEDS: oxybutynin 5mg tablet PO SCH (20:48)
[2019-10-19] MEDS: LORazepam 1 MG tablet PO SCH (20:49)
[2019-10-20] MEDS: cloNIDine 0.1 mg tablet PO SCH ×3 (00:35→17:08)
--- NOTE | 2019-10-20 05:04 | NUR ---
Nursing Progress Note: Legal hold: LPS Client on involuntary status for GD Report received from IVAN Boateng, with use of SBAR Why are they here: 73 year old female with history of Schizophrenia. Lived at [facility], decompensated. Patient was brought from [facility] because she her health has been steadily declining over the past six weeks and clinician at this facility established that patient needed a higher level of care. Worsening paranoid delusions. Patient has lost weight, is not engaging in any activities outside of her home, is refusing to wash her clothing, or take showers. She becomes irritable when confronted about her hygiene. She has been having decreased energy levels. Patient is not able to take care of basic needs by herself, [facility] evaluated the patient and placed her on a 5150 hold for gravely disabled. Assessment What has happened this shift: Patient observed sitting in her bedside chair listening to music at the beginning of shift. Later observed eating HS snack in group room. Pt expressed gratitude for the nurse who cut her toenails. Pt enjoyed conversing with staff throughout the shift. She continues to acknowledge plan to D/C to [facility] in [facility] appearing a little more bright about the plan but would continues to express she'd rather try the a facility in [place]. Pt was talking with this advertising copywriter and she began talking about her double mastectomy and showed this advertising copywriter her incision [place] and talked about the "beautiful work" her doctor was able to do. Pt expressed happiness with her roommate and observed trying to get roommate a snack. Patient briefly observed sleeping in her bed and later moved out to hallway chair. S/I, H/I: Denies A/VH: Denies Sleep: See sleep assessment ADL's: Independent with prompting Group attendance: No groups this shift Were meds taken: Yes Any med S/E: None reported or observed Mental Status Exam Appearance: Wears a long black dread lock wig and 1970's style jeans Eye contact: Good Behavior: Pleasant, cooperative and socializing Speech: Clear, steady, audible Mood: Good Affect: Bright Thought process: Circumstantial Thought Content: Happy for her trimmed toenails Cognition: Alert Insight: poor Judgment: poor-fair Interventions PRN's used: None Therapeutic interventions: 1:1 assessment, active listening, reality orientation, positive reinforcement, maintained safe therapeutic milieu, BP monitoring and education, medication administration/education/monitoring, Q15 min safety checks. Restraints/seclusion/emergency medication: None Justification of Continued Inpatient Treatment: Patient is gravely disabled, she is LPS conserved, she cannot return to [facility], she is awaiting placement by the public guardian.
[2019-10-20] MEDS: furosemide 20MG tablet PO SCH (07:44)
[2019-10-20] MEDS: lisinopril 20mg tablet PO SCH (07:45)
[2019-10-20] MEDS: propranolol 10mg tablet PO SCH ×3 (07:45→19:46)
[2019-10-20] MEDS: benztropine 1mg tablet PO SCH ×2 (07:46→19:46)
[2019-10-20] MEDS: divalproex sod 125mg sprinkle cap PO SCH ×2 (07:47→19:46)
[2019-10-20 08:00] VITALS: BP 122/64
[2019-10-20] MEDS: lurasidone 20mg tablet PO SCH (08:00)
[2019-10-20] MEDS ORDERED: OXYB5TAB16 PO (11:47)
[2019-10-20] MEDS ORDERED: FURO20TA4 PO (11:47)
[2019-10-20] MEDS ORDERED: BENZ1TAB7 PO (11:47)
[2019-10-20] MEDS ORDERED: LURA60TA2 PO (11:47)
[2019-10-20] MEDS ORDERED: PROP10TA10 PO (11:47)
[2019-10-20] MEDS ORDERED: NICO-668 BC (11:47)
[2019-10-20] MEDS ORDERED: DIVA125C2 PO ×2 (11:47)
[2019-10-20] MEDS ORDERED: CLON0.1T2 PO (11:47)
[2019-10-20] MEDS ORDERED: LISI-600 PO (11:47)
[2019-10-20] MEDS ORDERED: hyDRALAzine tablet PO (11:47)
[2019-10-20] MEDS ORDERED: LURA20TA PO (11:47)
--- NOTE | 2019-10-20 12:15 | NUR ---
PUBLIC GUARDIAN Called Ct's PG, Maru (ph# [phone]), to inquire about Ct's belongings. She reported some of Ct's belongings will be placed in storage, however, all music listening devices will go with her. She reported Ct is going to [facility] in [place] which is in [facility] and is a Board and Care/Assisted Living. Pool Servicer will inform Ct. DELMA Roldan
[2019-10-20 12:30] VITALS: BP 148/90
--- NOTE | 2019-10-20 15:44 | NUR ---
Nursing Progress Note: Legal hold: LPS Client on involuntary status for GD Report received from Charity LOVE, with use of SBAR Why are they here: 73 year old female with history of Schizophrenia. [facility] was brought from [facility] because she her health has been steadily declining over the past six weeks and clinician at this facility established that patient needed a higher level of care. Worsening paranoid delusions. Patient has lost weight, is not engaging in any activities outside of her home, is refusing to wash her clothing, or take showers. She becomes irritable when confronted about her hygiene. She has been having decreased energy levels. Patient is not able to take care of basic needs by herself, [facility] evaluated the patient and placed her on a 5150 hold for gravely disabled. Assessment What has happened this shift: Pt pleasant and cooperative today. She did state this morning that she missed having cinnamon rolls with her coffee, "and I miss my chewing gum too." Pt stated that her blood pressures have been good, that she doesn't think that it will ever be in the 200's again, "I've been good about taking the medicine." Pt found out a little later in the shift that she is being discharged early tomorrow morning at 0630 to a [facility] in [place] near [facility]. Pt excited, went around telling everyone that she was leaving tomorrow and that she will be able to smoke cigarettes and have real coffee. "and I can get a suntan, I was so dark when I first came in here that I looked dirty." Pt states that with caffeine, she will be able to walk again, that caffeine gives her energy to walk better. S/I, H/I: Pt denies A/VH: Pt denies Sleep: Slept 5 hours per noc shift report. ADL's: Independent with prompting and encouragement Group attendance: Yes Were meds taken: Yes Any med S/E: None noted or reported Mental Status Exam Appearance: Long black, dread-lock wig and jeans Eye contact: Good Behavior: Pleasant, cooperative Speech: Clear, audible, high-pitched little girl-like voice, talkative today Mood: Excited Affect: Animated Thought process: Circumstantial, perseverative Thought Content: Proud of herself for taking her blood pressure medication, excited about being discharged tomorrow to a board and care in [facility] where she can drink real coffee, smoke cigarettes, and sun parmar. Cognition: A/O X 3, forgetful repeats herself frequently Insight: Fair Judgment: Fair Interventions PRN's used: None Therapeutic interventions: 1:1 assessment, active listening, therapeutic conversation, encouragement to shower/perform personal hygiene, positive reinforcement, maintained safe therapeutic milieu, BP monitoring and education, medication administration/education/monitoring, Q15 min safety checks. Restraints/seclusion/emergency medication: None Justification of Continued Inpatient Treatment: Patient is being discharged tomorrow morning to [facility], a board and care in [facility].
[2019-10-20 17:02] VITALS: BP 126/66
[2019-10-20] MEDS: lurasidone 60mg tablet PO SCH (17:08)
[2019-10-20] MEDS: oxybutynin 5mg tablet PO SCH (19:46)
[2019-10-20] MEDS: LORazepam 1 MG tablet PO SCH (19:46)
[2019-10-20 20:00] VITALS: BP 111/61
--- NOTE | 2019-10-21 02:04 | NUR ---
Nursing Progress Note: Legal hold: LPS Client on involuntary status for GD Report received from [facility], with use of SBAR Why are they here: 73 year old female with history of Schizophrenia. [facility] Patient was brought from [facility] because she her health has been steadily declining over the past six weeks and clinician at this facility established that patient needed a higher level of care. Worsening paranoid delusions. Patient has lost weight, is not engaging in any activities outside of her home, is refusing to wash her clothing, or take showers. She becomes irritable when confronted about her hygiene. She has been having decreased energy levels. Patient is not able to take care of basic needs by herself, [facility] evaluated the patient and placed her on a 5150 hold for gravely disabled. Assessment What has happened this shift: Pt sitting in the group room majority of shift, engaging with peers and staff alike. Pt is excited to be discharging stating "I'm going to have cigarettes and real coffee. There might be a store that I can shop at, too, when I need something." Pt became demanding with staff to let her go through her belongings; staff obliged and pt felt better knowing her belongings were properly inventoried. Pt took all HS medications, and would intermittently wake up to request snacks or seek reassurance from staff that her belongings will be going with her when she is discharged in the morning. S/I, H/I: Denies A/VH: Denies Sleep: See Sleep Assessment ADL's: Independent with prompting and encouragement Group attendance: N/A Were meds taken: Yes Any med S/E: None noted nor reported Mental Status Exam Appearance: Long black, dread-lock wig and jeans, unit scrub top, and oversized soft jacket Eye contact: Good Behavior: Pleasant, cooperative, conversing with peers and staff in group room Speech: Clear, audible, high-pitched little girl-like voice,hyperverbal Mood: Excited Affect: Blunted Thought process: Circumstantial, Perseverative Thought Content: Excited about being discharged, Focused on ensuring belongings will be going with her upon discharge Cognition: A/Ox3, forgetful repeats herself frequently Insight: Fair Judgment: Fair Interventions PRN's used: None Therapeutic interventions: 1:1 assessment, active listening, therapeutic conversation, encouragement to shower/perform personal hygiene, positive reinforcement, maintained safe therapeutic milieu, BP monitoring and education, medication administration/education/monitoring, Q15 min safety checks. Restraints/seclusion/emergency medication: None Justification of Continued Inpatient Treatment: Patient is being discharged tomorrow morning to [facility], [facility]. Addendum: 10/21/19 at 0609 by Jayne Gonzalez RN Pt was in and out of room throughout the night, did not wish to sleep. Used headphones to stay occupied and calm. AM medications are given early due to pending discharge at 629. BP: 147/74, HR 98 prior to lasix and propranolol administration. Addendum: 10/21/19 at 0632 by Jayne Gonzalez RN Pt provided with yogurt, uncrustable, and coffee as she wanted breakfast prior to discharge. Addendum: 10/21/19 at 0633 by Jayne Gonzalez RN Report given to [facility] update on current status of discharge steps, she will continue and complete.
[2019-10-21] MEDS: benztropine 1mg tablet PO SCH (06:11)
[2019-10-21 06:14] VITALS: BP_SYST 147
[2019-10-21] MEDS: cloNIDine 0.1 mg tablet PO SCH ×2 (06:14)
[2019-10-21] MEDS: lisinopril 20mg tablet PO SCH (06:14)
[2019-10-21] MEDS: furosemide 20MG tablet PO SCH (06:14)
[2019-10-21] MEDS: propranolol 10mg tablet PO SCH (06:15)
[2019-10-21] MEDS: lurasidone 20mg tablet PO SCH (06:15)
[2019-10-21] MEDS: divalproex sod 125mg sprinkle cap PO SCH (06:16)
--- NOTE | 2019-10-21 06:57 | NUR ---
DISCHARGE NOTE: Patient's belongings, medications and two sack lunches were sent with patient. Drivers from [facility] are here to transport to facility. Patient is anxious and disagreeable on discharge. No SI. Patient is discharged in stable condition.
== END 2019-10-21 07:00 | disposition short-term general hospital (02) | DRG 885 ==
LOC: ADULT MH 15:50
PROVIDERS: ADMIT Psychiatry & Neurology Psychiatry; ATTEND Psychiatry & Neurology Psychiatry
DX: F25.9 Schizoaffective disorder, unspecified (principal); I10 Essential (primary) hypertension; F17.210 Nicotine dependence, cigarettes, uncomplicated; G20 Parkinson's disease; Z88.0 Allergy status to penicillin; Z88.8 Allergy status to other drugs, medicaments and biological substances; Z79.899 Other long term (current) drug therapy; Z71.6 Tobacco abuse counseling
CPT/HCPCS: 36415; 71045; 80053; 80061; 80164; 80305; 80320; 81001; 83036; 83735; 83880; 84100; 84443; 85025; 87081; 93306; 99285